=== PATIENT | male | born 1960 | race African-American/Black ===

== ENCOUNTER → 2016-10-28 | Outpatient (CLI) | payer MEDICARE, MEDICAID ==
--- NOTE | 2016-11-17 01:24 | ECWPNPC ---
PATIENT NAME: DELL MCCANN : 1960 GENDER: MALE VISIT DATE: 10/28/2016 DISCHARGE DATE: 10/28/16 1024 VISIT LOCKED DATE TIME: PHYSICIAN: SATYA SLAUGHTER RESOURCE: SATYA SLAUGHTER REASON FOR APPOINTMENT 1. BACK PAIN HISTORY OF PRESENT ILLNESS HISTORY OF PRESENT ILLNESS: HERE FOR F/U. PAIN THE PATIENT DESCRIBES THE PAIN... FALL RISK SCREENING: SCREENING :NO FALLS IN THE PAST YEAR NEW PATIENT CONSULT: HERE FOR F/U AFTER INITIAL EVALUATION ONE MONTH AGO.COMPLAINING OF MIGRAINE HEADACHES WITH TRAMADOL.RATING LOW BACK PAIN 8/10 VAS.HAD LESI IN [place] IN 2008 AND 2009 AND HAD ONLY 2WEEKS IMPROVEMENT.NOT INTERESTED IN INTERVENTIONAL THERAPY.WAS USING PERCOCET 5/325 BID THAT PATIENT FOUND HELPFUL.THIS ALLOWED HIM TO BE ABLE TO GET OUT OF BED.NOW HE HAS TO USE WALKER.STATES TRAMADOL WAS RECENTLY PRESCRIBED BUT PATIENT WAS UNABLE TO GET FILLED AT PHARMACY.RATING PAIN VAS 8/10.PAIN BEGAN IN 1997 AFTER LIFTING REFRIGERATOR GOING UP STAIRS.PAIN IS LOCATED ACROSS LOW BACK AND RADIATES INTO BILATERAL THIGHS.PAIN IS AGGREVATED BY PROLONGED STANDING OR WALKING. WHEN DID YOUR PAIN FIRST START? . BRIEFLY DESCRIBE HOW YOUR PAIN STARTED? . HOW DOES YOUR PAIN CHANGE WITH TIME? . DOES YOUR PAIN AWAKEN YOU FROM SLEEP? . HOW MANY HOURS OF SLEEP DO YOU NORMALLY GET? . ANY DIAGNOSTIC TESTING? . FACILITY WHERE TESTS WERE DONE? ____. PAIN TREATMENT TREATMENT YES CANCER HAVE YOU EVER HAD ANY TYPE OF CANCER?NO NO. CURRENT MEDICATIONS TAKING ALBUTEROL SULFATE (2.5 MG/3ML) 0.083% NEBULIZATION SOLUTION 3 ML INHALATION FOUR TIMES DAILY NEEDED TAKING NEBULIZER/TUBING/MOUTHPIECE - KIT TAKING NEBULIZER - DEVICE TAKING BLOOD PRESSURE MONITOR - DEVICE TAKING LANCET DEVICES - MISCELLANEOUS ICD:E11.9 _ FSBS TWICE DAILY TAKING LANCETS - MISCELLANEOUS ICD:E11.9 SUBCUTANEOUSLY FSBS TWICE DAILY TAKING SERTRALINE HCL 50 MG TABLET 1 TABLET ORALLY ONCE A DAY TAKING SINGULAIR 10 MG TABLET 1 TABLET IN THE EVENING ORALLY ONCE A DAY TAKING AMLODIPINE BESY-BENAZEPRIL HCL 2.5-10 MG CAPSULE DIRECTED ORALLY ONCE DAILY TAKING DICLOFENAC SODIUM 75 MG TABLET DELAYED RELEASE 1 TABLET WITH FOOD OR MILK ORALLY TWICE A DAY TAKING BLOOD GLUCOSE TEST STRIP - STRIP ICD:E11.9 IN VITRO FSBS TWICE DAILY TAKING NEBULIZER - DEVICE DIRECTED J44.9 FOUR TIMES DAILY NEEDED TAKING METFORMIN HCL 500 MG TABLET 1 TABLET WITH MEALS ORALLY DAILY TAKING ATORVASTATIN CALCIUM 80 MG TABLET 1 TABLET ORALLY ONCE A DAY TAKING CYCLOBENZAPRINE HCL 10 MG TABLET 1 TABLET ORALLY THREE TIMES A DAY NEEDED TAKING OXYBUTYNIN CHLORIDE ER 10 MG TABLET EXTENDED RELEASE 24 HOUR 1 TABLET ORALLY ONCE A DAY TAKING BLOOD GLUCOSE METER - KIT MONITOR ICD:E11.9 FSBS TWICE DAILY TAKING VENTOLIN HFA 108 (90 BASE) MCG/ACT AEROSOL SOLUTION 2 PUFFS NEEDED INHALATION EVERY 4 HRS PRN TAKING BLOOD PRESSURE CUFF - MISCELLANEOUS DIRECTED _ DAILY TAKING PRILOSEC 40 MG CAPSULE DELAYED RELEASE 1 CAPSULE ORALLY ONCE A DAY NOT-TAKING TRAMADOL HCL 50 MG TABLET 1 TABLET NEEDED ORALLY EVERY 6 HRS MDD:4 NOT-TAKING PRILOSEC 20 MG CAPSULE DELAYED RELEASE 1 CAP ORALLY ONCE A DAY PAST MEDICAL HISTORY HYPERTENSION DIABETES 2 HYPERLIPIDEMIA CHRONIC BACK PAIN CHRONIC BILATERAL KNEE PAIN - "ARTHRITIS" DEPRESSION WITH SUICIDE ATTEMPT IN 2011 - [facility] STAY FOR 1 MONTH ALLERGIES PENICILLIN V POTASSIUM: SWELLING: ALLERGY TRAMADOL HCL: HEADACHES: SIDE EFFECTS SOCIAL HISTORY GENERAL: TOBACCO USE ARE YOU A:CURRENT SMOKER HOW MANY CIGARETTES A DAY DO YOU SMOKE?- PATIENT COUNSELED ON THE DANGERS OF TOBACCO USE AND URGED TO QUIT:10/28/2016 ARE YOU INTERESTED IN QUITTING?THINKING ABOUT QUITTING COUNSELED THE PATIENT ON SMOKING CESSATION, EDUCATION [id number] LEARNING BARRIERS / SPECIAL NEEDS ORIENTED TO PLAN OF CARE: PATIENT, PAIN MANAGEMENT PATIENT, ORIENTED TO PLAN OF CARE: PATIENT, PAIN MANAGEMENT PATIENT. NEW PATIENT PAIN DIARY TODAY'S VISITNOTES FROM 0-10, WHAT LEVEL IS YOUR PAIN TODAY?0 PAIN CLINIC PFS, CLERGY, PUBLIC HEALTH REFERRALS PFS REFERRAL NEEDED?NO CLERGY REFERRAL NEEDED?NO PUBLIC HEALTH REFERRAL NEEDED?NO WAS THE PROVIDER NOTIFIED OF ANY PERTINENT INFO?NO PFS REFERRAL NEEDED?NO CLERGY REFERRAL NEEDED?NO PUBLIC HEALTH REFERRAL NEEDED?NO WAS THE PROVIDER NOTIFIED OF ANY PERTINENT INFO?NO REVIEW OF SYSTEMS CONSTITUTIONAL: ANY CHANGE IN YOUR MEDICAL CONDITION? NO . CHILLS NO . FEVER NO . INFECTION: DO YOU HAVE NEW INFECTIONS? NO . DO YOU HAVE HISTORY OF MRSA? NO . MUSCULOSKELETAL: ANY NEW PATTERNS OF PAIN OR NUMBNESS? NO . GASTROENTEROLOGY: ANY NEW CHANGE IN BOWEL CONTROL? YES . GENITOURINARY: ANY NEW CHANGE IN BLADDER CONTROL? NO . IS THERE A CHANCE YOU COULD BE ? NO . HEMATOLOGY/LYMPH: DO YOU TAKE ANY BLOOD THINNERS? (FOR EXAMPLE- COUMADIN, PLAVIX, AGGRENOX, PLATEL, PRADAXA, OR XARELTO) NO . WHEN WAS YOUR LAST DOSE? DATE: TIME: . NEUROLOGY: HAVE YOU FALLEN IN THE PAST 6 MONTHS? NO . ANY NEW EXTREMITY NUMBNESS OR WEAKNESS? NO . CARDIOLOGY: DO YOU HAVE A PACEMAKER OR DEFIBRILLATOR? NO . RESPIRATORY: HAVE YOU BEEN SICK IN THE PAST WEEK? NO . FEVER NO . FLU LIKE SYMPTOMS? NO . COUGH NO . INTEGUMENTARY: DO YOU HAVE ANY RASHES OR OPEN SORES? NO . ALLERGIC/IMMUNO: ARE YOU ALLERGIC TO SHELLFISH OR IV DYE? NO . ANY NEW ALLERGIES? NO . PSYCHIATRIC: DO YOU HAVE THOUGHTS OF HURTING YOURSELF OR SOMEONE ELSE? NO . ARE YOU ABUSED, NEGLECTED, OR IN AN UNSAFE ENVIRONMENT? NO . ENDOCRINOLOGY: ARE YOU DIABETIC? YES . OTHER: DO YOU NEED ANY PRESCRIPTIONS? NO . IF YES, PLEASE LIST: ____ . ANY NEW PROBLEMS WITH YOUR MEDICATIONS? NO . WHEN DID YOU LAST EAT? ____ . WHEN DID YOU LAST DRINK? ____ . WHAT DID YOU LAST DRINK? ____ . NAME OF PERSON DRIVING YOU HOME? ____ . DO YOU HAVE ANY OTHER QUESTIONS OR CONCERNS NO . REVIEWED BY: PROVIDER: SATYA HERNÁNDEZ . VITAL SIGNS WT 203.8 LBS, HT 71 IN, BMI 28.42 INDEX, BP 133/77 MM HG, HR 92 /MIN, RR 16 /MIN, TEMP 97.0 F, OXYGEN SAT % 100, NA INITIALS TL 0922. EXAMINATION GENERAL EXAMINATION: HEENT:HEAD:, NORMOCEPHALIC, EYES:, EYES NORMAL, NOSE:, NOSE CLEAR, THROAT: NORMAL. LUNGS:LUNG SOUNDS ARE CLEAR. HEART:HEART RATE REGULAR. ABDOMEN:SOFT AND NOT TENDER, NON-DISTENDED. MUSCULOSKELETAL:*. LUMBAR SACRAL SPINEMUSCLE STRENGTH TESTING 5/5 BILATERAL LOWER EXTREMITIES. PALPATION: POSITIVE FOR PAIN OVER L/S SPINE. POSITIVE FOR PAIN OVER L/S PARSPINALS. THORACIC SPINENEGATIVE FOR PAIN WITH PALPATION OF THORACIC SPINE. NEGATIVE FOR PAIN WITH PALPATION OF THORACIC PARASPINAL. CERVICALNEGATIVE FOR PAIN WITH PALPATION OF CERVICAL SPINE. NEGATIVE FOR PAIN WITH PALPATION OF CERVICAL PARASPINALS. NEGATIVE FOR PAIN WITH PALPATION OF TRAPEZIUS BILAT. SKIN:NORMAL, NO RASH. NEUROLOGIC EXAM:ALERT AND ORIENTED X 3, DTRS 1-2+ IN ALL 4 EXTREMITIES, DENIES UPPER EXTREMETIES SENSORY LOSS, DENIES LOWER EXTREMETIES SENSORY LOSS. DIAGNOSTIC: . ASSESSMENTS LUMBAGO WITH SCIATICA, LEFT SIDE - M54.42 (PRIMARY) LUMBAGO WITH SCIATICA, RIGHT SIDE - M54.41 TREATMENT LUMBAGO WITH SCIATICA, LEFT SIDE NOTES: GET ACETAMINOPHEN 650MG TAB TAKE 2 IN AM AND 2 IN PM.CONTINUE CYCLOBENZAPRINE 10MG THREE TIMES DAY AND DICLOFENAC 75MG AM AND PM. PROCEDURE CODES FA211 ESTABILISHED PATIENT [facility] FACILITY CHARGE G8730 PAIN ASSESS POS TOOL F/U PLAN DOC G8427 DOC MEDS VERIFIED W/PT OR RE FOLLOW UP 4 WEEKS (REASON: F/U MRI) ELECTRONICALLY SIGNED BY EDGAR RAMIREZ ON 11/15/2016 AT 04:15 PM EST DISCLAIMER : THIS IS A VISIT SUMMARY EXTRACTED FROM THE [facility] CHART. IT IS NOT A COPY OF THE [employer] PROGRESS NOTE. SHELBY
== END ==
LOC: M PAIN 09:40
PROVIDERS: ATTEND Nurse Practitioner Family
DX: Z09 Encounter for follow-up examination after completed treatment for conditions other than malignant neoplasm (principal); G89.29 Other chronic pain; M54.42 Lumbago with sciatica, left side; M54.41 Lumbago with sciatica, right side; I10 Essential (primary) hypertension; E11.9 Type 2 diabetes mellitus without complications; E78.5 Hyperlipidemia, unspecified; M17.0 Bilateral primary osteoarthritis of knee; F32.9 Major depressive disorder, single episode, unspecified; F17.200 Nicotine dependence, unspecified, uncomplicated; Z88.0 Allergy status to penicillin; Z88.5 Allergy status to narcotic agent; Z79.84 Long term (current) use of oral hypoglycemic drugs; Z79.899 Other long term (current) drug therapy; Z91.5 Personal history of self-harm

== ENCOUNTER → 2016-11-24 | Outpatient (CLI) | payer MEDICARE, MEDICAID ==
--- NOTE | 2016-12-02 00:31 | ECWPNPC ---
PATIENT NAME: DELL MCCANN : 1960 GENDER: MALE VISIT DATE: 11/24/2016 DISCHARGE DATE: 11/24/16 1013 VISIT LOCKED DATE TIME: PHYSICIAN: SATYA SLAUGHTER RESOURCE: SATYA SLAUGHTER REASON FOR APPOINTMENT 1. KECIA/NEED IESHA SIGNED FOR RECORDS HISTORY OF PRESENT ILLNESS HISTORY OF PRESENT ILLNESS: HERE FOR F/U AND MANAGEMENT OF CHRONIC LOW BACK PAIN AND BILAT. LEG PAIN.RATING PAIN VAS 7/10 .REVIEWED MRI L/S SPINE 11-03-16.SHOWING MULTI LEVEL FACET ARTHROPATHY.DISCUSSED MEDICINE AND TREATMENT OPTIONS.TRAMADOL CAUSES MIGRAINES AND CURRENT TYLENOL 500MG BID INEFFECTIVE.DESCRIBES PAIN ACHING AND SORE. FALL RISK SCREENING: SCREENING :NO FALLS IN THE PAST YEAR CURRENT MEDICATIONS TAKING NEBULIZER/TUBING/MOUTHPIECE - KIT TAKING LANCET DEVICES - MISCELLANEOUS ICD:E11.9 _ FSBS TWICE DAILY TAKING LANCETS - MISCELLANEOUS ICD:E11.9 SUBCUTANEOUSLY FSBS TWICE DAILY TAKING SERTRALINE HCL 50 MG TABLET 1 TABLET ORALLY ONCE A DAY TAKING SINGULAIR 10 MG TABLET 1 TABLET IN THE EVENING ORALLY ONCE A DAY TAKING AMLODIPINE BESY-BENAZEPRIL HCL 2.5-10 MG CAPSULE DIRECTED ORALLY ONCE DAILY TAKING DICLOFENAC SODIUM 75 MG TABLET DELAYED RELEASE 1 TABLET WITH FOOD OR MILK ORALLY TWICE A DAY TAKING BLOOD GLUCOSE TEST STRIP - STRIP ICD:E11.9 IN VITRO FSBS TWICE DAILY TAKING NEBULIZER - DEVICE DIRECTED J44.9 FOUR TIMES DAILY NEEDED TAKING METFORMIN HCL 500 MG TABLET 1 TABLET WITH MEALS ORALLY DAILY TAKING ATORVASTATIN CALCIUM 80 MG TABLET 1 TABLET ORALLY ONCE A DAY TAKING CYCLOBENZAPRINE HCL 10 MG TABLET 1 TABLET ORALLY THREE TIMES A DAY NEEDED TAKING OXYBUTYNIN CHLORIDE ER 10 MG TABLET EXTENDED RELEASE 24 HOUR 1 TABLET ORALLY ONCE A DAY TAKING BLOOD GLUCOSE METER - KIT MONITOR ICD:E11.9 FSBS TWICE DAILY TAKING BLOOD PRESSURE CUFF - MISCELLANEOUS DIRECTED _ DAILY TAKING PRILOSEC 40 MG CAPSULE DELAYED RELEASE 1 CAPSULE ORALLY ONCE A DAY TAKING BLOOD PRESSURE MONITOR - DEVICE 1 MONITOR _DX:I10 DAILY TAKING ALBUTEROL SULFATE (2.5 MG/3ML) 0.083% NEBULIZATION SOLUTION 3 ML INHALATION FOUR TIMES DAILY NEEDED TAKING NEBULIZER - DEVICE 1 DEVICE DX:J45.998 FOUR TIMES DAILY NEEDED TAKING VENTOLIN HFA 108 (90 BASE) MCG/ACT AEROSOL SOLUTION 2 PUFFS NEEDED INHALATION EVERY 4 HRS PRN NOT-TAKING PRILOSEC 20 MG CAPSULE DELAYED RELEASE 1 CAP ORALLY ONCE A DAY DISCONTINUED TRAMADOL HCL 50 MG TABLET 1 TABLET NEEDED ORALLY EVERY 6 HRS MDD:4 MEDICATION LIST REVIEWED AND RECONCILED WITH THE PATIENT PAST MEDICAL HISTORY HYPERTENSION DIABETES 2 HYPERLIPIDEMIA CHRONIC BACK PAIN CHRONIC BILATERAL KNEE PAIN - "ARTHRITIS" DEPRESSION WITH SUICIDE ATTEMPT IN 2012 - [facility] STAY FOR 1 MONTH ALLERGIES PENICILLIN V POTASSIUM: SWELLING: ALLERGY TRAMADOL HCL: MIGRAINES: SIDE EFFECTS SOCIAL HISTORY GENERAL: TOBACCO USE ARE YOU A:CURRENT SMOKER HOW MANY CIGARETTES A DAY DO YOU SMOKE?5 OR LESS HOW SOON AFTER YOU WAKE UP DO YOU SMOKE YOUR FIRST CIGARETTE?6-30 MIN HOW OFTEN DO YOU SMOKE CIGARETTES?EVERY DAY PATIENT COUNSELED ON THE DANGERS OF TOBACCO USE AND URGED TO QUIT: COUNCELED ON THE IMPORTANCE OF QUITTING. STATES HE IS TRYING TO DECREASE THE AMT HE SMOKES. DOWN FROM 2PPD ARE YOU INTERESTED IN QUITTING?THINKING ABOUT QUITTING LEARNING BARRIERS / SPECIAL NEEDS ORIENTED TO PLAN OF CARE: PATIENT, PAIN MANAGEMENT PATIENT, ORIENTED TO PLAN OF CARE: PATIENT, PAIN MANAGEMENT PATIENT. NEW PATIENT PAIN DIARY TODAY'S VISITNOTES FROM 0-10, WHAT LEVEL IS YOUR PAIN TODAY?0 PAIN CLINIC PFS, CLERGY, PUBLIC HEALTH REFERRALS PFS REFERRAL NEEDED?NO CLERGY REFERRAL NEEDED?NO PUBLIC HEALTH REFERRAL NEEDED?NO WAS THE PROVIDER NOTIFIED OF ANY PERTINENT INFO?NO PFS REFERRAL NEEDED?NO CLERGY REFERRAL NEEDED?NO PUBLIC HEALTH REFERRAL NEEDED?NO WAS THE PROVIDER NOTIFIED OF ANY PERTINENT INFO?NO REVIEW OF SYSTEMS CONSTITUTIONAL: ANY CHANGE IN YOUR MEDICAL CONDITION? NO . CHILLS NO . FEVER NO . INFECTION: DO YOU HAVE NEW INFECTIONS? NO . DO YOU HAVE HISTORY OF MRSA? NO . MUSCULOSKELETAL: ANY NEW PATTERNS OF PAIN OR NUMBNESS? NO . GASTROENTEROLOGY: ANY NEW CHANGE IN BOWEL CONTROL? NO . GENITOURINARY: ANY NEW CHANGE IN BLADDER CONTROL? NO . IS THERE A CHANCE YOU COULD BE ? NO . HEMATOLOGY/LYMPH: DO YOU TAKE ANY BLOOD THINNERS? (FOR EXAMPLE- COUMADIN, PLAVIX, AGGRENOX, PLATEL, PRADAXA, OR XARELTO) NO . WHEN WAS YOUR LAST DOSE? DATE: TIME: . NEUROLOGY: HAVE YOU FALLEN IN THE PAST 6 MONTHS? YES, APPROX 2 WEEKS, NO INJURIES . ANY NEW EXTREMITY NUMBNESS OR WEAKNESS? NO . CARDIOLOGY: DO YOU HAVE A PACEMAKER OR DEFIBRILLATOR? NO . RESPIRATORY: HAVE YOU BEEN SICK IN THE PAST WEEK? NO . FEVER NO . FLU LIKE SYMPTOMS? NO . COUGH NO . INTEGUMENTARY: DO YOU HAVE ANY RASHES OR OPEN SORES? NO . ALLERGIC/IMMUNO: ARE YOU ALLERGIC TO SHELLFISH OR IV DYE? NO . ANY NEW ALLERGIES? NO . PSYCHIATRIC: DO YOU HAVE THOUGHTS OF HURTING YOURSELF OR SOMEONE ELSE? NO . ARE YOU ABUSED, NEGLECTED, OR IN AN UNSAFE ENVIRONMENT? NO . ENDOCRINOLOGY: ARE YOU DIABETIC? YES . OTHER: IF YES, PLEASE LIST: ____ . ANY NEW PROBLEMS WITH YOUR MEDICATIONS? NO . WHEN DID YOU LAST EAT? ____ . WHEN DID YOU LAST DRINK? ____ . WHAT DID YOU LAST DRINK? ____ . NAME OF PERSON DRIVING YOU HOME? ____ . DO YOU HAVE ANY OTHER QUESTIONS OR CONCERNS YES, NEEDS SOMETHING FOR PAIN AND ? PORTABLE TENS UNIT . REVIEWED BY: PROVIDER: SATYA HERNÁNDEZ . VITAL SIGNS WT 215 LBS, HT 71 IN, BMI 29.98 INDEX, BP 126/83 MM HG, HR 78 /MIN, RR 18 /MIN, TEMP 97.0 F, OXYGEN SAT % 98, NA INITIALS TL 0859, REVIEWED BY: AD. EXAMINATION GENERAL EXAMINATION: HEENT:HEAD:, NORMOCEPHALIC, EYES:, EYES NORMAL, NOSE:, NOSE CLEAR, THROAT: NORMAL. LUNGS:LUNG SOUNDS ARE CLEAR. HEART:HEART RATE REGULAR. ABDOMEN:SOFT AND NOT TENDER, NON-DISTENDED. MUSCULOSKELETAL:*. LUMBAR SACRAL SPINEMUSCLE STRENGTH TESTING 5/5 BILATERAL LOWER EXTREMITIES. PALPATION: POSITIVE FOR PAIN OVER L/S SPINE. POSITIVE FOR PAIN OVER L/S PARSPINALS. THORACIC SPINENEGATIVE FOR PAIN WITH PALPATION OF THORACIC SPINE. NEGATIVE FOR PAIN WITH PALPATION OF THORACIC PARASPINAL. CERVICALNEGATIVE FOR PAIN WITH PALPATION OF CERVICAL SPINE. NEGATIVE FOR PAIN WITH PALPATION OF CERVICAL PARASPINALS. NEGATIVE FOR PAIN WITH PALPATION OF TRAPEZIUS BILAT. SKIN:NORMAL, NO RASH. NEUROLOGIC EXAM:ALERT AND ORIENTED X 3, DTRS 1-2+ IN ALL 4 EXTREMITIES, DENIES UPPER EXTREMETIES SENSORY LOSS, DENIES LOWER EXTREMETIES SENSORY LOSS. DIAGNOSTIC:MRI L/S SUOPO-[id number]-REVIEWED WITH PATIENT.. ASSESSMENTS LUMBAR FACET ARTHROPATHY - M12.88 (PRIMARY) TREATMENT LUMBAR FACET ARTHROPATHY START PERCOCET TABLET, 5-325 MG, 1 TABLET NEEDED, ORALLY, Q8H PRN PAIN MDD3, 30 DAY(S), 30, REFILLS 0 LUMBAR FACET THERAPEUTICSATYA SLAUGHTER 12/01/2016 9:55:18 AM > BILAT. L4/5-L5/S1 THERAPEUTIC FACET BLOCK NOTES: FACET JOINT INJECTION MATERIAL WAS PRINTED,FACET JOINT INJECTION: YOUR EXPERIENCE MATERIAL WAS PRINTED,FACET JOINT INJECTION: YOUR EXPERIENCE MATERIAL WAS PRINTED. PREVENTIVE MEDICINE PAIN CLINIC TEACHING: MEDICATIONS PRINTED INFORMATION ON PERCOCET GIVEN TO AND EXPLAINED TO PATIENT.. PROCEDURE CODES FA211 ESTABILISHED PATIENT [facility] CHARGE G8730 PAIN ASSESS POS TOOL F/U PLAN DOC G8427 DOC MEDS VERIFIED W/PT OR RE DISPOSITION & COMMUNICATION FOLLOW UP 2WK POST PROCEDURE (REASON: LUMBAR L4/5-L5/S1 THERAPEUTIC FACET BLOCK) ELECTRONICALLY SIGNED BY EDGAR RAMIREZ ON 12/01/2016 AT 09:57 AM EST DISCLAIMER : THIS IS A VISIT SUMMARY EXTRACTED FROM THE [employer] CHART. IT IS NOT A COPY OF THE [employer] PROGRESS NOTE. SHELBY
== END ==
LOC: M PAIN 09:00
PROVIDERS: ATTEND Nurse Practitioner Family
DX: Z09 Encounter for follow-up examination after completed treatment for conditions other than malignant neoplasm (principal); G89.29 Other chronic pain; M12.88 Other specific arthropathies, not elsewhere classified, other specified site; M54.42 Lumbago with sciatica, left side; M54.41 Lumbago with sciatica, right side; I10 Essential (primary) hypertension; E11.9 Type 2 diabetes mellitus without complications; E78.5 Hyperlipidemia, unspecified; K21.9 Gastro-esophageal reflux disease without esophagitis; F32.9 Major depressive disorder, single episode, unspecified; J45.998 Other asthma; F17.200 Nicotine dependence, unspecified, uncomplicated; Z88.0 Allergy status to penicillin; Z88.5 Allergy status to narcotic agent; Z79.84 Long term (current) use of oral hypoglycemic drugs; Z79.899 Other long term (current) drug therapy; Z91.5 Personal history of self-harm

== ENCOUNTER 2016-12-15 10:22 | Emergency (ER) | payer MEDICARE, MEDICAID ==
[~2016-12-15] VITALS: Ht 180.3 cm; Wt 93.0 kg
[2016-12-15] MEDS ORDERED: SERT50TA (10:44)
[2016-12-15] MEDS ORDERED: ATOR1TAB18 (10:44)
[2016-12-15] MEDS ORDERED: AMLOD/BENAZP (10:44)
[2016-12-15] MEDS ORDERED: METF500T (10:44)
[2016-12-15] MEDS ORDERED: DICL75TA (10:44)
[2016-12-15] MEDS ORDERED: OXYCOD/APAP (10:44)
[2016-12-15] MEDS ORDERED: OXYB10TA PO (10:51)
[2016-12-15] MEDS ORDERED: CYCL10TA PO (10:51)
[2016-12-15] MEDS ORDERED: ALBU17IN INH (10:51)
--- NOTE | 2016-12-15 11:51 | REP ---
Chest x-ray: Two views. History: Cough. Comparison study: July 31, 2016 . Findings: The lungs are well inflated and free of infiltrate. The pleural angles are sharp. The heart size is normal. Pulmonary vasculature is not increased. There is a small bone island in the anterior end of the right 8th rib unchanged. There are some degenerative changes in the thoracic spine. No significant bony abnormality is seen. Impression: No active disease. Signed by Akbar Walker MD 12/15/2016 11:42 A
[2016-12-15] MEDS ORDERED: TESS100C PO (11:56)
[2016-12-15] MEDS ORDERED: FLON1SPR (11:56)
[2016-12-15 12:26] VITALS: BP 138/96
== END 2016-12-15 12:25 | disposition home or self-care (01) ==
LOC: M ED 11:24
DX: J06.9 Acute upper respiratory infection, unspecified (principal); E11.9 Type 2 diabetes mellitus without complications; I10 Essential (primary) hypertension; J45.909 Unspecified asthma, uncomplicated; K21.9 Gastro-esophageal reflux disease without esophagitis; F32.9 Major depressive disorder, single episode, unspecified; Z88.8 Allergy status to other drugs, medicaments and biological substances; Z88.0 Allergy status to penicillin; Z79.84 Long term (current) use of oral hypoglycemic drugs; Z79.899 Other long term (current) drug therapy; E78.00 Pure hypercholesterolemia, unspecified; M54.9 Dorsalgia, unspecified; F90.9 Attention-deficit hyperactivity disorder, unspecified type

== ENCOUNTER → 2016-12-19 | Outpatient (CLI) | payer MEDICARE, MEDICAID ==
[~2016-12-19] MED LIST: ALBU17IN INH; AMLOD/BENAZP; ATOR1TAB18; BUPIVACAINE HCL 0.25% 30 ML VIAL As Ordered ONE; CYCL10TA PO; DICL75TA; FLON1SPR; ISOVUE-M 300 61% 15ML VIAL (Q9967) As Ordered ONE; LIDOCAINE 1% SDV INJ 30 ML VIAL As Ordered ONE; METF500T; OXYB10TA PO; OXYCOD/APAP; SERT50TA; TESS100C PO; TRIAMCINOLONE ACETONIDE SUSP 40 MG/ML VIAL (J3301) As Ordered ONE
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
== END ==
LOC: M PAIN 08:40
PROVIDERS: ATTEND Anesthesiology
DX: Z09 Encounter for follow-up examination after completed treatment for conditions other than malignant neoplasm (principal); G89.29 Other chronic pain; M47.816 Spondylosis without myelopathy or radiculopathy, lumbar region; M47.817 Spondylosis without myelopathy or radiculopathy, lumbosacral region; I10 Essential (primary) hypertension; E11.9 Type 2 diabetes mellitus without complications; E78.5 Hyperlipidemia, unspecified; M17.0 Bilateral primary osteoarthritis of knee; F32.9 Major depressive disorder, single episode, unspecified; Z88.0 Allergy status to penicillin; Z88.5 Allergy status to narcotic agent; Z79.84 Long term (current) use of oral hypoglycemic drugs; Z79.899 Other long term (current) drug therapy

== ENCOUNTER → 2016-12-21 | Outpatient (CLI) | payer MEDICARE, MEDICAID ==
[~2016-12-21] MED LIST changes: -BUPIVACAINE HCL 0.25% 30 ML VIAL As Ordered ONE; -ISOVUE-M 300 61% 15ML VIAL (Q9967) As Ordered ONE; -LIDOCAINE 1% SDV INJ 30 ML VIAL As Ordered ONE; -TRIAMCINOLONE ACETONIDE SUSP 40 MG/ML VIAL (J3301) As Ordered ONE
--- NOTE | 2016-12-21 23:26 | ECWPNPC ---
PATIENT NAME: DELL MCCANN : 1960 GENDER: MALE VISIT DATE: 12/21/2016 DISCHARGE DATE: 12/21/16 1544 VISIT LOCKED DATE TIME: PHYSICIAN: SATYA SLAUGHTER RESOURCE: SATYA SLAUGHTER REASON FOR APPOINTMENT 1. MEDS HISTORY OF PRESENT ILLNESS HISTORY OF PRESENT ILLNESS: HERE FOR F/U AND MANAGEMENT OF CHRONIC LOW BACK PAIN AND BILAT. LEG PAIN.RATING PAIN VAS 7/10 .STARTED ON PERCOCET 5/325 LAST MONTH #30 FOR A ONE MONTH SUPPLY.HE WAS GIVEN INSTRUCTION TO USE IT SPARINGLY FOR SEVERE PAIN EPISODES. STATES HE TOOK 2 PERCOCET 3X DAY AND RAN OUT LAST WEEK.ALSO TAKING 500MG IBUPROFEN 3X DAY PLUS DICLOFENAC BID.WE HAD A LONG DISCUSSION THAT TOOK >20MIN. OF EXAM TIME REGARDING POTENTIAL DANGERS OF HIGH DOSE NSAIDS AND ADJUSTING HIS MEDICATION ON HIS OWN.DISCUSSED MEDICINE AND TREATMENT OPTIONS.TRAMADOL CAUSES MIGRAINES AND CURRENT TYLENOL 500MG BID INEFFECTIVE.DESCRIBES PAIN ACHING AND SORE.RATING PAIN VAS 7/10.WILL BE ATTENDING PT.DENIES ACTIVE SUICIDAL IDEATIONS BUT DOES ADMIT THAT HE CALLED EMERGENCY COUNSELOR DUE TO SUICIDAL THOUGHTS. PAIN THE PATIENT DESCRIBES THE PAIN... THE PATIENT DESCRIBES THE PAIN... FALL RISK SCREENING: SCREENING :NO FALLS IN THE PAST YEAR CURRENT MEDICATIONS TAKING PRILOSEC 40 MG CAPSULE DELAYED RELEASE 1 CAPSULE ONCE A DAY ORALLY 30 DAY(S) , NOTES: 12-18-16899 TAKING PERCOCET 5-325 MG TABLET 1 TABLET NEEDED ORALLY Q8H PRN PAIN MDD3, NOTES: [id number] TAKING LANCET DEVICES - MISCELLANEOUS ICD:E11.9 _ FSBS TWICE DAILY TAKING LANCETS - MISCELLANEOUS ICD:E11.9 SUBCUTANEOUSLY FSBS TWICE DAILY TAKING SERTRALINE HCL 50 MG TABLET 1 TABLET ORALLY ONCE A DAY, NOTES: 12-18-16899 TAKING SINGULAIR 10 MG TABLET 1 TABLET IN THE EVENING ORALLY ONCE A DAY, NOTES: 12-18-16899 TAKING AMLODIPINE BESY-BENAZEPRIL HCL 2.5-10 MG CAPSULE DIRECTED ORALLY ONCE DAILY, NOTES: 12-18-16 TAKING DICLOFENAC SODIUM 75 MG TABLET DELAYED RELEASE 1 TABLET WITH FOOD OR MILK ORALLY TWICE A DAY, NOTES: 12-18-16899 TAKING BLOOD GLUCOSE TEST STRIP - STRIP ICD:E11.9 IN VITRO FSBS TWICE DAILY TAKING NEBULIZER - DEVICE DIRECTED J44.9 FOUR TIMES DAILY NEEDED, NOTES: 12-16-16 08 TAKING METFORMIN HCL 500 MG TABLET 1 TABLET WITH MEALS ORALLY DAILY, NOTES: 12-18-16799 TAKING ATORVASTATIN CALCIUM 80 MG TABLET 1 TABLET ORALLY ONCE A DAY, NOTES: 12-18-16899 TAKING CYCLOBENZAPRINE HCL 10 MG TABLET 1 TABLET ORALLY THREE TIMES A DAY NEEDED, NOTES: 12-18-16899 TAKING OXYBUTYNIN CHLORIDE ER 10 MG TABLET EXTENDED RELEASE 24 HOUR 1 TABLET ORALLY ONCE A DAY, NOTES: 12-18-16=0900 TAKING BLOOD GLUCOSE METER - KIT MONITOR ICD:E11.9 FSBS TWICE DAILY TAKING BLOOD PRESSURE CUFF - MISCELLANEOUS DIRECTED _ DAILY TAKING BLOOD PRESSURE MONITOR - DEVICE 1 MONITOR _DX:I10 DAILY TAKING ALBUTEROL SULFATE (2.5 MG/3ML) 0.083% NEBULIZATION SOLUTION 3 ML INHALATION FOUR TIMES DAILY NEEDED, NOTES: 12-16-16899 TAKING NEBULIZER - DEVICE 1 DEVICE DX:J45.998 FOUR TIMES DAILY NEEDED TAKING VENTOLIN HFA 108 (90 BASE) MCG/ACT AEROSOL SOLUTION 2 PUFFS NEEDED INHALATION EVERY 4 HRS PRN, NOTES: 12-16-16799 TAKING FLONASE ALLERGY RELIEF 50 MCG/ACT SUSPENSION 1 SPRAY IN EACH NOSTRIL NASALLY ONCE A DAY, NOTES: 12-18-16899 TAKING TESSALON PERLES 100 MG CAPSULE 1 CAPSULE NEEDED ORALLY THREE TIMES A DAY, NOTES: 12-16-16899 TAKING IBUPROFEN 2.5 TABS ORAL EVERY 4HRS NEEDED NOT-TAKING PRILOSEC 20 MG CAPSULE DELAYED RELEASE 1 CAP ORALLY ONCE A DAY UNKNOWN NEBULIZER/TUBING/MOUTHPIECE - KIT MEDICATION LIST REVIEWED AND RECONCILED WITH THE PATIENT PAST MEDICAL HISTORY HYPERTENSION DIABETES 2 HYPERLIPIDEMIA CHRONIC BACK PAIN CHRONIC BILATERAL KNEE PAIN - "ARTHRITIS" DEPRESSION WITH SUICIDE ATTEMPT IN 2011 - [facility] STAY FOR 1 MONTH ALLERGIES PENICILLIN V POTASSIUM: SWELLING: ALLERGY TRAMADOL HCL: MIGRAINES: SIDE EFFECTS SOCIAL HISTORY GENERAL: TOBACCO USE ARE YOU A:NONSMOKER LEARNING BARRIERS / SPECIAL NEEDS ORIENTED TO PLAN OF CARE: PATIENT, PAIN MANAGEMENT PATIENT, ORIENTED TO PLAN OF CARE: PATIENT, PAIN MANAGEMENT PATIENT. NEW PATIENT PAIN DIARY TODAY'S VISITNOTES FROM 0-10, WHAT LEVEL IS YOUR PAIN TODAY?0 PAIN CLINIC PFS, CLERGY, PUBLIC HEALTH REFERRALS PFS REFERRAL NEEDED?NO CLERGY REFERRAL NEEDED?NO PUBLIC HEALTH REFERRAL NEEDED?NO WAS THE PROVIDER NOTIFIED OF ANY PERTINENT INFO?NO PFS REFERRAL NEEDED?NO CLERGY REFERRAL NEEDED?NO PUBLIC HEALTH REFERRAL NEEDED?NO WAS THE PROVIDER NOTIFIED OF ANY PERTINENT INFO?NO REVIEW OF SYSTEMS CONSTITUTIONAL: ANY CHANGE IN YOUR MEDICAL CONDITION? NO . CHILLS NO . FEVER NO . INFECTION: DO YOU HAVE NEW INFECTIONS? NO . DO YOU HAVE HISTORY OF MRSA? NO . MUSCULOSKELETAL: ANY NEW PATTERNS OF PAIN OR NUMBNESS? YES PT NOTES 1 WEEK HX OF PAIN LEFT ELBOW TO LEFT NECK PAIN. PT DENIES CHEST PAIN. PT STATES PAIN IS WORSE WITH MOVEMENT OF LEFT ARM. . GASTROENTEROLOGY: ANY NEW CHANGE IN BOWEL CONTROL? NO . GENITOURINARY: ANY NEW CHANGE IN BLADDER CONTROL? NO . IS THERE A CHANCE YOU COULD BE ? NO . HEMATOLOGY/LYMPH: DO YOU TAKE ANY BLOOD THINNERS? (FOR EXAMPLE- COUMADIN, PLAVIX, AGGRENOX, PLATEL, PRADAXA, OR XARELTO) NO . WHEN WAS YOUR LAST DOSE? DATE: TIME: . NEUROLOGY: HAVE YOU FALLEN IN THE PAST 6 MONTHS? NO . ANY NEW EXTREMITY NUMBNESS OR WEAKNESS? NO . CARDIOLOGY: DO YOU HAVE A PACEMAKER OR DEFIBRILLATOR? NO . RESPIRATORY: HAVE YOU BEEN SICK IN THE PAST WEEK? YES URI LAST WEEK WITH COUGH. SEEN BY MD. . FEVER NO . FLU LIKE SYMPTOMS? NO . COUGH YES, CLEAR SPUTUM, WHITE SPUTUM . INTEGUMENTARY: DO YOU HAVE ANY RASHES OR OPEN SORES? NO . ALLERGIC/IMMUNO: ARE YOU ALLERGIC TO SHELLFISH OR IV DYE? NO . ANY NEW ALLERGIES? NO . PSYCHIATRIC: DO YOU HAVE THOUGHTS OF HURTING YOURSELF OR SOMEONE ELSE? NO . ARE YOU ABUSED, NEGLECTED, OR IN AN UNSAFE ENVIRONMENT? NO . ENDOCRINOLOGY: ARE YOU DIABETIC? YES . OTHER: DO YOU NEED ANY PRESCRIPTIONS? NO . IF YES, PLEASE LIST: ____ . ANY NEW PROBLEMS WITH YOUR MEDICATIONS? NO . WHEN DID YOU LAST EAT? ____ . WHEN DID YOU LAST DRINK? ____ . WHAT DID YOU LAST DRINK? ____ . NAME OF PERSON DRIVING YOU HOME? ____ . DO YOU HAVE ANY OTHER QUESTIONS OR CONCERNS NO . REVIEWED BY: PROVIDER: SATYA SLAUGHTER [employer] . VITAL SIGNS WT 218.2 LBS, HT 71 IN, BMI 30.43 INDEX, BP 132/81 MM HG, HR 71 /MIN, RR 18 /MIN, TEMP 96.2 F, OXYGEN SAT % 98%, NA INITIALS AW 217, REVIEWED BY: MLF. EXAMINATION GENERAL EXAMINATION: HEENT:HEAD:, NORMOCEPHALIC, EYES:, EYES NORMAL, NOSE:, NOSE CLEAR, THROAT: NORMAL. LUNGS:LUNG SOUNDS ARE CLEAR. HEART:HEART RATE REGULAR. ABDOMEN:SOFT AND NOT TENDER, NON-DISTENDED. MUSCULOSKELETAL:*. LUMBAR SACRAL SPINEMUSCLE STRENGTH TESTING 5/5 BILATERAL LOWER EXTREMITIES. PALPATION: POSITIVE FOR PAIN OVER L/S SPINE. POSITIVE FOR PAIN OVER L/S PARSPINALS. THORACIC SPINENEGATIVE FOR PAIN WITH PALPATION OF THORACIC SPINE. NEGATIVE FOR PAIN WITH PALPATION OF THORACIC PARASPINAL. CERVICALNEGATIVE FOR PAIN WITH PALPATION OF CERVICAL SPINE. NEGATIVE FOR PAIN WITH PALPATION OF CERVICAL PARASPINALS. NEGATIVE FOR PAIN WITH PALPATION OF TRAPEZIUS BILAT. SKIN:NORMAL, NO RASH. NEUROLOGIC EXAM:ALERT AND ORIENTED X 3, DTRS 1-2+ IN ALL 4 EXTREMITIES, DENIES UPPER EXTREMETIES SENSORY LOSS, DENIES LOWER EXTREMETIES SENSORY LOSS. DIAGNOSTIC:MRI L/S [id number]-REVIEWED WITH PATIENT.. ASSESSMENTS LUMBAR FACET ARTHROPATHY - M12.88 (PRIMARY) CHRONIC PRESCRIPTION OPIATE USE - Z79.891 TREATMENT LUMBAR FACET ARTHROPATHY REFILL PERCOCET TABLET, 5-325 MG, 1 TABLET NEEDED, ORALLY, Q8H PRN PAIN MDD3, 30 DAY(S), 90, REFILLS 0, NOTES: [id number] CONTINUE PRILOSEC CAPSULE DELAYED RELEASE, 40 MG, 1 CAPSULE ONCE A DAY ORALLY 30 DAY(S), NOTES: 12-18-16899 STOP DICLOFENAC SODIUM TABLET DELAYED RELEASE, 75 MG, 1 TABLET WITH FOOD OR MILK, ORALLY, TWICE A DAY, NOTES: 12-18-16899 CONTINUE CYCLOBENZAPRINE HCL TABLET, 10 MG, 1 TABLET, ORALLY, BEFORE BEDTIME, 30 DAY(S), 30, REFILLS 2, NOTES: 12-18-16899 START IBUPROFEN TABLET, 600 MG, 1 TABLET, ORALLY, THREE TIMES A DAY, 30 DAY(S), 90, REFILLS 2 START ACETAMINOPHEN TABLET, 500 MG, 1, ORALLY, BID, 30 DAY(S), 60, REFILLS 2 PREVENTIVE MEDICINE PAIN CLINIC TEACHING: MEDICATIONS PRINTED HANDOUTS FOR IBUPROFEN AND ACETAMINOPHEN GIVEN/REVIEWED WITH PT.. PROCEDURE CODES FA211 ESTABILISHED PATIENT [facility] CHARGE G8730 PAIN ASSESS POS TOOL F/U PLAN DOC G8427 DOC MEDS VERIFIED W/PT OR RE DISPOSITION & COMMUNICATION FOLLOW UP 4 WEEKS ELECTRONICALLY SIGNED BY EDGAR RAMIREZ ON 12/21/2016 AT 03:58 PM EDT DISCLAIMER : THIS IS A VISIT SUMMARY EXTRACTED FROM THE [employer] CHART. IT IS NOT A COPY OF THE [employer] PROGRESS NOTE. SHELBY
== END ==
LOC: M PAIN 15:00
PROVIDERS: ATTEND Nurse Practitioner Family
DX: Z09 Encounter for follow-up examination after completed treatment for conditions other than malignant neoplasm (principal); G89.29 Other chronic pain; M54.5 Low back pain; M12.88 Other specific arthropathies, not elsewhere classified, other specified site; I10 Essential (primary) hypertension; E11.9 Type 2 diabetes mellitus without complications; E78.5 Hyperlipidemia, unspecified; M17.0 Bilateral primary osteoarthritis of knee; F32.9 Major depressive disorder, single episode, unspecified; Z91.5 Personal history of self-harm; Z79.891 Long term (current) use of opiate analgesic; Z79.1 Long term (current) use of non-steroidal anti-inflammatories (NSAID); Z79.899 Other long term (current) drug therapy; Z79.51 Long term (current) use of inhaled steroids; Z88.0 Allergy status to penicillin; Z88.5 Allergy status to narcotic agent; Z79.84 Long term (current) use of oral hypoglycemic drugs

== ENCOUNTER 2017-01-05 12:58 | Outpatient (RCR) | payer MEDICARE, MEDICAID | END 2017-01-06 | LOC: M PT 12:58 | PROVIDERS: ATTEND Anesthesiology | DX: Z51.89 Encounter for other specified aftercare (principal); M54.5 Low back pain | CPT/HCPCS: 97110; 97140; 97162; G8978; G8979 ==

== ENCOUNTER 2017-01-16 14:28 | Inpatient (IN) | payer MEDICARE, MEDICAID ==
[~2017-01-16] VITALS: Ht 180.3 cm; Wt 94.1 kg
[2017-01-16] MEDS: BENAZEPRIL 5 MG TAB PO SCH (09:00)
[2017-01-16 16:20] LABS: MEAN CORPUSCULAR HEMOGLOBIN 28.1 pg (27.0-33.0); MEAN CORPUSCULAR HGB CONC 32.7 g/dl (32.0-36.5); MEAN CORPUSCULAR VOLUME 85.8 fl (80.0-96.0); RED CELL DISTRIBUTION WIDTH 14.2 % (11.5-14.5); WHITE BLOOD COUNT 6.9 K/mm3 (4.0-10.0)
[2017-01-16 16:40] LABS: ALBUMIN 3.6 GM/DL (3.2-5.2); ALBUMIN/GLOBULIN RATIO 1.03 (1.00-1.93); ALKALINE PHOSPHATASE 79 U/L (45-117); ALT/SGPT 24 U/L (12-78); ANION GAP 6 MEQ/L (8-16); AST/SGOT 24 U/L (15-37); BILIRUBIN,DIRECT 0.1 MG/DL (0.0-0.2); BILIRUBIN,TOTAL 0.5 MG/DL (0.2-1.0); BLOOD UREA NITROGEN 15 MG/DL (7-18); CALCIUM LEVEL 8.8 MG/DL (8.5-10.1); CARBON DIOXIDE LEVEL 28 MEQ/L (21-32); CHLORIDE LEVEL 109 MEQ/L (98-107); CREATININE FOR GFR 1.09 MG/DL (0.70-1.30); GLOMERULAR FILTRATION RATE > 60.0 (>56); GLUCOSE, FASTING 98 MG/DL (70-105); POTASSIUM SERUM 3.8 MEQ/L (3.5-5.1); SODIUM LEVEL 143 MEQ/L (136-145); TOTAL PROTEIN 7.1 GM/DL (6.4-8.2)
[2017-01-16 16:54] LABS: METHADONE URINE NEGATIVE (NEGATIVE)
[2017-01-16] MEDS ORDERED: SERTRALINE 100 MG TAB PO ONE (17:45)
[2017-01-16] MEDS ORDERED: PERCOCET 5MG/325MG TAB PO ONE (17:45)
[2017-01-16] MEDS ORDERED: OMEP40CA2 PO (17:48)
[2017-01-16] MEDS ORDERED: SERT50TA PO (17:48)
[2017-01-16] MEDS ORDERED: OXYC1TAB23 PO (17:48)
[2017-01-16] MEDS ORDERED: AMLO2.5C PO ×2 (17:48→18:25)
[2017-01-16] MEDS ORDERED: TYLE500T78 PO (17:48)
[2017-01-16] MEDS ORDERED: CYCL10TA PO (18:27)
[2017-01-16] MEDS ORDERED: METF500T PO (18:27)
[2017-01-16] MEDS ORDERED: DITR1TAB PO (18:27)
[2017-01-16] MEDS ORDERED: SERT-138 PO (18:29)
[2017-01-16] MEDS ORDERED: IBUP60TA PO (18:29)
[2017-01-16] MEDS ORDERED: ATOR1TAB18 PO (18:30)
[2017-01-16 19:24] VITALS: BP 139/97
[2017-01-16] MEDS ORDERED: MOM 30ML SUSPENSION UDC PO PRN (20:45)
[2017-01-16] MEDS ORDERED: IBUPROFEN 400 MG TAB PO PRN (20:45)
[2017-01-16] MEDS ORDERED: MAALOX 30 ML SUSP *UDC PO PRN (20:45)
[2017-01-16] MEDS ORDERED: ALBUTEROL 90 MCG/ACT 8GM HFA INHALER INH PRN (20:45)
[2017-01-16] MEDS ORDERED: SERTRALINE 100 MG TAB PO SCH (21:00)
[2017-01-16] MEDS: traZODone 50 MG TAB PO PRN (21:51)
[2017-01-17] MEDS: PERCOCET 5MG/325MG TAB PO PRN ×2 (00:24→21:41)
[2017-01-17 06:11] VITALS: BP 121/78
[2017-01-17] MEDS: OMEPRAZOLE 20 MG CAP PO SCH (08:50)
[2017-01-17] MEDS: metFORMIN (GLUCOPHAGE) 500 MG TAB PO SCH (08:50)
[2017-01-17] MEDS: BENAZEPRIL 5 MG TAB PO SCH (08:51)
[2017-01-17] MEDS ORDERED: CYCLOBENZAPRINE 10 MG TAB PO ONE (09:00)
[2017-01-17] MEDS: oxyBUTYnin *DITROPAN XL* 5 MG TABCR PO SCH (10:10)
--- NOTE | 2017-01-17 10:43 | HPEPDOC ---
Medical History and Physical Date of Admission Jan 16, 2017 at 17:24 History and Physical PCP: [facility] ATTENDING: Dr. Dio Avalos HPI: 56yoM admitted to [facility] for unspecified adjustment disorder, being medically examined today. No acute medical complaints today. Patient is known to have chronic low back pain which is followed by [facility] pain management. Patient states his chronic pain is controlled. He has an appointment with pain management 01/18/17. He states he uses a walker at home. Denies any fevers, chills, weakness, fatigue, JJ, CP, SOB, cough, palpitations, abdominal pain, N/V/D or changes in bowel or bladder habits. PMHx: Chronic low back pain. [facility] pain management Asthma GERD Hypertension NIDDM OAB Depression/anxiety History of 2011 I per lipidemia PSHX: Pain clinic injections low back SOCHX: Resides in: [place] Marital Status: Kids: 1 Employment: Unemployed Tobacco use: 10 per day ETOH: Once per month one pitcher of beer Illicit Drugs: Denies IV Drug Use: Denies Tattoos done unprofessionally: Denies FAMHX: Mother: Alive, hypertension, diabetes Father: , complications of gunshot wound Siblings: 7 sisters, 2 brothers Alive, well Children: Alive, well Unexpected deaths due to medical reasons: None. ROS: As noted in HPI, otherwise 11pt ROS of systems reviewed and remarkable only for chronic low back pain which she states is controlled. PE: GEN: 56 yo M, appears stated age. Well-nourished, well developed. No acute distress. Alert and oriented x 3. Pleasant, interactive. HEENT: Normocephalic, atraumatic. Pupils are equal, round, and reactive to light. Extraocular movements are intact. No nystagmus appreciated. Sclera are nonicteric. Conjunctiva without injection. Nose midline. Nasal turbinates without bogginess. EACs both patent BL. TMs both visualized and watkins with good cone of light, no bulging or erythema. No facial asymmetry. Moist mucous membranes. Dentition fair. Pharynx pink and moist, no cobblestoning. Neck supple , trachea midline. No lymphadenopathy or thyromegaly appreciated. CHEST: Regular rate and rhythm, +S1, +S2 LUNGS: Clear to auscultation bilaterally. No wheezes, rales, or rhonchi. Breathing appears symmetric and easy. Patient is speaking in full sentences. No accessory muscle use. ABD: Round, soft, non-tender, non-distended. +Bowel sounds throughout. No rebound or guarding. No costovertebral angle tenderness. EXT: Pulses 2+ bilaterally dorsalis pedis and radial. No lower extremity edema appreciated. SKIN: [place], dry, warm. Capillary refill <2sec. No rashes. NEURO: Alert and oriented x 3. Cranial nerves III-XII are intact. No focal deficits appreciated. He is currently ambulating without any assistive devices. EKG: pending. A&P: 56yoM admitted to [facility] for unspecified adjustment disorder 1. Psych. Plan per Psychiatry. Obtain baseline EKG to assure the safety of psychiatric medications as they can prolong the QT interval. 2. Nicotine dependence. Patch available. 3. Chronic low back pain. Follows with [facility] pain management, has appointment 01/18. Continue oxycodone 5/325 one tablet 3 times a day as needed. Flexeril 10 mg daily. Ibuprofen 600 mg 3 times a day as needed. 4. Follow up PCP on discharge. 5. Asthma. Continue albuterol 2 puffs every 4 hours as needed. 6. GERD. Continue Prilosec 40 mg daily. 7. Hypertension. Continue amlodipine/benazepril 2.5/10 tablet daily. 8. NIDDM. Controlled carbohydrate diet. Fingerstick blood sugar twice a day. Metformin 500 mg by mouth daily. 9. OAB. Continue oxybutynin 10 mg daily. 10. Hyperlipidemia. Continue Lipitor 80 mg daily. 11. Staff member Ed present throughout exam. Vital Signs Vital Signs Date Time Temp Pulse Resp B/P Pulse Ox O2 Delivery O2 Flow Rate FiO2 01/17/17 08:53 Room Air 01/17/17 08:51 121/78 01/17/17 08:51 75 01/17/17 06:11 97.7 20 01/16/17 19:24 97 Laboratory Data Labs 24H Laboratory Tests 2 01/16/17 15:54: Acetaminophen Level < 2.0L, Aspartate Amino Transf (AST/SGOT) 24, Alanine Aminotransferase (ALT/SGPT) 24, Alkaline Phosphatase 79, Total Bilirubin 0.5, Direct Bilirubin 0.1, Albumin 3.6, Albumin/Globulin Ratio 1.03, Anion Gap 6L, Calcium Level 8.8, Ethyl Alcohol Level < 0.003, Glomerular Filtration Rate > 60.0, Salicylates Level 2.5L, Thyroid Stimulating Hormone (TSH) 1.230, Total Protein 7.1 01/16/17 15:57: Urine Amphetamines Screen NEGATIVE, Urine Benzodiazepines Screen NEGATIVE, Urine Opiates Screen NEGATIVE, Urine Barbiturates Screen NEGATIVE, Urine Cannabinoids Screen NEGATIVE, Urine Cocaine Metabolite Screen NEGATIVE, Urine Methadone Screen NEGATIVE, Urine Phencyclidine Screen NEGATIVE CBC/BMP Laboratory Tests 01/16/17 15:54 Red Blood Count 4.36, Mean Corpuscular Volume 85.8, Mean Corpuscular Hemoglobin 28.1, Mean Corpuscular Hemoglobin Concent 32.7, Red Cell Distribution Width 14.2 Home Medications Scheduled (Amlodipine Besylate/Benaz 2.5-10 mg) 1 Cap Cap 1 CAP PO DAILY Atorvastatin Calcium (Atorvastatin Calcium) 80 Mg Tab 80 MG PO DAILY Cyclobenzaprine HCl (Cyclobenzaprine HCl) 10 Mg Tab 10 MG PO DAILY Ibuprofen (Ibuprofen) 600 Mg Tab 600 MG PO TID Metformin Hydrochloride (Metformin HCl) 500 Mg Tab 500 MG PO DAILY Omeprazole (Omeprazole) 40 Mg Cap 40 MG PO DAILY Oxybutynin Chloride (Ditropan Xl) 10 Mg Tab 10 MG PO DAILY Sertraline HCl (Sertraline HCl) 100 Mg Tab 100 MG PO QHS Scheduled PRN Albuterol Sulfate (Ventolin Hfa) 200 Puff/8 Gm Aers 2 PUFF INH Q4H PRN PRN SHORTNESS OF BREATH Oxycodone/Acetaminophen (Oxycodone/Acetaminophen 5-325 mg) 1 Tab Tab 1 TAB PO TID PRN PRN PAIN Allergies Coded Allergies: Pork (Verified Allergy, Intermediate, 01/16/17) Penicillin V (Verified Allergy, Mild, SWELLING, 12/15/16) Tramadol (Verified Allergy, Mild, MIGRAINES, 12/15/16) Mallory Gudino Jan 17, 2017 10:43
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
[2017-01-17 18:00] VITALS: BP 146/88
[2017-01-17] MEDS ORDERED: SERTRALINE 100 MG TAB PO SCH (21:00)
[2017-01-17] MEDS: traZODone 50 MG TAB PO PRN (21:35)
[2017-01-18 06:46] VITALS: BP 150/90
[2017-01-18] MEDS: metFORMIN (GLUCOPHAGE) 500 MG TAB PO SCH (08:05)
[2017-01-18] MEDS ORDERED: SERT-138 PO (08:31)
[2017-01-18] MEDS: OMEPRAZOLE 20 MG CAP PO SCH (08:48)
[2017-01-18 08:49] VITALS: BP 150/90
[2017-01-18] MEDS: oxyBUTYnin *DITROPAN XL* 5 MG TABCR PO SCH (08:49)
[2017-01-18] MEDS: BENAZEPRIL 5 MG TAB PO SCH (08:49)
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
--- NOTE | 2017-01-19 12:35 | ECGEPIP ---
Stationary ECG Study [facility] Test Date: 2017-01-17 Pat Name: DELL MCCANN Department: Room: [place] [address] Gender: M In Home Aide: BOB : 1960 Requested By: Mallory Gudino Order Number: [id number] Reading MD: Dlel Gutierrez Measurements Intervals [place] Rate: 72 P: 48 LA: 188 QRS: 21 QRSD: 90 T: 15 QT: 362 QTc: 399 Interpretive Statements SINUS RHYTHM Question right precordial lead placement Otherwise normal study Electronically Signed On 01-19-2017 12:35:26 EDT by Dell Gutierrez
== END 2017-01-18 12:00 | disposition home or self-care (01) | DRG 881 ==
LOC: M ED 16:19 → M ED INP 17:24 → M PSY 18:05
PROVIDERS: ADMIT Psychiatry & Neurology Psychiatry; ATTEND Psychiatry & Neurology Child & Adolescent Psychiatry
DX: F34.1 Dysthymic disorder (principal); Z79.899 Other long term (current) drug therapy; F17.200 Nicotine dependence, unspecified, uncomplicated; G40.909 Epilepsy, unspecified, not intractable, without status epilepticus; E11.9 Type 2 diabetes mellitus without complications; M19.90 Unspecified osteoarthritis, unspecified site; E78.5 Hyperlipidemia, unspecified; M54.5 Low back pain; I10 Essential (primary) hypertension

== ENCOUNTER 2017-01-16 15:28 | Outpatient (RCR) | payer MEDICARE, MEDICAID ==
[2017-01-16] MEDS ORDERED: AMLO2.5C PO ×2 (17:48→18:25)
[2017-01-16] MEDS ORDERED: OMEP40CA2 PO (17:48)
[2017-01-16] MEDS ORDERED: SERT50TA PO (17:48)
[2017-01-16] MEDS ORDERED: OXYC1TAB23 PO (17:48)
[2017-01-16] MEDS ORDERED: TYLE500T78 PO (17:48)
[2017-01-16] MEDS ORDERED: DITR1TAB PO (18:27)
[2017-01-16] MEDS ORDERED: CYCL10TA PO (18:27)
[2017-01-16] MEDS ORDERED: METF500T PO (18:27)
[2017-01-16] MEDS ORDERED: IBUP60TA PO (18:29)
[2017-01-16] MEDS ORDERED: SERT-138 PO (18:29)
[2017-01-16] MEDS ORDERED: ATOR1TAB18 PO (18:30)
[2017-01-18] MEDS ORDERED: SERT-138 PO (08:31)
== END 2017-02-05 ==
LOC: M PT 15:28
PROVIDERS: ATTEND Anesthesiology
DX: Z51.89 Encounter for other specified aftercare (principal); M54.5 Low back pain

== ENCOUNTER → 2017-01-19 | Outpatient (CLI) | payer MEDICARE, MEDICAID ==
[~2017-01-19] MED LIST changes: +AMLO2.5C PO; +ATOR1TAB18 PO; +DITR1TAB PO; +IBUP60TA PO; +METF500T PO; +OMEP40CA2 PO; +OXYC1TAB23 PO; +SERT-138 PO; +SERT50TA PO; +TYLE500T78 PO
--- NOTE | 2017-02-01 23:50 | ECWPNPC ---
PATIENT NAME: DELL MCCANN : 1960 GENDER: MALE VISIT DATE: 01/19/2017 DISCHARGE DATE: 01/19/17 09 VISIT LOCKED DATE TIME: PHYSICIAN: SATYA SLAUGHTER RESOURCE: SATYA SLAUGHTER HISTORY OF PRESENT ILLNESS HISTORY OF PRESENT ILLNESS: HERE FOR F/U AND MANAGEMENT OF CHRONIC LOW BACK PAIN AND BILAT. LEG PAIN.RATING PAIN VAS 4/10 .STARTED ON PERCOCET 5/325 LAST MONTH #30 FOR A ONE MONTH SUPPLY..DISCUSSED MEDICINE AND TREATMENT OPTIONS.TRAMADOL CAUSES MIGRAINES AND CURRENT TYLENOL 500MG BID INEFFECTIVE.DESCRIBES PAIN ACHING AND SORE.RATING PAIN VAS 7/10.WILL BE ATTENDING PT.DENIES ACTIVE SUICIDAL IDEATIONS.WAS HOSPITALIZED FOR MENTAL HEALTH ISSUES X2 DAYS AND WAS DISCHARGED YESTERDAY. PAIN THE PATIENT DESCRIBES THE PAIN... THE PATIENT DESCRIBES THE PAIN... THE PATIENT DESCRIBES THE PAIN... FALL RISK SCREENING: SCREENING :NO FALLS IN THE PAST YEAR CURRENT MEDICATIONS TAKING LANCET DEVICES - MISCELLANEOUS ICD:E11.9 _ FSBS TWICE DAILY TAKING LANCETS - MISCELLANEOUS ICD:E11.9 SUBCUTANEOUSLY FSBS TWICE DAILY TAKING SINGULAIR 10 MG TABLET 1 TABLET IN THE EVENING ORALLY ONCE A DAY, NOTES: 12-18-16 0900 TAKING AMLODIPINE BESY-BENAZEPRIL HCL 2.5-10 MG CAPSULE DIRECTED ORALLY ONCE DAILY, NOTES: 12-18-16-0900 TAKING BLOOD GLUCOSE TEST STRIP - STRIP ICD:E11.9 IN VITRO FSBS TWICE DAILY TAKING NEBULIZER - DEVICE DIRECTED J44.9 FOUR TIMES DAILY NEEDED, NOTES: 12-16-16 0800 TAKING OXYBUTYNIN CHLORIDE ER 10 MG TABLET EXTENDED RELEASE 24 HOUR 1 TABLET ORALLY ONCE A DAY, NOTES: 12-18-16=0900 TAKING BLOOD GLUCOSE METER - KIT MONITOR ICD:E11.9 FSBS TWICE DAILY TAKING BLOOD PRESSURE CUFF - MISCELLANEOUS DIRECTED _ DAILY TAKING BLOOD PRESSURE MONITOR - DEVICE 1 MONITOR _DX:I10 DAILY TAKING ALBUTEROL SULFATE (2.5 MG/3ML) 0.083% NEBULIZATION SOLUTION 3 ML INHALATION FOUR TIMES DAILY NEEDED, NOTES: 12-16-16 0900 TAKING NEBULIZER - DEVICE 1 DEVICE DX:J45.998 FOUR TIMES DAILY NEEDED TAKING FLONASE ALLERGY RELIEF 50 MCG/ACT SUSPENSION 1 SPRAY IN EACH NOSTRIL NASALLY ONCE A DAY, NOTES: 12-18-16899 TAKING PERCOCET 5-325 MG TABLET 1 TABLET NEEDED ORALLY Q8H PRN PAIN MDD3, NOTES: 12-18-162199 TAKING PRILOSEC 40 MG CAPSULE DELAYED RELEASE 1 CAPSULE ONCE A DAY ORALLY 30 DAY(S) , NOTES: 12-18-16899 TAKING CYCLOBENZAPRINE HCL 10 MG TABLET 1 TABLET ORALLY BEFORE BEDTIME, NOTES: 12-18-16899 TAKING IBUPROFEN 600 MG TABLET 1 TABLET ORALLY THREE TIMES A DAY TAKING ACETAMINOPHEN 500 MG TABLET 1 ORALLY BID TAKING SERTRALINE HCL 100 MG TABLET 1 TABLET ORALLY ONCE A DAY TAKING VENTOLIN HFA 108 (90 BASE) MCG/ACT AEROSOL SOLUTION 2 PUFFS NEEDED INHALATION EVERY 4 HRS PRN, NOTES: 12-16-16799 TAKING ATORVASTATIN CALCIUM 80 MG TABLET 1 TABLET ONCE A DAY ORALLY 30 DAY(S) TAKING METFORMIN HCL 500 MG TABLET 1 TABLET WITH MEALS DAILY ORALLY 30 DAY(S) NOT-TAKING TESSALON PERLES 100 MG CAPSULE 1 CAPSULE NEEDED ORALLY THREE TIMES A DAY, NOTES: 12-16-16899 NOT-TAKING PRILOSEC 20 MG CAPSULE DELAYED RELEASE 1 CAP ORALLY ONCE A DAY UNKNOWN NEBULIZER/TUBING/MOUTHPIECE - KIT MEDICATION LIST REVIEWED AND RECONCILED WITH THE PATIENT PAST MEDICAL HISTORY HYPERTENSION DIABETES 2 HYPERLIPIDEMIA CHRONIC BACK PAIN CHRONIC BILATERAL KNEE PAIN - "ARTHRITIS" DEPRESSION WITH SUICIDE ATTEMPT IN 2011 - [facility] STAY FOR 1 MONTH ALLERGIES PENICILLIN V POTASSIUM: SWELLING: ALLERGY TRAMADOL HCL: MIGRAINES: SIDE EFFECTS SOCIAL HISTORY GENERAL: PAIN CLINIC PFS, CLERGY, PUBLIC HEALTH REFERRALS CLERGY REFERRAL NEEDED?NO WAS THE PROVIDER NOTIFIED OF ANY PERTINENT INFO?NO PFS REFERRAL NEEDED?NO PUBLIC HEALTH REFERRAL NEEDED?NO PATIENT: ____. REVIEW OF SYSTEMS CONSTITUTIONAL: ANY CHANGE IN YOUR MEDICAL CONDITION? NO . CHILLS NO . FEVER NO . INFECTION: DO YOU HAVE NEW INFECTIONS? NO . DO YOU HAVE HISTORY OF MRSA? NO . MUSCULOSKELETAL: ANY NEW PATTERNS OF PAIN OR NUMBNESS? NO . GASTROENTEROLOGY: ANY NEW CHANGE IN BOWEL CONTROL? NO . GENITOURINARY: ANY NEW CHANGE IN BLADDER CONTROL? NO . IS THERE A CHANCE YOU COULD BE ? NO . HEMATOLOGY/LYMPH: DO YOU TAKE ANY BLOOD THINNERS? (FOR EXAMPLE- COUMADIN, PLAVIX, AGGRENOX, PLATEL, PRADAXA, OR XARELTO) NO . WHEN WAS YOUR LAST DOSE? DATE: TIME: . NEUROLOGY: HAVE YOU FALLEN IN THE PAST 6 MONTHS? NO . ANY NEW EXTREMITY NUMBNESS OR WEAKNESS? NO . CARDIOLOGY: DO YOU HAVE A PACEMAKER OR DEFIBRILLATOR? NO . RESPIRATORY: HAVE YOU BEEN SICK IN THE PAST WEEK? NO . FEVER NO . FLU LIKE SYMPTOMS? NO . COUGH NO . INTEGUMENTARY: DO YOU HAVE ANY RASHES OR OPEN SORES? NO . ALLERGIC/IMMUNO: ARE YOU ALLERGIC TO SHELLFISH OR IV DYE? NO . ANY NEW ALLERGIES? NO . PSYCHIATRIC: DO YOU HAVE THOUGHTS OF HURTING YOURSELF OR SOMEONE ELSE? NO . ARE YOU ABUSED, NEGLECTED, OR IN AN UNSAFE ENVIRONMENT? NO . ENDOCRINOLOGY: ARE YOU DIABETIC? NO . OTHER: DO YOU NEED ANY PRESCRIPTIONS? YES . IF YES, PLEASE LIST: ____ . ANY NEW PROBLEMS WITH YOUR MEDICATIONS? NO . WHEN DID YOU LAST EAT? ____ . WHEN DID YOU LAST DRINK? ____ . WHAT DID YOU LAST DRINK? ____ . NAME OF PERSON DRIVING YOU HOME? ____ . DO YOU HAVE ANY OTHER QUESTIONS OR CONCERNS NO . REVIEWED BY: PROVIDER: SATYA HERNÁNDEZ . VITAL SIGNS WT 209 LBS, HT 71 IN, BMI 29.15 INDEX, BP 163/74 MM HG, HR 97 /MIN, RR 18 /MIN, TEMP 97.3 F, OXYGEN SAT % 97, NA INITIALS 0908, REVIEWED BY: KG. EXAMINATION GENERAL EXAMINATION: HEENT:HEAD:, NORMOCEPHALIC, EYES:, EYES NORMAL, NOSE:, NOSE CLEAR, THROAT: NORMAL. LUNGS:LUNG SOUNDS ARE CLEAR. HEART:HEART RATE REGULAR. ABDOMEN:SOFT AND NOT TENDER, NON-DISTENDED. MUSCULOSKELETAL:*. LUMBAR SACRAL SPINEMUSCLE STRENGTH TESTING 5/5 BILATERAL LOWER EXTREMITIES. PALPATION: POSITIVE FOR PAIN OVER L/S SPINE. POSITIVE FOR PAIN OVER L/S PARSPINALS. THORACIC SPINENEGATIVE FOR PAIN WITH PALPATION OF THORACIC SPINE. NEGATIVE FOR PAIN WITH PALPATION OF THORACIC PARASPINAL. CERVICALNEGATIVE FOR PAIN WITH PALPATION OF CERVICAL SPINE. NEGATIVE FOR PAIN WITH PALPATION OF CERVICAL PARASPINALS. NEGATIVE FOR PAIN WITH PALPATION OF TRAPEZIUS BILAT. SKIN:NORMAL, NO RASH. NEUROLOGIC EXAM:ALERT AND ORIENTED X 3, DTRS 1-2+ IN ALL 4 EXTREMITIES, DENIES UPPER EXTREMETIES SENSORY LOSS, DENIES LOWER EXTREMETIES SENSORY LOSS. DIAGNOSTIC:MRI L/S [id number]-REVIEWED WITH PATIENT.. ASSESSMENTS LUMBAR FACET ARTHROPATHY - M12.88 (PRIMARY) CHRONIC PRESCRIPTION OPIATE USE - Z79.891 TREATMENT LUMBAR FACET ARTHROPATHY CONTINUE CYCLOBENZAPRINE HCL TABLET, 10 MG, 1 TABLET, ORALLY, BEFORE BEDTIME, NOTES: 12-18-16 0900 CONTINUE IBUPROFEN TABLET, 600 MG, 1 TABLET, ORALLY, THREE TIMES A DAY CONTINUE ACETAMINOPHEN TABLET, 500 MG, 1, ORALLY, BID REFILL PERCOCET TABLET, 5-325 MG, 1 TABLET NEEDED, ORALLY, Q8H PRN PAIN MDD3, 30 DAY(S), 90, REFILLS 0, NOTES: 12-18-16 2200 NOTES: ISTOP REGISTRY REVIEWED AND DEMNOSTRATES COMPLLIANCE. BRINGS IN MEDICATIONS WHICH IS APPROPRIATE FOR WHAT WAS DISPENSED. RECENT URINE TOXICOLOGY REVIEWED. NO UNAUTHORIZED MEDICATIONS. NO ILLICIT SUBSTANCES AND PRESCRIBED MEDICATIONS WERE PRESENT. , RISKS AND BENEFITS OF NARCOTIC/OPIOD MEDICATIONS WERE REVIEWED WITH PATIENT - THIS INCLUDES BUT IS NOT LIMITED TO RISK OF DEPENDANCE/DEVELOPMENT OF ADDICTION, MOOD DISTURBANCE AND DEPRESSION, OSTEOPOROSIS, HORMONAL AND LABIDAL CHANGES, RESPIRATORY DEPRESSION AND . PATIENT IS ADVISED NOT TO DRIVE WHILE ON THESE MEDICATIONS. PROCEDURE CODES FA211 ESTABILISHED PATIENT [facility] FACILITY CHARGE G8730 PAIN ASSESS POS TOOL F/U PLAN DOC G8427 DOC MEDS VERIFIED W/PT OR RE DISPOSITION & COMMUNICATION FOLLOW UP 3 WEEKS ELECTRONICALLY SIGNED BY EDGAR RAMIREZ ON 02/01/2017 AT 03:15 PM EDT DISCLAIMER : THIS IS A VISIT SUMMARY EXTRACTED FROM THE [employer] CHART. IT IS NOT A COPY OF THE [employer] PROGRESS NOTE. SHELBY
== END ==
LOC: M PAIN 09:00
PROVIDERS: ATTEND Nurse Practitioner Family
DX: G89.29 Other chronic pain (principal); M12.88 Other specific arthropathies, not elsewhere classified, other specified site; M54.5 Low back pain; M79.604 Pain in right leg; M79.605 Pain in left leg; I10 Essential (primary) hypertension; E11.9 Type 2 diabetes mellitus without complications; E78.5 Hyperlipidemia, unspecified; Z79.1 Long term (current) use of non-steroidal anti-inflammatories (NSAID); F32.9 Major depressive disorder, single episode, unspecified; Z91.5 Personal history of self-harm; Z79.891 Long term (current) use of opiate analgesic; Z79.84 Long term (current) use of oral hypoglycemic drugs; Z79.899 Other long term (current) drug therapy; Z88.0 Allergy status to penicillin; Z88.5 Allergy status to narcotic agent

== ENCOUNTER 2017-01-28 04:19 | Emergency (ER) | payer MEDICARE, MEDICAID ==
[2017-01-28 05:17] VITALS: BP 152/88
== END 2017-01-28 05:18 | disposition home or self-care (01) ==
LOC: M ED 05:09
DX: F41.8 Other specified anxiety disorders (principal)

== ENCOUNTER → 2017-02-27 | Outpatient (CLI) | payer MEDICARE, MEDICAID | LOC: M OUTALCOH 07:40 | PROVIDERS: ATTEND Psychiatry & Neurology Psychiatry | DX: Z03.89 Encounter for observation for other suspected diseases and conditions ruled out (principal); F10.10 Alcohol abuse, uncomplicated; Z72.0 Tobacco use ==

== ENCOUNTER → 2017-02-28 | Outpatient (CLI) | payer MEDICARE, MEDICAID ==
--- NOTE | 2017-03-21 01:48 | ECWPNPC ---
PATIENT NAME: DELL MCCANN : 1960 GENDER: MALE VISIT DATE: 02/28/2017 DISCHARGE DATE: 02/28/17 1102 VISIT LOCKED DATE TIME: PHYSICIAN: SATYA SLAUGHTER RESOURCE: SATYA SLAUGHTER REASON FOR APPOINTMENT 1. BACK HISTORY OF PRESENT ILLNESS HISTORY OF PRESENT ILLNESS: HERE FOR F/U AND MANAGEMENT OF CHRONIC LOW BACK PAIN AND BILAT. LEG PAIN.RATING PAIN VAS 4/10 ..DISCUSSED MEDICINE AND TREATMENT OPTIONS.TRAMADOL CAUSES MIGRAINES AND CURRENT TYLENOL 500MG BID INEFFECTIVE.DESCRIBES PAIN ACHING AND SORE.USING PERCOCET 5/325 ONE TABLET PERIODICALLY FOR SEVERE PAIN WITH GOOD EFFECT.BRINGS IN MEDICATION WHICH IS ACCURATE FOR WHAT WAS DISPENSED.DENIES ADVERSE SIDE EFFECTS. PAIN THE PATIENT DESCRIBES THE PAIN... THE PATIENT DESCRIBES THE PAIN... THE PATIENT DESCRIBES THE PAIN... THE PATIENT DESCRIBES THE PAIN... FALL RISK SCREENING: SCREENING :NO FALLS IN THE PAST YEAR CURRENT MEDICATIONS TAKING LANCET DEVICES - MISCELLANEOUS ICD:E11.9 _ FSBS TWICE DAILY TAKING LANCETS - MISCELLANEOUS ICD:E11.9 SUBCUTANEOUSLY FSBS TWICE DAILY TAKING SINGULAIR 10 MG TABLET 1 TABLET IN THE EVENING ORALLY ONCE A DAY, NOTES: 12-18-16 0900 TAKING AMLODIPINE BESY-BENAZEPRIL HCL 2.5-10 MG CAPSULE DIRECTED ORALLY ONCE DAILY, NOTES: 12-18-16-0900 TAKING BLOOD GLUCOSE TEST STRIP - STRIP ICD:E11.9 IN VITRO FSBS TWICE DAILY TAKING NEBULIZER - DEVICE DIRECTED J44.9 FOUR TIMES DAILY NEEDED, NOTES: 12-16-16 0800 TAKING OXYBUTYNIN CHLORIDE ER 10 MG TABLET EXTENDED RELEASE 24 HOUR 1 TABLET ORALLY ONCE A DAY, NOTES: 12-18-16=0900 TAKING BLOOD GLUCOSE METER - KIT MONITOR ICD:E11.9 FSBS TWICE DAILY TAKING BLOOD PRESSURE CUFF - MISCELLANEOUS DIRECTED _ DAILY TAKING BLOOD PRESSURE MONITOR - DEVICE 1 MONITOR _DX:I10 DAILY TAKING ALBUTEROL SULFATE (2.5 MG/3ML) 0.083% NEBULIZATION SOLUTION 3 ML INHALATION FOUR TIMES DAILY NEEDED, NOTES: 12-16-16 0900 TAKING NEBULIZER - DEVICE 1 DEVICE DX:J45.998 FOUR TIMES DAILY NEEDED TAKING FLONASE ALLERGY RELIEF 50 MCG/ACT SUSPENSION 1 SPRAY IN EACH NOSTRIL NASALLY ONCE A DAY, NOTES: 12-18-16899 TAKING PRILOSEC 40 MG CAPSULE DELAYED RELEASE 1 CAPSULE ONCE A DAY ORALLY 30 DAY(S) , NOTES: 12-18-16899 TAKING SERTRALINE HCL 100 MG TABLET 1 1/2 TABS ORALLY ONCE A DAY TAKING ATORVASTATIN CALCIUM 80 MG TABLET 1 TABLET ONCE A DAY ORALLY 30 DAY(S) TAKING METFORMIN HCL 500 MG TABLET 1 TABLET WITH MEALS DAILY ORALLY 30 DAY(S) TAKING CYCLOBENZAPRINE HCL 10 MG TABLET 1 TABLET ORALLY BEFORE BEDTIME, NOTES: 12-18-16899 TAKING IBUPROFEN 600 MG TABLET 1 TABLET ORALLY THREE TIMES A DAY TAKING ACETAMINOPHEN 500 MG TABLET 1 ORALLY BID TAKING PERCOCET 5-325 MG TABLET 1 TABLET NEEDED ORALLY Q8H PRN PAIN MDD3, NOTES: 12-18-162199 TAKING HYDROXYZINE HCL 50 MG TABLET 1 TABLET NEEDED ORALLY AT BED TIME TAKING VENTOLIN HFA 108 (90 BASE) MCG/ACT AEROSOL SOLUTION 2 PUFFS NEEDED INHALATION EVERY 4 HRS PRN, NOTES: 12-16-16799 TAKING CLOBETASOL PROPIONATE 0.05 % SHAMPOO 1 APPLICATION TO SCALP EXTERNALLY TWICE DAILY TAKING CLOBETASOL PROPIONATE 0.05 % LOTION 1 APPLICATION TO AFFECTED AREA EXTERNALLY TWICE A DAY TAKING ZYRTEC 10 MG TABLET 1 TABLET ORALLY ONCE A DAY TAKING BENADRYL ALLERGY 25 MG CAPSULE 1 CAPSULE NEEDED ORALLY 3 TIMES A DAY NEEDED NOT-TAKING TESSALON PERLES 100 MG CAPSULE 1 CAPSULE NEEDED ORALLY THREE TIMES A DAY, NOTES: 12-16-16899 NOT-TAKING PRILOSEC 20 MG CAPSULE DELAYED RELEASE 1 CAP ORALLY ONCE A DAY UNKNOWN NEBULIZER/TUBING/MOUTHPIECE - KIT MEDICATION LIST REVIEWED AND RECONCILED WITH THE PATIENT PAST MEDICAL HISTORY HYPERTENSION DIABETES 2 HYPERLIPIDEMIA CHRONIC BACK PAIN CHRONIC BILATERAL KNEE PAIN - "ARTHRITIS" DEPRESSION WITH SUICIDE ATTEMPT IN 2011 - [facility] STAY FOR 1 MONTH ALLERGIES PENICILLIN V POTASSIUM: SWELLING: ALLERGY TRAMADOL HCL: MIGRAINES: SIDE EFFECTS SURGICAL HISTORY STERIOD INJECTIONS LOWER BACK 2013 HOSPITALIZATION/MAJOR DIAGNOSTIC PROCEDURE FRACTURED RIBS 1977 REVIEW OF SYSTEMS CONSTITUTIONAL: ANY CHANGE IN YOUR MEDICAL CONDITION? NO. PT STATES HE FEELS THE MEDICATION REGIMEN IS CONTROLLING PAIN WELL, ONLY TAKES MEDS WHEN PAIN ESCALATES. . CHILLS NO . FEVER NO . INFECTION: DO YOU HAVE NEW INFECTIONS? NO . DO YOU HAVE HISTORY OF MRSA? NO . MUSCULOSKELETAL: ANY NEW PATTERNS OF PAIN OR NUMBNESS? NO . GASTROENTEROLOGY: ANY NEW CHANGE IN BOWEL CONTROL? NO . GENITOURINARY: ANY NEW CHANGE IN BLADDER CONTROL? NO . IS THERE A CHANCE YOU COULD BE ? NO . HEMATOLOGY/LYMPH: DO YOU TAKE ANY BLOOD THINNERS? (FOR EXAMPLE- COUMADIN, PLAVIX, AGGRENOX, PLATEL, PRADAXA, OR XARELTO) NO . WHEN WAS YOUR LAST DOSE? DATE: TIME: . NEUROLOGY: HAVE YOU FALLEN IN THE PAST 6 MONTHS? NO . ANY NEW EXTREMITY NUMBNESS OR WEAKNESS? NO . CARDIOLOGY: DO YOU HAVE A PACEMAKER OR DEFIBRILLATOR? NO . RESPIRATORY: HAVE YOU BEEN SICK IN THE PAST WEEK? NO . FEVER NO . FLU LIKE SYMPTOMS? NO . COUGH NO . INTEGUMENTARY: DO YOU HAVE ANY RASHES OR OPEN SORES? NO . ALLERGIC/IMMUNO: ARE YOU ALLERGIC TO SHELLFISH OR IV DYE? NO . ANY NEW ALLERGIES? NO . PSYCHIATRIC: DO YOU HAVE THOUGHTS OF HURTING YOURSELF OR SOMEONE ELSE? NO . ARE YOU ABUSED, NEGLECTED, OR IN AN UNSAFE ENVIRONMENT? NO . ENDOCRINOLOGY: ARE YOU DIABETIC? YES . OTHER: DO YOU NEED ANY PRESCRIPTIONS? YES, PERCOSET . IF YES, PLEASE LIST: ____ . ANY NEW PROBLEMS WITH YOUR MEDICATIONS? NO . WHEN DID YOU LAST EAT? ____ . WHEN DID YOU LAST DRINK? ____ . WHAT DID YOU LAST DRINK? ____ . NAME OF PERSON DRIVING YOU HOME? ____ . DO YOU HAVE ANY OTHER QUESTIONS OR CONCERNS NO . REVIEWED BY: PROVIDER: SATYA HERNÁNDEZ . VITAL SIGNS WT 212.2 LBS, HT 71 IN, BMI 29.59 INDEX, BP 143/90 MM HG, HR 91 /MIN, RR 18 /MIN, TEMP 97.9 F, OXYGEN SAT % 97%, NA INITIALS SC 10:16. EXAMINATION GENERAL EXAMINATION: GENERAL APPEARANCE:COMFORTABLE. PSYCHAFFECT NORMAL. LUNGS:LUNG MCCANN ARE CLEAR TO AUSCULTATION BILATERALLY. GOOD MOVEMENT OF AIR. HEART:S1, S2 IN A REGULAR RATE AND RHYTHM. NO SIGNIFICANT MURMURS, RUBS OR GALLOPS NOTED. LUMBAR SPINE/LOWER BACK: PALPATION:PARASPINAL TENDERNESS, VERTEBRAL SPINE TENDERNESS. MOTOR SYSTEM:5/5 BLE. ASSESSMENTS LUMBAR FACET ARTHROPATHY - M12.88 (PRIMARY) CHRONIC PRESCRIPTION OPIATE USE - Z79.891 TREATMENT LUMBAR FACET ARTHROPATHY REFILL PERCOCET TABLET, 5-325 MG, 1 TABLET NEEDED, ORALLY, Q8H PRN PAIN MDD3, 30 DAY(S), 90, REFILLS 0, NOTES: 12-18-16 2200 REFILL IBUPROFEN TABLET, 600 MG, 1 TABLET, ORALLY, THREE TIMES A DAY NOTES: ISTOP REGISTRY REVIEWED AND DEMNOSTRATES COMPLLIANCE. BRINGS IN MEDICATIONS WHICH IS APPROPRIATE FOR WHAT WAS DISPENSED. RECENT URINE TOXICOLOGY REVIEWED. NO UNAUTHORIZED MEDICATIONS. NO ILLICIT SUBSTANCES AND PRESCRIBED MEDICATIONS WERE PRESENT. , RISKS AND BENEFITS OF NARCOTIC/OPIOD MEDICATIONS WERE REVIEWED WITH PATIENT - THIS INCLUDES BUT IS NOT LIMITED TO RISK OF DEPENDANCE/DEVELOPMENT OF ADDICTION, MOOD DISTURBANCE AND DEPRESSION, OSTEOPOROSIS, HORMONAL AND LABIDAL CHANGES, RESPIRATORY DEPRESSION AND . PATIENT IS ADVISED NOT TO DRIVE WHILE ON THESE MEDICATIONS. PROCEDURE CODES FA211 ESTABILISHED PATIENT [facility] FACILITY CHARGE G8730 PAIN ASSESS POS TOOL F/U PLAN DOC G8427 DOC MEDS VERIFIED W/PT OR RE DISPOSITION & COMMUNICATION FOLLOW UP 4 WEEKS ELECTRONICALLY SIGNED BY EDGAR RAMIREZ ON 03/20/2017 AT 05:06 PM EDT DISCLAIMER : THIS IS A VISIT SUMMARY EXTRACTED FROM THE [employer] CHART. IT IS NOT A COPY OF THE [employer] PROGRESS NOTE. SHELBY
== END ==
LOC: M PAIN 08:40
PROVIDERS: ATTEND Nurse Practitioner Family
DX: G89.29 Other chronic pain (principal); M12.88 Other specific arthropathies, not elsewhere classified, other specified site; M54.5 Low back pain; I10 Essential (primary) hypertension; E11.9 Type 2 diabetes mellitus without complications; E78.5 Hyperlipidemia, unspecified; F32.9 Major depressive disorder, single episode, unspecified; Z88.0 Allergy status to penicillin; Z88.5 Allergy status to narcotic agent; Z79.84 Long term (current) use of oral hypoglycemic drugs; Z79.1 Long term (current) use of non-steroidal anti-inflammatories (NSAID); Z79.891 Long term (current) use of opiate analgesic; Z79.899 Other long term (current) drug therapy; Z91.5 Personal history of self-harm

== ENCOUNTER → 2017-03-28 | Outpatient (CLI) | payer MEDICARE, MEDICAID ==
[~2017-03-28] MED LIST changes: -ATOR1TAB18; -ATOR1TAB18 PO; +ATOR80TA59; +ATOR80TA59 PO; +IBUP1TAB6 PO; -IBUP60TA PO; +IBUP80TA PO; +MAPA500C PO; -METF500T; -METF500T PO; +METF500T13; +METF500T13 PO; +NEXI40GR; +PERC10TA26; +REGL10TA6 PO; +SERT-155 PO; +SUCR1SUS PO
--- NOTE | 2017-03-29 00:52 | ECWPNPC ---
PATIENT NAME: DELL MCCANN : 1960 GENDER: MALE VISIT DATE: 03/28/2017 DISCHARGE DATE: 03/28/17 1504 VISIT LOCKED DATE TIME: PHYSICIAN: SATYA SLAUGHTER RESOURCE: SATYA SLAUGHTER REASON FOR APPOINTMENT 1. FOLLOWUP HISTORY OF PRESENT ILLNESS HISTORY OF PRESENT ILLNESS: HERE FOR F/U AND MANAGEMENT OF CHRONIC LOW BACK PAIN AND BILAT. LEG PAIN.RATING PAIN VAS 4/10 .REPORTS FALL TEN DAYS AGO AND HAS HAD NEW ONSET LEFT LOW BACK AND LEG PAIN..DISCUSSED MEDICINE AND TREATMENT OPTIONS.TRAMADOL CAUSES MIGRAINES AND CURRENT TYLENOL 500MG BID INEFFECTIVE.DESCRIBES PAIN ACHING AND SORE.USING PERCOCET 5/325 ONE TABLET PERIODICALLY FOR SEVERE PAIN WITH GOOD EFFECT.BRINGS IN MEDICATION WHICH IS ACCURATE FOR WHAT WAS DISPENSED.DENIES ADVERSE SIDE EFFECTS. PAIN THE PATIENT DESCRIBES THE PAIN... THE PATIENT DESCRIBES THE PAIN... THE PATIENT DESCRIBES THE PAIN... THE PATIENT DESCRIBES THE PAIN... THE PATIENT DESCRIBES THE PAIN... FALL RISK SCREENING: SCREENING :NO FALLS IN THE PAST YEAR CURRENT MEDICATIONS TAKING PERCOCET 5-325 MG TABLET 1 TABLET NEEDED ORALLY Q8H PRN PAIN MDD3 TAKING IBUPROFEN 600 MG TABLET 1 TABLET ORALLY THREE TIMES A DAY TAKING LANCET DEVICES - MISCELLANEOUS ICD:E11.9 _ FSBS TWICE DAILY TAKING LANCETS - MISCELLANEOUS ICD:E11.9 SUBCUTANEOUSLY FSBS TWICE DAILY TAKING SINGULAIR 10 MG TABLET 1 TABLET IN THE EVENING ORALLY ONCE A DAY TAKING AMLODIPINE BESY-BENAZEPRIL HCL 2.5-10 MG CAPSULE DIRECTED ORALLY ONCE DAILY TAKING BLOOD GLUCOSE TEST STRIP - STRIP ICD:E11.9 IN VITRO FSBS TWICE DAILY TAKING NEBULIZER - DEVICE DIRECTED J44.9 FOUR TIMES DAILY NEEDED TAKING OXYBUTYNIN CHLORIDE ER 10 MG TABLET EXTENDED RELEASE 24 HOUR 1 TABLET ORALLY ONCE A DAY TAKING BLOOD GLUCOSE METER - KIT MONITOR ICD:E11.9 FSBS TWICE DAILY TAKING BLOOD PRESSURE CUFF - MISCELLANEOUS DIRECTED _ DAILY TAKING BLOOD PRESSURE MONITOR - DEVICE 1 MONITOR _DX:I10 DAILY TAKING ALBUTEROL SULFATE (2.5 MG/3ML) 0.083% NEBULIZATION SOLUTION 3 ML INHALATION FOUR TIMES DAILY NEEDED TAKING NEBULIZER - DEVICE 1 DEVICE DX:J45.998 FOUR TIMES DAILY NEEDED TAKING FLONASE ALLERGY RELIEF 50 MCG/ACT SUSPENSION 1 SPRAY IN EACH NOSTRIL NASALLY ONCE A DAY TAKING SERTRALINE HCL 100 MG TABLET 1 1/2 TABS ORALLY ONCE A DAY TAKING ATORVASTATIN CALCIUM 80 MG TABLET 1 TABLET ONCE A DAY ORALLY 30 DAY(S) TAKING METFORMIN HCL 500 MG TABLET 1 TABLET WITH MEALS DAILY ORALLY 30 DAY(S) TAKING CYCLOBENZAPRINE HCL 10 MG TABLET 1 TABLET ORALLY BEFORE BEDTIME TAKING ACETAMINOPHEN 500 MG TABLET 1 ORALLY BID TAKING HYDROXYZINE HCL 50 MG TABLET 1 TABLET NEEDED ORALLY AT BED TIME TAKING VENTOLIN HFA 108 (90 BASE) MCG/ACT AEROSOL SOLUTION 2 PUFFS NEEDED INHALATION EVERY 4 HRS PRN TAKING CLOBETASOL PROPIONATE 0.05 % SHAMPOO 1 APPLICATION TO SCALP EXTERNALLY TWICE DAILY TAKING CLOBETASOL PROPIONATE 0.05 % LOTION 1 APPLICATION TO AFFECTED AREA EXTERNALLY TWICE A DAY TAKING BENADRYL ALLERGY 25 MG CAPSULE 1 CAPSULE NEEDED ORALLY 3 TIMES A DAY NEEDED TAKING PRILOSEC 20 MG CAPSULE DELAYED RELEASE 1 CAP ORALLY ONCE A DAY TAKING NEBULIZER/TUBING/MOUTHPIECE - KIT NOT-TAKING PRILOSEC 40 MG CAPSULE DELAYED RELEASE 1 CAPSULE ONCE A DAY ORALLY 30 DAY(S) NOT-TAKING ZYRTEC 10 MG TABLET 1 TABLET ORALLY ONCE A DAY NOT-TAKING TESSALON PERLES 100 MG CAPSULE 1 CAPSULE NEEDED ORALLY THREE TIMES A DAY, NOTES: 12-16-16 0900 MEDICATION LIST REVIEWED AND RECONCILED WITH THE PATIENT PAST MEDICAL HISTORY HYPERTENSION DIABETES 2 HYPERLIPIDEMIA CHRONIC BACK PAIN CHRONIC BILATERAL KNEE PAIN - "ARTHRITIS" DEPRESSION WITH SUICIDE ATTEMPT IN 2011 - [facility] STAY FOR 1 MONTH ALLERGIES PENICILLIN V POTASSIUM: SWELLING: ALLERGY TRAMADOL HCL: MIGRAINES: SIDE EFFECTS PORK: FACIAL SWELLING: ALLERGY HAIR DYE: FACIAL SWELLING AND HEAD SORES: ALLERGY SOCIAL HISTORY GENERAL: TOBACCO USE ARE YOU A:CURRENT SMOKER HOW MANY CIGARETTES A DAY DO YOU SMOKE?5 OR LESS HOW SOON AFTER YOU WAKE UP DO YOU SMOKE YOUR FIRST CIGARETTE?31-60 MIN HOW OFTEN DO YOU SMOKE CIGARETTES?EVERY DAY PATIENT COUNSELED ON THE DANGERS OF TOBACCO USE AND URGED TO QUIT:01/02/2017 ARE YOU INTERESTED IN QUITTING?THINKING ABOUT QUITTING PREVIOUS QUIT ATTEMPTS?NO. COUNSELED THE PATIENT ON SMOKING CESSATION, EDUCATION [id number]/27/[id number] BMI CARE GOAL FOLLOW-UP ABOVE NORMAL BMI FOLLOW-UPLIFESTYLE EDUCATION REGARDING DIET ALCOHOL SCREENING DID YOU HAVE A DRINK CONTAINING ALCOHOL IN THE PAST YEAR?NO POINTS0 INTERPRETATIONNEGATIVE RECREATIONAL DRUG USE DRUG USE?NO CAFFEINE CAFFEINE USE?YES OCCUPATION: UNEMPLOYED. DIET: REGULAR. EXERCISE: NO REGULAR EXERCISE. MARITAL STATUS: . OTHERS AT HOME: NONE. PETS: NONE. WORSHIP NO ANABAPTIST BELIEFS THAT WOULD IMPACT HEALTH CARE. LANGUAGE MONGOLIAN. 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 0. PAIN CLINIC PFS, CLERGY, PUBLIC HEALTH REFERRALS PFS REFERRAL NEEDED?NO CLERGY REFERRAL NEEDED?NO PUBLIC HEALTH REFERRAL NEEDED?NO HAS THE PATIENT BEEN EDUCATED REGARDING HIS/HER PLAN OF CARE?YES HAS THE PATIENT BEEN EDUCATED REGARDING PAIN, THE RISK FOR PAIN, THE IMPORTANCE OF EFFECTIVE PAIN MANAGEMENT, AND THE PAIN ASSESSMENT PROCESS?YES REVIEW OF SYSTEMS CONSTITUTIONAL: ANY CHANGE IN YOUR MEDICAL CONDITION? NO . CHILLS NO . FEVER NO . INFECTION: DO YOU HAVE NEW INFECTIONS? NO . DO YOU HAVE HISTORY OF MRSA? NO . MUSCULOSKELETAL: ANY NEW PATTERNS OF PAIN OR NUMBNESS? YES, PAIN IS GOING DOWN LEFT LEG TO CALF AND NOTICED THIS PAIN 2 DAYS AFTER FALLING . GASTROENTEROLOGY: ANY NEW CHANGE IN BOWEL CONTROL? NO . GENITOURINARY: ANY NEW CHANGE IN BLADDER CONTROL? NO . IS THERE A CHANCE YOU COULD BE ? NO . HEMATOLOGY/LYMPH: DO YOU TAKE ANY BLOOD THINNERS? (FOR EXAMPLE- COUMADIN, PLAVIX, AGGRENOX, PLATEL, PRADAXA, OR XARELTO) NO . WHEN WAS YOUR LAST DOSE? DATE: TIME: . NEUROLOGY: HAVE YOU FALLEN IN THE PAST 6 MONTHS? YES . ANY NEW EXTREMITY NUMBNESS OR WEAKNESS? NO . CARDIOLOGY: DO YOU HAVE A PACEMAKER OR DEFIBRILLATOR? NO . RESPIRATORY: HAVE YOU BEEN SICK IN THE PAST WEEK? NO . FEVER NO . FLU LIKE SYMPTOMS? NO . COUGH NO . INTEGUMENTARY: DO YOU HAVE ANY RASHES OR OPEN SORES? NO . ALLERGIC/IMMUNO: ARE YOU ALLERGIC TO SHELLFISH OR IV DYE? NO . ANY NEW ALLERGIES? NO . PSYCHIATRIC: DO YOU HAVE THOUGHTS OF HURTING YOURSELF OR SOMEONE ELSE? NO . ARE YOU ABUSED, NEGLECTED, OR IN AN UNSAFE ENVIRONMENT? NO . ENDOCRINOLOGY: ARE YOU DIABETIC? YES . OTHER: DO YOU NEED ANY PRESCRIPTIONS? NO . IF YES, PLEASE LIST: ____ . ANY NEW PROBLEMS WITH YOUR MEDICATIONS? NO . WHEN DID YOU LAST EAT? ____ . WHEN DID YOU LAST DRINK? ____ . WHAT DID YOU LAST DRINK? ____ . NAME OF PERSON DRIVING YOU HOME? ____ . DO YOU HAVE ANY OTHER QUESTIONS OR CONCERNS NO . REVIEWED BY: PROVIDER: SATYA HERNÁNDEZ . VITAL SIGNS WT 214.8 LBS, HT 71 IN, BMI 29.96 INDEX, BP 147/97 MM HG, HR 82 /MIN, RR 20 /MIN, TEMP 97.5 F, OXYGEN SAT % 99%, NA INITIALS SC 14:18, REVIEWED BY: CS. EXAMINATION GENERAL EXAMINATION: GENERAL APPEARANCE:COMFORTABLE. PSYCHAFFECT NORMAL. LUNGS:LUNG MCCANN ARE CLEAR TO AUSCULTATION BILATERALLY. GOOD MOVEMENT OF AIR. HEART:S1, S2 IN A REGULAR RATE AND RHYTHM. NO SIGNIFICANT MURMURS, RUBS OR GALLOPS NOTED. LUMBAR SPINE/LOWER BACK: PALPATION:PARASPINAL TENDERNESS, VERTEBRAL SPINE TENDERNESS.SPECIFIC POINT TENDERNESS OVER LEFT SIJ.. MOTOR SYSTEM:5/5 BLE. ASSESSMENTS LUMBAR FACET ARTHROPATHY - M12.88 (PRIMARY) CHRONIC PRESCRIPTION OPIATE USE - Z79.891 SACROILIAC JOINT PAIN - M53.3 TREATMENT LUMBAR FACET ARTHROPATHY CONTINUE IBUPROFEN TABLET, 600 MG, 1 TABLET, ORALLY, THREE TIMES A DAY REFILL PERCOCET TABLET, 5-325 MG, 1 TABLET NEEDED, ORALLY, Q8H PRN PAIN MDD3, 30 DAY(S), 90, REFILLS 0 NOTES: LEFT SIJ, ISTOP REGISTRY REVIEWED AND DEMNOSTRATES COMPLLIANCE. BRINGS IN MEDICATIONS WHICH IS APPROPRIATE FOR WHAT WAS DISPENSED. RECENT URINE TOXICOLOGY REVIEWED. NO UNAUTHORIZED MEDICATIONS. NO ILLICIT SUBSTANCES AND PRESCRIBED MEDICATIONS WERE PRESENT. , RISKS AND BENEFITS OF NARCOTIC/OPIOD MEDICATIONS WERE REVIEWED WITH PATIENT - THIS INCLUDES BUT IS NOT LIMITED TO RISK OF DEPENDANCE/DEVELOPMENT OF ADDICTION, MOOD DISTURBANCE AND DEPRESSION, OSTEOPOROSIS, HORMONAL AND LABIDAL CHANGES, RESPIRATORY DEPRESSION AND . PATIENT IS ADVISED NOT TO DRIVE WHILE ON THESE MEDICATIONS,PATIENT EDUCATION WAS PRINTED,UNDERSTANDING SACROILIAC STRAIN MATERIAL WAS PRINTED,ANATOMY OF THE SACROILIAC JOINT MATERIAL WAS PRINTED. PREVENTIVE MEDICINE PAIN CLINIC TEACHING: PROCEDURE TEACHING SACROILIAC JOINT INJECTION INFORMATION WAS GIVEN AND TEACHING DONE WITH PATIENT. QUESTIONS ANSWERED AND PATIENT VERBALIZES UNDERSTANDING.. PROCEDURE CODES FA211 ESTABILISHED PATIENT [facility] CHARGE G8730 PAIN ASSESS POS TOOL F/U PLAN DOC G8427 DOC MEDS VERIFIED W/PT OR RE DISPOSITION & COMMUNICATION FOLLOW UP 2WK POST (REASON: LEFT SIJ) ELECTRONICALLY SIGNED BY EDGAR RAMIREZ ON 03/28/2017 AT 03:53 PM EDT DISCLAIMER : THIS IS A VISIT SUMMARY EXTRACTED FROM THE [employer] CHART. IT IS NOT A COPY OF THE [employer] PROGRESS NOTE. SHELBY
== END ==
LOC: M PAIN 14:20
PROVIDERS: ATTEND Nurse Practitioner Family
DX: G89.29 Other chronic pain (principal); M54.5 Low back pain; M53.3 Sacrococcygeal disorders, not elsewhere classified; I10 Essential (primary) hypertension; E11.9 Type 2 diabetes mellitus without complications; M25.561 Pain in right knee; E78.5 Hyperlipidemia, unspecified; M25.562 Pain in left knee; M12.88 Other specific arthropathies, not elsewhere classified, other specified site; F32.9 Major depressive disorder, single episode, unspecified; F17.210 Nicotine dependence, cigarettes, uncomplicated; Z91.5 Personal history of self-harm; Z79.84 Long term (current) use of oral hypoglycemic drugs; Z79.891 Long term (current) use of opiate analgesic; Z88.0 Allergy status to penicillin; Z88.5 Allergy status to narcotic agent; Z91.048 Other nonmedicinal substance allergy status; Z91.018 Allergy to other foods

== ENCOUNTER 2017-04-06 10:00 | Outpatient (RCR) | payer MEDICARE, MEDICAID ==
[~2017-04-06 10:00] MED LIST changes: -IBUP80TA PO; -MAPA500C PO; -NEXI40GR; -PERC10TA26; -REGL10TA6 PO; -SERT-155 PO; -SUCR1SUS PO
[2017-06-09] MEDS ORDERED: SERT-155 PO (09:44)
[2017-06-09] MEDS ORDERED: CYCL10TA PO (09:44)
[2017-06-09] MEDS ORDERED: SUCR1SUS PO (09:44)
[2017-06-09] MEDS ORDERED: IBUP80TA PO (09:44)
[2017-06-09] MEDS ORDERED: MAPA500C PO (09:44)
== END 2017-04-07 | disposition home or self-care (01) ==
LOC: M OUTALCOH 10:00
PROVIDERS: ATTEND Psychiatry & Neurology Psychiatry
DX: F10.10 Alcohol abuse, uncomplicated (principal); Z72.0 Tobacco use

== ENCOUNTER → 2017-04-26 | Outpatient (CLI) | payer MEDICARE, MEDICAID ==
[~2017-04-26] MED LIST changes: +IBUP80TA PO; +MAPA500C PO; +NEXI40GR; +PERC10TA26; +REGL10TA6 PO; +SERT-155 PO; +SUCR1SUS PO
--- NOTE | 2017-04-27 00:15 | ECWPNPC ---
PATIENT NAME: DELL MCCANN : 1960 GENDER: MALE VISIT DATE: 04/26/2017 DISCHARGE DATE: 04/26/17 0935 VISIT LOCKED DATE TIME: PHYSICIAN: SATYA SLAUGHTER RESOURCE: SATYA SLAUGHTER REASON FOR APPOINTMENT 1. POST PROCEDURE HISTORY OF PRESENT ILLNESS HISTORY OF PRESENT ILLNESS: HERE FOR F/U AND MANAGEMENT OF CHRONIC LOW BACK PAIN AND BILAT. LEG PAIN.RATING PAIN VAS 4/10 .REPORTED A FALL INJURY SEVERAL DAYS AGO AND HAD NEW ONSET LEFT LOW BACK AND LEG PAIN.HAS APT SCHEDULED FOR LEFT SIJ HERE IN MAY..DISCUSSED MEDICINE AND TREATMENT OPTIONS.TRAMADOL CAUSES MIGRAINES AND CURRENT TYLENOL 500MG BID INEFFECTIVE.DESCRIBES PAIN ACHING AND SORE.USING PERCOCET 5/325 ONE TABLET PERIODICALLY FOR SEVERE PAIN WITH GOOD EFFECT.BRINGS IN MEDICATION WHICH IS ACCURATE FOR WHAT WAS DISPENSED.DENIES ADVERSE SIDE EFFECTS. PAIN THE PATIENT DESCRIBES THE PAIN... THE PATIENT DESCRIBES THE PAIN... THE PATIENT DESCRIBES THE PAIN... THE PATIENT DESCRIBES THE PAIN... THE PATIENT DESCRIBES THE PAIN... THE PATIENT DESCRIBES THE PAIN... FALL RISK SCREENING: SCREENING :NO FALLS IN THE PAST YEAR CURRENT MEDICATIONS TAKING LANCET DEVICES - MISCELLANEOUS ICD:E11.9 _ FSBS TWICE DAILY TAKING LANCETS - MISCELLANEOUS ICD:E11.9 SUBCUTANEOUSLY FSBS TWICE DAILY TAKING SINGULAIR 10 MG TABLET 1 TABLET IN THE EVENING ORALLY ONCE A DAY TAKING AMLODIPINE BESY-BENAZEPRIL HCL 2.5-10 MG CAPSULE DIRECTED ORALLY ONCE DAILY TAKING BLOOD GLUCOSE TEST STRIP - STRIP ICD:E11.9 IN VITRO FSBS TWICE DAILY TAKING NEBULIZER - DEVICE DIRECTED J44.9 FOUR TIMES DAILY NEEDED TAKING OXYBUTYNIN CHLORIDE ER 10 MG TABLET EXTENDED RELEASE 24 HOUR 1 TABLET ORALLY ONCE A DAY TAKING BLOOD GLUCOSE METER - KIT MONITOR ICD:E11.9 FSBS TWICE DAILY TAKING BLOOD PRESSURE CUFF - MISCELLANEOUS DIRECTED _ DAILY TAKING BLOOD PRESSURE MONITOR - DEVICE 1 MONITOR _DX:I10 DAILY TAKING ALBUTEROL SULFATE (2.5 MG/3ML) 0.083% NEBULIZATION SOLUTION 3 ML INHALATION FOUR TIMES DAILY NEEDED TAKING NEBULIZER - DEVICE 1 DEVICE DX:J45.998 FOUR TIMES DAILY NEEDED TAKING FLONASE ALLERGY RELIEF 50 MCG/ACT SUSPENSION 1 SPRAY IN EACH NOSTRIL NASALLY ONCE A DAY TAKING SERTRALINE HCL 100 MG TABLET 1 1/2 TABS ORALLY ONCE A DAY TAKING CYCLOBENZAPRINE HCL 10 MG TABLET 1 TABLET ORALLY BEFORE BEDTIME TAKING ACETAMINOPHEN 500 MG TABLET 1 ORALLY BID TAKING HYDROXYZINE HCL 50 MG TABLET 1 TABLET NEEDED ORALLY AT BED TIME TAKING VENTOLIN HFA 108 (90 BASE) MCG/ACT AEROSOL SOLUTION 2 PUFFS NEEDED INHALATION EVERY 4 HRS PRN TAKING CLOBETASOL PROPIONATE 0.05 % SHAMPOO 1 APPLICATION TO SCALP EXTERNALLY TWICE DAILY TAKING CLOBETASOL PROPIONATE 0.05 % LOTION 1 APPLICATION TO AFFECTED AREA EXTERNALLY TWICE A DAY TAKING BENADRYL ALLERGY 25 MG CAPSULE 1 CAPSULE NEEDED ORALLY 3 TIMES A DAY NEEDED TAKING PRILOSEC 20 MG CAPSULE DELAYED RELEASE 1 CAP ORALLY ONCE A DAY TAKING NEBULIZER/TUBING/MOUTHPIECE - KIT TAKING IBUPROFEN 600 MG TABLET 1 TABLET ORALLY THREE TIMES A DAY TAKING PERCOCET 5-325 MG TABLET 1 TABLET NEEDED ORALLY Q8H PRN PAIN MDD3 TAKING METFORMIN HCL 500 MG TABLET 1 TAB ORALLY DAILY TAKING ATORVASTATIN CALCIUM 80 MG TABLET 1 TAB ORALLY DAILY NOT-TAKING PRILOSEC 40 MG CAPSULE DELAYED RELEASE 1 CAPSULE ONCE A DAY ORALLY 30 DAY(S) NOT-TAKING ZYRTEC 10 MG TABLET 1 TABLET ORALLY ONCE A DAY NOT-TAKING TESSALON PERLES 100 MG CAPSULE 1 CAPSULE NEEDED ORALLY THREE TIMES A DAY, NOTES: 12-16-16 09 MEDICATION LIST REVIEWED AND RECONCILED WITH THE PATIENT PAST MEDICAL HISTORY HYPERTENSION DIABETES 2 HYPERLIPIDEMIA CHRONIC BACK PAIN CHRONIC BILATERAL KNEE PAIN - "ARTHRITIS" DEPRESSION WITH SUICIDE ATTEMPT IN 2012 - [facility] STAY FOR 1 MONTH ALLERGIES PENICILLIN V POTASSIUM: SWELLING: ALLERGY TRAMADOL HCL: MIGRAINES: SIDE EFFECTS PORK: FACIAL SWELLING: ALLERGY HAIR DYE: FACIAL SWELLING AND HEAD SORES: ALLERGY SURGICAL HISTORY STERIOD INJECTIONS LOWER BACK 2013 HOSPITALIZATION/MAJOR DIAGNOSTIC PROCEDURE FRACTURED RIBS 1977 REVIEW OF SYSTEMS REVIEWED BY: PROVIDER: SATYA HERNÁNDEZ . CONSTITUTIONAL: ANY CHANGE IN YOUR MEDICAL CONDITION? NO . CHILLS NO . FEVER NO . INFECTION: DO YOU HAVE NEW INFECTIONS? NO . DO YOU HAVE HISTORY OF MRSA? NO . MUSCULOSKELETAL: ANY NEW PATTERNS OF PAIN OR NUMBNESS? NO . GASTROENTEROLOGY: ANY NEW CHANGE IN BOWEL CONTROL? NO . GENITOURINARY: ANY NEW CHANGE IN BLADDER CONTROL? NO . IS THERE A CHANCE YOU COULD BE ? NO . HEMATOLOGY/LYMPH: DO YOU TAKE ANY BLOOD THINNERS? (FOR EXAMPLE- COUMADIN, PLAVIX, AGGRENOX, PLATEL, PRADAXA, OR XARELTO) NO . WHEN WAS YOUR LAST DOSE? DATE: TIME: . NEUROLOGY: HAVE YOU FALLEN IN THE PAST 6 MONTHS? YES, FELL DOWN 4-5 STAIRS ONTO HARD FLOOR FROM LOSS OF BALANCE PT STATES HE CAME HERE TO PAIN CLINIC 2 DAYS LATER FOR SCHEDULED APPT AND LEFT LEG WAS ADDRESSED . ANY NEW EXTREMITY NUMBNESS OR WEAKNESS? NO . CARDIOLOGY: DO YOU HAVE A PACEMAKER OR DEFIBRILLATOR? NO . RESPIRATORY: HAVE YOU BEEN SICK IN THE PAST WEEK? NO . FEVER NO . FLU LIKE SYMPTOMS? NO . COUGH NO . INTEGUMENTARY: DO YOU HAVE ANY RASHES OR OPEN SORES? NO . ALLERGIC/IMMUNO: ARE YOU ALLERGIC TO SHELLFISH OR IV DYE? NO . ANY NEW ALLERGIES? NO . PSYCHIATRIC: DO YOU HAVE THOUGHTS OF HURTING YOURSELF OR SOMEONE ELSE? NO . ARE YOU ABUSED, NEGLECTED, OR IN AN UNSAFE ENVIRONMENT? NO . ENDOCRINOLOGY: ARE YOU DIABETIC? YES . OTHER: DO YOU NEED ANY PRESCRIPTIONS? YESOXYCODONE-APAP, CYCLOBENZAPRINE, IBUPROFEN, JUSTICE . IF YES, PLEASE LIST: ____ . ANY NEW PROBLEMS WITH YOUR MEDICATIONS? NO . WHEN DID YOU LAST EAT? ____ . WHEN DID YOU LAST DRINK? ____ . WHAT DID YOU LAST DRINK? ____ . NAME OF PERSON DRIVING YOU HOME? ____ . DO YOU HAVE ANY OTHER QUESTIONS OR CONCERNS NO . VITAL SIGNS WT 210.0 LBS, HT 71 IN, BMI 29.29 INDEX, BP 136/85 MM HG, HR 83 /MIN, RR 16 /MIN, TEMP 97.4 F, OXYGEN SAT % 98%, NA INITIALS TL 0913. EXAMINATION GENERAL EXAMINATION: GENERAL APPEARANCE:COMFORTABLE. PSYCHAFFECT NORMAL. LUNGS:LUNG MCCANN ARE CLEAR TO AUSCULTATION BILATERALLY. GOOD MOVEMENT OF AIR. HEART:S1, S2 IN A REGULAR RATE AND RHYTHM. NO SIGNIFICANT MURMURS, RUBS OR GALLOPS NOTED. LUMBAR SPINE/LOWER BACK: PALPATION:PARASPINAL TENDERNESS, VERTEBRAL SPINE TENDERNESS.SPECIFIC POINT TENDERNESS OVER LEFT SIJ.. MOTOR SYSTEM:5/5 BLE. ASSESSMENTS LUMBAR FACET ARTHROPATHY - M12.88 (PRIMARY) CHRONIC PRESCRIPTION OPIATE USE - Z79.891 SACROILIAC JOINT PAIN - M53.3 TREATMENT LUMBAR FACET ARTHROPATHY REFILL PERCOCET TABLET, 5-325 MG, 1 TABLET NEEDED, ORALLY, Q8H PRN PAIN MDD3, 30 DAY(S), 90, REFILLS 0 NOTES: ISTOP REGISTRY REVIEWED AND DEMNOSTRATES COMPLLIANCE. BRINGS IN MEDICATIONS WHICH IS APPROPRIATE FOR WHAT WAS DISPENSED. RECENT URINE TOXICOLOGY REVIEWED. NO UNAUTHORIZED MEDICATIONS. NO ILLICIT SUBSTANCES AND PRESCRIBED MEDICATIONS WERE PRESENT. , RISKS AND BENEFITS OF NARCOTIC/OPIOD MEDICATIONS WERE REVIEWED WITH PATIENT - THIS INCLUDES BUT IS NOT LIMITED TO RISK OF DEPENDANCE/DEVELOPMENT OF ADDICTION, MOOD DISTURBANCE AND DEPRESSION, OSTEOPOROSIS, HORMONAL AND LABIDAL CHANGES, RESPIRATORY DEPRESSION AND . PATIENT IS ADVISED NOT TO DRIVE WHILE ON THESE MEDICATIONS. PROCEDURE CODES FA211 ESTABILISHED PATIENT [facility] CHARGE G8730 PAIN ASSESS POS TOOL F/U PLAN DOC G8427 DOC MEDS VERIFIED W/PT OR RE DISPOSITION & COMMUNICATION FOLLOW UP 4-6 WEEKS ELECTRONICALLY SIGNED BY EDGAR RAMIREZ ON 04/26/2017 AT 12:10 PM EDT DISCLAIMER : THIS IS A VISIT SUMMARY EXTRACTED FROM THE [employer] CHART. IT IS NOT A COPY OF THE [employer] PROGRESS NOTE. SHELBY
== END ==
LOC: M PAIN 09:00
PROVIDERS: ATTEND Nurse Practitioner Family
DX: G89.29 Other chronic pain (principal); M53.3 Sacrococcygeal disorders, not elsewhere classified; M17.0 Bilateral primary osteoarthritis of knee; I10 Essential (primary) hypertension; E11.9 Type 2 diabetes mellitus without complications; E78.5 Hyperlipidemia, unspecified; F32.9 Major depressive disorder, single episode, unspecified; K21.9 Gastro-esophageal reflux disease without esophagitis; J45.998 Other asthma; Z88.0 Allergy status to penicillin; Z88.5 Allergy status to narcotic agent; Z91.018 Allergy to other foods; Z91.09 Other allergy status, other than to drugs and biological substances; Z79.1 Long term (current) use of non-steroidal anti-inflammatories (NSAID); Z79.84 Long term (current) use of oral hypoglycemic drugs; Z79.899 Other long term (current) drug therapy

== ENCOUNTER 2017-05-04 09:00 | Outpatient (RCR) | payer MEDICARE, MEDICAID ==
[~2017-05-04 09:00] MED LIST changes: -IBUP80TA PO; -MAPA500C PO; -NEXI40GR; -PERC10TA26; -REGL10TA6 PO; -SERT-155 PO; -SUCR1SUS PO
[2017-06-09] MEDS ORDERED: IBUP80TA PO (09:44)
[2017-06-09] MEDS ORDERED: MAPA500C PO (09:44)
[2017-06-09] MEDS ORDERED: SUCR1SUS PO (09:44)
[2017-06-09] MEDS ORDERED: CYCL10TA PO (09:44)
[2017-06-09] MEDS ORDERED: SERT-155 PO (09:44)
== END 2017-05-08 ==
LOC: M OUTALCOH 09:00
PROVIDERS: ATTEND Psychiatry & Neurology Psychiatry
DX: F10.10 Alcohol abuse, uncomplicated (principal); Z72.0 Tobacco use

== ENCOUNTER → 2017-05-09 | Outpatient (CLI) | payer MEDICARE, MEDICAID ==
[~2017-05-09] MED LIST changes: +IBUP80TA PO; +MAPA500C PO; +NEXI40GR; +PERC10TA26; +REGL10TA6 PO; +SERT-155 PO; +SUCR1SUS PO
--- NOTE | 2017-05-23 01:25 | ECWPNPC ---
PATIENT NAME: DELL MCCANN : 1960 GENDER: MALE VISIT DATE: 05/09/2017 DISCHARGE DATE: 05/09/17 1124 VISIT LOCKED DATE TIME: PHYSICIAN: EM DAUGHERTY RESOURCE: EM DAUGHERTY REASON FOR APPOINTMENT 1. LOW BACK PAIN HISTORY OF PRESENT ILLNESS HISTORY OF PRESENT ILLNESS: PAIN THE PATIENT DESCRIBES THE PAIN... 56 YEAR OLD MALE PATIENT WITH HISTORY OF CHRONIC LOW BACK PAIN. PATIENT DESCRIBES THE PAIN ACHING, SORE, AND HAVING IT ALL THE TIME WITH A PAIN SCORE OF 4/10. PATIENT IS CURRENTLY USING CYCLOBENZAPRINE, IBUPROFEN AND PERCOCET TO AID IN PAIN AND STATES THE MEDICATIONS KEEP HIM MOBILE AND FUNCTIONAL. AT THIS TIME THE PATIENT STATES HIS PAIN IS MANAGEABLE AND DOES NOT NEED INTERVENTIONS AT THIS TIME. ANY TYPE OF ACTIVITY WILL AGGRAVATE THE PAIN IN HIS LOWER BACK INCLUDING WALKING, STANDING, AND SITTING. PATIENT DENIES UNEXPLAINABLE WEIGHT LOSS, FEVER, CHILLS, NEW CHANGES ON HER URINARY OR BOWEL CONTROL. FALL RISK SCREENING: SCREENING :NO FALLS IN THE PAST YEAR CURRENT MEDICATIONS TAKING LANCET DEVICES - MISCELLANEOUS ICD:E11.9 _ FSBS TWICE DAILY TAKING LANCETS - MISCELLANEOUS ICD:E11.9 SUBCUTANEOUSLY FSBS TWICE DAILY TAKING SINGULAIR 10 MG TABLET 1 TABLET IN THE EVENING ORALLY ONCE A DAY TAKING AMLODIPINE BESY-BENAZEPRIL HCL 2.5-10 MG CAPSULE DIRECTED ORALLY ONCE DAILY TAKING BLOOD GLUCOSE TEST STRIP - STRIP ICD:E11.9 IN VITRO FSBS TWICE DAILY TAKING NEBULIZER - DEVICE DIRECTED J44.9 FOUR TIMES DAILY NEEDED TAKING OXYBUTYNIN CHLORIDE ER 10 MG TABLET EXTENDED RELEASE 24 HOUR 1 TABLET ORALLY ONCE A DAY TAKING BLOOD GLUCOSE METER - KIT MONITOR ICD:E11.9 FSBS TWICE DAILY TAKING BLOOD PRESSURE CUFF - MISCELLANEOUS DIRECTED _ DAILY TAKING BLOOD PRESSURE MONITOR - DEVICE 1 MONITOR _DX:I10 DAILY TAKING ALBUTEROL SULFATE (2.5 MG/3ML) 0.083% NEBULIZATION SOLUTION 3 ML INHALATION FOUR TIMES DAILY NEEDED TAKING NEBULIZER - DEVICE 1 DEVICE DX:J45.998 FOUR TIMES DAILY NEEDED TAKING FLONASE ALLERGY RELIEF 50 MCG/ACT SUSPENSION 1 SPRAY IN EACH NOSTRIL NASALLY ONCE A DAY TAKING SERTRALINE HCL 100 MG TABLET 1 1/2 TABS ORALLY ONCE A DAY TAKING CYCLOBENZAPRINE HCL 10 MG TABLET 1 TABLET ORALLY BEFORE BEDTIME TAKING HYDROXYZINE HCL 50 MG TABLET 1 TABLET NEEDED ORALLY AT BED TIME TAKING VENTOLIN HFA 108 (90 BASE) MCG/ACT AEROSOL SOLUTION 2 PUFFS NEEDED INHALATION EVERY 4 HRS PRN TAKING CLOBETASOL PROPIONATE 0.05 % SHAMPOO 1 APPLICATION TO SCALP EXTERNALLY TWICE DAILY TAKING CLOBETASOL PROPIONATE 0.05 % LOTION 1 APPLICATION TO AFFECTED AREA EXTERNALLY TWICE A DAY TAKING BENADRYL ALLERGY 25 MG CAPSULE 1 CAPSULE NEEDED ORALLY 3 TIMES A DAY NEEDED TAKING PRILOSEC 20 MG CAPSULE DELAYED RELEASE 1 CAP ORALLY ONCE A DAY TAKING NEBULIZER/TUBING/MOUTHPIECE - KIT TAKING IBUPROFEN 600 MG TABLET 1 TABLET ORALLY THREE TIMES A DAY TAKING METFORMIN HCL 500 MG TABLET 1 TAB ORALLY DAILY TAKING ATORVASTATIN CALCIUM 80 MG TABLET 1 TAB ORALLY DAILY TAKING PERCOCET 5-325 MG TABLET 1 TABLET NEEDED ORALLY Q8H PRN PAIN MDD3 TAKING PRILOSEC 40 MG CAPSULE DELAYED RELEASE 1 CAPSULE ONCE A DAY ORALLY 30 DAY(S) ORALLY ONCE A DAY NOT-TAKING ACETAMINOPHEN 500 MG TABLET 1 ORALLY BID NOT-TAKING ZYRTEC 10 MG TABLET 1 TABLET ORALLY ONCE A DAY NOT-TAKING TESSALON PERLES 100 MG CAPSULE 1 CAPSULE NEEDED ORALLY THREE TIMES A DAY, NOTES: 12-16-16 0900 MEDICATION LIST REVIEWED AND RECONCILED WITH THE PATIENT PAST MEDICAL HISTORY HYPERTENSION DIABETES 2 HYPERLIPIDEMIA CHRONIC BACK PAIN CHRONIC BILATERAL KNEE PAIN - "ARTHRITIS" DEPRESSION WITH SUICIDE ATTEMPT IN 2011 - [facility] STAY FOR 1 MONTH ALLERGIES PENICILLIN V POTASSIUM: SWELLING: ALLERGY TRAMADOL HCL: MIGRAINES: SIDE EFFECTS PORK: FACIAL SWELLING: ALLERGY HAIR DYE: FACIAL SWELLING AND HEAD SORES: ALLERGY CATS: SNEEZING, ITCHY EYES: ALLERGY WET GRASS: SNEEZING, COUGHING: ALLERGY SOCIAL HISTORY GENERAL: TOBACCO USE ARE YOU A:CURRENT SMOKER HOW MANY CIGARETTES A DAY DO YOU SMOKE?5 OR LESS HOW SOON AFTER YOU WAKE UP DO YOU SMOKE YOUR FIRST CIGARETTE?31-60 MIN HOW OFTEN DO YOU SMOKE CIGARETTES?EVERY DAY PATIENT COUNSELED ON THE DANGERS OF TOBACCO USE AND URGED TO QUIT:05/09/2017 ARE YOU INTERESTED IN QUITTING?THINKING ABOUT QUITTING PREVIOUS QUIT ATTEMPTS?NO. COUNSELED THE PATIENT ON SMOKING CESSATION, EDUCATION [id number]/01/2017 BMI CARE GOAL FOLLOW-UP ABOVE NORMAL BMI [facility] REGARDING DIET ALCOHOL SCREENING DID YOU HAVE A DRINK CONTAINING ALCOHOL IN THE PAST YEAR?NO POINTS0 INTERPRETATIONNEGATIVE RECREATIONAL DRUG USE DRUG USE?NO CAFFEINE CAFFEINE USE?YES OCCUPATION: UNEMPLOYED. DIET: REGULAR. EXERCISE: NO REGULAR EXERCISE. MARITAL STATUS: . OTHERS AT HOME: NONE. PETS: NONE. EVANGELICAL NO HINDUISM BELIEFS THAT WOULD IMPACT HEALTH CARE. LANGUAGE YAKUT. LEARNING BARRIERS / SPECIAL NEEDS CHANGE FROM LAST VISIT?YES BARRIERS TO LEARNING?NO HEARING IMPAIRED?NO VISION IMPAIRED?NO COGNITIVELY IMPAIRED?NO READINESS TO LEARN?YES LEARNING PREFERENCES?NO LEARNING CAPABILITIES PRESENT?YES EMOTIONAL BARRIERS?NO SPECIAL DEVICES?NO IMMIGRATION INSPECTOR NEEDED?NO NEW PATIENT PAIN DIARY TODAY'S VISIT NOTES, FROM 0-10, WHAT LEVEL IS YOUR PAIN TODAY? 0. PAIN CLINIC PFS, CLERGY, PUBLIC HEALTH REFERRALS PFS REFERRAL NEEDED?NO CLERGY REFERRAL NEEDED?NO PUBLIC HEALTH REFERRAL NEEDED?NO HAS THE PATIENT BEEN EDUCATED REGARDING HIS/HER PLAN OF CARE?YES HAS THE PATIENT BEEN EDUCATED REGARDING PAIN, THE RISK FOR PAIN, THE IMPORTANCE OF EFFECTIVE PAIN MANAGEMENT, AND THE PAIN ASSESSMENT PROCESS?YES REVIEW OF SYSTEMS REVIEWED BY: PROVIDER: EM DAUGHERTY MD . CONSTITUTIONAL: ANY CHANGE IN YOUR MEDICAL CONDITION? NO . CHILLS NO . FEVER NO . INFECTION: DO YOU HAVE NEW INFECTIONS? NO . DO YOU HAVE HISTORY OF MRSA? NO . MUSCULOSKELETAL: ANY NEW PATTERNS OF PAIN OR NUMBNESS? YES, PAIN BOTTOM OF LEFT FOOT X 4 MONTHS . GASTROENTEROLOGY: ANY NEW CHANGE IN BOWEL CONTROL? NO . GENITOURINARY: ANY NEW CHANGE IN BLADDER CONTROL? NO . IS THERE A CHANCE YOU COULD BE ? NO . HEMATOLOGY/LYMPH: DO YOU TAKE ANY BLOOD THINNERS? (FOR EXAMPLE- COUMADIN, PLAVIX, AGGRENOX, PLATEL, PRADAXA, OR XARELTO) NO . WHEN WAS YOUR LAST DOSE? DATE: TIME: . NEUROLOGY: HAVE YOU FALLEN IN THE PAST 6 MONTHS? NO . ANY NEW EXTREMITY NUMBNESS OR WEAKNESS? NO . CARDIOLOGY: DO YOU HAVE A PACEMAKER OR DEFIBRILLATOR? NO . RESPIRATORY: HAVE YOU BEEN SICK IN THE PAST WEEK? NO . FEVER NO . FLU LIKE SYMPTOMS? NO . COUGH NO . INTEGUMENTARY: DO YOU HAVE ANY RASHES OR OPEN SORES? NO . ALLERGIC/IMMUNO: ARE YOU ALLERGIC TO SHELLFISH OR IV DYE? NO . ANY NEW ALLERGIES? NO . PSYCHIATRIC: DO YOU HAVE THOUGHTS OF HURTING YOURSELF OR SOMEONE ELSE? NO . ARE YOU ABUSED, NEGLECTED, OR IN AN UNSAFE ENVIRONMENT? NO . ENDOCRINOLOGY: ARE YOU DIABETIC? YES FSBS 119 THIS AM . OTHER: DO YOU NEED ANY PRESCRIPTIONS? NO . IF YES, PLEASE LIST: ____ . ANY NEW PROBLEMS WITH YOUR MEDICATIONS? NO . WHEN DID YOU LAST EAT? 05/08/17 . WHEN DID YOU LAST DRINK? ____05/09/17 0600 . WHAT DID YOU LAST DRINK? WATER . NAME OF PERSON DRIVING YOU HOME? JOHN . DO YOU HAVE ANY OTHER QUESTIONS OR CONCERNS NO . VITAL SIGNS WT 208.0 LBS, HT 71 IN, BMI 29.01 INDEX, BP 138/88 MM HG, HR 95 /MIN, RR 16 /MIN, TEMP 98.1 F, OXYGEN SAT % 96%, NA INITIALS AW 0909, REVIEWED BY: CARY. EXAMINATION : PATIENT IS ALERT O X 3 AND COOPERATIVE. TENDERNESS IN THE LOWER BACK AND PARASPINAL MUSCLE GROUP. MRI OF THE LUMBAR SPINE DONE ON 11/03/16 SHOWS DISC BULGES AT L3-4, L4-L5, AND L5-S1. ASSESSMENTS INTERVERTEBRAL DISC DISORDERS WITH RADICULOPATHY, LUMBAR REGION - M51.16 (PRIMARY) INTERVERTEBRAL DISC DISORDERS WITH RADICULOPATHY, LUMBOSACRAL REGION - M51.17 SPONDYLOSIS WITHOUT MYELOPATHY OR RADICULOPATHY, LUMBAR REGION - M47.816 TREATMENT INTERVERTEBRAL DISC DISORDERS WITH RADICULOPATHY, LUMBAR REGION NOTES: WE DICUSSED SEVERAL ISSUES WITH MR. MCCANN' PAIN MANAGEMENT CASE. AT THIS TIME THE PATIENT WILL CONTINUE WITH THE SAME MEDICATION REGIME BEFORE. PATIENT DENIES ABUSE OF ANY MEDICATION, DENIES USE OF ILLEGAL SUBSTANCES, AND STATES HE IS ONLY USING THE MEDICATION FOR PAIN AMAZEMENT. URINE TOXICOLOGY REPORT DONE ON 02/28/17 SHOWS CONSISTENT RESULTS WITH THE PATIENT'S MEDICATION LIST. WE DISCUSSED SEVERAL INJECTIONS THAT MAY THE PATIENT IS PAIN RELIEF. PATIENT IS A GOOD CANDIDATE FOR A THERAPEUTIC FACET BLOCK AND IF THE PATIENT DOESN'T HAVE LONG LASTING RELIEF WE MAY CONSIDER A RADIOFREQUENCY. PATIENT REPORTS HAVING MANAGEABLE PAIN AND DOES NOT NEED INTERVENTIONS AT THIS TIME. PATIENT WILL RETURN TO THE CLINIC IN 4 WEEKS. INSTRUCTIONS WERE GIVEN, QUESTIONS WERE ANSWERED, PATIENT REPORTS UNDERSTANDING AND AGREES WITH THE PLAN. I, MIRNA KHAN, DOCUMENTED THE ABOVE INFORMATION ACTING A SCRIBE FOR DR. DAUGHERTY. I HAVE REVIEWED THE ABOVE DOCUMENT, WRITTEN BY MIRNA JO AND I VERIFY THAT IT IS ACCURATE. OTHERS NOTES: PATIENT EDUCATION WAS PRINTED,FACET JOINT INJECTION: YOUR EXPERIENCE MATERIAL WAS PRINTED. PREVENTIVE MEDICINE PAIN CLINIC TEACHING: PROCEDURE TEACHING PRE FACET BLOCK INSTRUCTIONS PRINTED AND REVIEWED WITH PT. VERBALIZED UNDERSTANDING.. PROCEDURE CODES FA211 ESTABILISHED PATIENT [facility] FACILITY CHARGE G8427 DOC MEDS VERIFIED W/PT OR RE G8730 PAIN ASSESS POS TOOL F/U PLAN DOC DISPOSITION & COMMUNICATION FOLLOW UP 4 WEEKS ELECTRONICALLY SIGNED BY EM DAUGHERTY MD ON 05/22/2017 AT 08:30 PM EDT DISCLAIMER : THIS IS A VISIT SUMMARY EXTRACTED FROM THE [facility] CHART. IT IS NOT A COPY OF THE [facility] PROGRESS NOTE. SHELBY
== END ==
LOC: M PAIN 09:00
PROVIDERS: ATTEND Anesthesiology
DX: G89.29 Other chronic pain (principal); M51.16 Intervertebral disc disorders with radiculopathy, lumbar region; M51.17 Intervertebral disc disorders with radiculopathy, lumbosacral region; M47.816 Spondylosis without myelopathy or radiculopathy, lumbar region; I10 Essential (primary) hypertension; E11.9 Type 2 diabetes mellitus without complications; E78.5 Hyperlipidemia, unspecified; F32.9 Major depressive disorder, single episode, unspecified; F17.210 Nicotine dependence, cigarettes, uncomplicated; Z88.0 Allergy status to penicillin; Z88.5 Allergy status to narcotic agent; Z91.018 Allergy to other foods; J30.81 Allergic rhinitis due to animal (cat) (dog) hair and dander; L23.89 Allergic contact dermatitis due to other agents; J30.2 Other seasonal allergic rhinitis; Z88.1 Allergy status to other antibiotic agents; Z79.84 Long term (current) use of oral hypoglycemic drugs; Z79.891 Long term (current) use of opiate analgesic; Z79.899 Other long term (current) drug therapy

== ENCOUNTER → 2017-05-15 | Outpatient (REF) | payer MEDICARE, MEDICAID ==
[2017-05-15 12:01] LABS: BASO % 0.4 % (0.0-1.0); EOS # 0.1 K/mm3 (0.0-0.50); EOS % 1.8 % (0.0-3.0); LARGE UNSTAINED CELL # 0.2 K/mm3 (0.0-0.4); LARGE UNSTAINED CELL % 2.2 % (0.0-4.0); LYMPH # 2.3 K/mm3 (1.5-4.5); LYMPH % 28.2 % (24.0-44.0); MEAN CORPUSCULAR HEMOGLOBIN 28.5 pg (27.0-33.0); MEAN CORPUSCULAR HGB CONC 32.5 g/dl (32.0-36.5); MEAN CORPUSCULAR VOLUME 87.8 fl (80.0-96.0); MONO # 0.6 K/mm3 (0.0-0.8); MONO % 7.2 % (0.0-5.0); NEUTROPHILS # 4.9 K/mm3 (1.8-7.7); NEUTROPHILS % 60.3 % (36.0-66.0); PLATELET COUNT, AUTOMATED 247 k/mm3 (150-450); RED CELL DISTRIBUTION WIDTH 14.3 % (11.5-14.5); WHITE BLOOD COUNT 8.1 K/mm3 (4.0-10.0)
[2017-05-15 12:06] LABS: AMYLASE 105 U/L (25-115)
== END ==
LOC: M SFHCPLAZ 09:00
PROVIDERS: ATTEND Family Medicine
DX: R13.10 Dysphagia, unspecified (principal); I10 Essential (primary) hypertension

== ENCOUNTER 2017-05-18 08:00 | Outpatient (RCR) | payer MEDICARE, MEDICAID ==
[~2017-05-18 08:00] MED LIST changes: -IBUP80TA PO; -MAPA500C PO; -NEXI40GR; -PERC10TA26; -REGL10TA6 PO; -SERT-155 PO; -SUCR1SUS PO
[2017-06-09] MEDS ORDERED: SUCR1SUS PO (09:44)
[2017-06-09] MEDS ORDERED: MAPA500C PO (09:44)
[2017-06-09] MEDS ORDERED: SERT-155 PO (09:44)
[2017-06-09] MEDS ORDERED: CYCL10TA PO (09:44)
[2017-06-09] MEDS ORDERED: IBUP80TA PO (09:44)
== END 2017-06-08 ==
LOC: M OUTALCOH 08:00
PROVIDERS: ATTEND Psychiatry & Neurology Psychiatry
DX: F10.10 Alcohol abuse, uncomplicated (principal); F17.210 Nicotine dependence, cigarettes, uncomplicated

== ENCOUNTER → 2017-05-23 | Outpatient (CLI) | payer MEDICARE, MEDICAID ==
[~2017-05-23] MED LIST changes: +E-Z-GAS II EFFERVESCENT PACKET (SODIUM BICARB./CITRIC ACID/SIMETHICONE) As Ordered ONE; +E-Z-HD 98% w/w 340GM SUSP BTL As Ordered ONE; +E-Z-PAQUE 96% w/w SUSP 176GM BTL As Ordered ONE; +IBUP80TA PO; +MAPA500C PO; +NEXI40GR; +PERC10TA26; +REGL10TA6 PO; +SERT-155 PO; +SUCR1SUS PO
--- NOTE | 2017-05-23 18:04 | REP ---
ESOPHAGRAM: The procedure was performed by THAO Parker under the direct supervision of Dr. August. All imaging ws reviewed with Dr August prior to dictation. The patient was able to ingest liquid barium in air in a quantity sufficient to produce a double contrast examination. The oral and pharyngeal stages of deglutition appeared unremarkable. Esophageal transport was prompt and efficient. There was no evidence of esophagitis, stricture, mucosa ring or hiatal hernia. In the distal esophagus there is a 3 cm x 1 cm irregular filling defect seen. This is felt to represent an ulcerating mass. There is a linear collection of barium within the mass compatible with ulcerating mass. Endoscopic evaluation is recommended. Reflux is seen to approximately the level of the ashwini. IMPRESSION: 3 cm x 1 cm irregular filling defect thought to represent an ulcerating mass. Endoscopic evaluation is recommended. Gastroesophageal reflux. Fluoroscopy time was 2 minutes and 35 seconds. Reviewed by THAO Booker 05/24/2017 08:12 AEdited and Signed by Efren August MD 05/24/2017 05:03 P
== END ==
LOC: M RAD 08:40
PROVIDERS: ATTEND Student in an Organized Health Care Education/Training Program
DX: R93.3 Abnormal findings on diagnostic imaging of other parts of digestive tract (principal)

== ENCOUNTER → 2017-05-24 | Outpatient (REF) ==
[~2017-05-24] MED LIST changes: -E-Z-GAS II EFFERVESCENT PACKET (SODIUM BICARB./CITRIC ACID/SIMETHICONE) As Ordered ONE; -E-Z-HD 98% w/w 340GM SUSP BTL As Ordered ONE; -E-Z-PAQUE 96% w/w SUSP 176GM BTL As Ordered ONE
--- NOTE | 2017-05-24 16:39 | REP ---
LUMBOSACRAL SPINE: AP and lateral views of the lumbosacral spine are performed with three total views obtained. The study is somewhat limited due to retained barium in the colon from a prior esophagram performed 05/23/2017. There is no compression fracture identified. There is normal alignment and lumbar lordosis. There is no spondylolysis or spondylolisthesis. The disc spaces appear relatively well preserved although there does appear to be mild disc space narrowing at L4-5. There is sclerosis at the facets of L5-S1. The posterior elements are intact. IMPRESSION: Somewhat limited exam due to barium in the colon from recent esophagram 05/23/2017. There appears to be very mild degenerative change of the lower lumbar spine. Signed by Efren August MD 05/24/2017 05:15 P
--- NOTE | 2017-05-24 16:41 | REP ---
Right knee series: Five views: History: Degenerative disc disease. No comparison imaging. Findings: A normal fabella is seen. There is nonarticular spurring fairly prominently at the superior pole patella at the quadriceps tendon insertion. Mild osteoarthritic articular spurring is seen at the patella as well on lateral radiograph. Joint spaces are preserved. No erosive changes seen. Impression: Mild patellofemoral osteoarthritic spurring. Nonarticular spurring is seen at the superior pole patella as well at the quadriceps tendon insertion which may reflect chronic tendonitis. Signed by Akbar Walker MD 05/24/2017 05:01 P
== END ==
LOC: M SMT 14:38
PROVIDERS: ATTEND Internal Medicine
DX: Z02.71 Encounter for disability determination (principal); M17.11 Unilateral primary osteoarthritis, right knee; M25.761 Osteophyte, right knee

== ENCOUNTER → 2017-06-16 | Outpatient (CLI) | payer MEDICARE, MEDICAID ==
[~2017-06-16] VITALS: Ht 180.3 cm; Wt 95.3 kg
[~2017-06-16] MED LIST changes: +LABETALOL HCL 100 MG/20 ML VIAL As Ordered ONE; +LIDOCAINE 2% INJ 100 MG/5 ML SDV (FOR ANES.) As Ordered ONE; +NS 1,000 ML IV SCH; +ONDANSETRON 4MG/2ML VIAL (J2405) As Ordered ONE; +PROPOFOL 200 MG/20 ML VIAL As Ordered ONE
--- NOTE | 2017-06-16 11:28 | ROOR ---
Patient Name: Kenneth Friend Procedure Date: 06/16/2017 10:54 AM Date of : 1960 Age: 56 Room: [facility] Gender: Male Note Status: Finalized Procedure: Upper GI endoscopy Indications: Dysphagia, Abnormal cine-esophagram Providers: Sanju Britton MD Referring MD: Carl Rich DO Requesting Provider: Medicines: Monitored Anesthesia Care Complications: No immediate complications. Procedure: Pre-Anesthesia Assessment: - Prior to the procedure, a History and Physical was performed, and patient medications and allergies were reviewed. The patient is competent. The risks and benefits of the procedure and the sedation options and risks were discussed with the patient. All questions were answered and informed consent was obtained. Patient identification and proposed procedure were verified by the physician, the nurse and the bat carrier in the procedure room. Mental Status Examination: alert and oriented. Airway Examination: normal oropharyngeal airway and neck mobility. Respiratory Examination: clear to auscultation. CV Examination: normal. Prophylactic Antibiotics: The patient does not require prophylactic antibiotics. Prior Anticoagulants: The patient has taken no previous anticoagulant or antiplatelet agents. ASA Grade Assessment: II - A patient with mild systemic disease. After reviewing the risks and benefits, the patient was deemed in satisfactory condition to undergo the procedure. The anesthesia plan was to use monitored anesthesia care (MAC). Immediately prior to administration of medications, the patient was re-assessed for adequacy to receive sedatives. The heart rate, respiratory rate, oxygen saturations, blood pressure, adequacy of pulmonary ventilation, and response to care were monitored throughout the procedure. The physical status of the patient was re-assessed after the procedure. The Endoscope was introduced through the mouth, and advanced to the second part of duodenum. The upper GI endoscopy was accomplished without difficulty. The patient tolerated the procedure well. Findings: A medium-sized, ulcerating mass with no bleeding and no stigmata of recent bleeding was found in the lower third of the esophagus, at the gastroesophageal junction and in the cardia. The mass was non-obstructing and partially circumferential (involving one-half of the lumen circumference). Biopsies were taken with a cold forceps for histology. Verification of patient identification for the specimen was done by the physician and nurse using the patient's name, date and medical record number. Estimated blood loss was minimal. Patchy moderate inflammation characterized by erythema was found in the gastric antrum. Biopsies were taken with a cold forceps for Helicobacter pylori testing. The duodenal bulb and second portion of the duodenum were normal. 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 Biopsied. - Gastritis. Biopsied. - Normal duodenal bulb and second portion of the duodenum. Recommendation: - Patient has a contact number available for emergencies. The signs and symptoms of potential delayed complications were discussed with the patient. Return to normal activities tomorrow. Written discharge instructions were provided to the patient. - Resume previous diet. - Continue present medications. - Use a proton pump inhibitor PO daily for 3 months. - Await pathology results. - Perform CT scan (computed tomography) of the abdomen with contrast at appointment to be scheduled. - Return to GI clinic as previously scheduled 06/30/2017 at 8:30 AM - Return to primary care physician. Sanju Britton MD Sanju Britton MD 06/16/2017 11:28:13 AM This report has been signed electronically. Number of Addenda: 0 Note Initiated On: 06/16/2017 10:54 AM Estimated Blood Loss: Estimated blood loss was minimal.
[2017-06-16 12:25] VITALS: BP 111/78
== END | disposition home or self-care (01) ==
LOC: M OPP 09:17
PROVIDERS: ATTEND Internal Medicine Gastroenterology
DX: C15.9 Malignant neoplasm of esophagus, unspecified (principal); K29.70 Gastritis, unspecified, without bleeding; K21.9 Gastro-esophageal reflux disease without esophagitis; J44.9 Chronic obstructive pulmonary disease, unspecified; I10 Essential (primary) hypertension; E78.5 Hyperlipidemia, unspecified; R06.83 Snoring; M19.90 Unspecified osteoarthritis, unspecified site; F33.9 Major depressive disorder, recurrent, unspecified; E11.9 Type 2 diabetes mellitus without complications; F17.210 Nicotine dependence, cigarettes, uncomplicated; Z79.84 Long term (current) use of oral hypoglycemic drugs; Z79.899 Other long term (current) drug therapy; Z88.0 Allergy status to penicillin; Z88.5 Allergy status to narcotic agent; Z91.018 Allergy to other foods; J30.81 Allergic rhinitis due to animal (cat) (dog) hair and dander; J30.89 Other allergic rhinitis; Z91.041 Radiographic dye allergy status
CPT/HCPCS: 43239; 88305; J2405

== ENCOUNTER → 2017-06-28 | Outpatient (REF) | payer MEDICARE, MEDICAID ==
[~2017-06-28] MED LIST changes: -LABETALOL HCL 100 MG/20 ML VIAL As Ordered ONE; -LIDOCAINE 2% INJ 100 MG/5 ML SDV (FOR ANES.) As Ordered ONE; -NS 1,000 ML IV SCH; -ONDANSETRON 4MG/2ML VIAL (J2405) As Ordered ONE; -PROPOFOL 200 MG/20 ML VIAL As Ordered ONE
[2017-06-28 18:09] LABS: INR 0.91
== END ==
LOC: M LAB REF 17:04
PROVIDERS: ATTEND Internal Medicine Medical Oncology
DX: C15.9 Malignant neoplasm of esophagus, unspecified (principal)

== ENCOUNTER → 2017-06-28 | Outpatient (CLI) | payer MEDICARE, MEDICAID ==
[2017-06-28 10:17] LABS: ALBUMIN 3.7 GM/DL (3.2-5.2); ALBUMIN/GLOBULIN RATIO 0.93 (1.00-1.93); ALKALINE PHOSPHATASE 95 U/L (45-117); ALT/SGPT 26 U/L (12-78); AST/SGOT 17 U/L (15-37); BILIRUBIN,DIRECT 0.1 MG/DL (0.0-0.2); BILIRUBIN,TOTAL 0.6 MG/DL (0.2-1.0); BLOOD UREA NITROGEN 18 MG/DL (7-18); CREATININE FOR GFR 1.22 MG/DL (0.70-1.30); GLOMERULAR FILTRATION RATE > 60.0 (>56); TOTAL PROTEIN 7.7 GM/DL (6.4-8.2)
== END ==
LOC: M LAB 09:21
PROVIDERS: ATTEND Internal Medicine Gastroenterology
DX: R13.10 Dysphagia, unspecified (principal); R93.3 Abnormal findings on diagnostic imaging of other parts of digestive tract; C15.9 Malignant neoplasm of esophagus, unspecified

== ENCOUNTER → 2017-06-29 | Outpatient (CLI) | payer MEDICARE, MEDICAID ==
--- NOTE | 2017-06-30 00:15 | ECWPNPC ---
PATIENT NAME: DELL MCCANN : 1960 GENDER: MALE VISIT DATE: 06/29/2017 DISCHARGE DATE: 06/29/17 1519 VISIT LOCKED DATE TIME: PHYSICIAN: SATYA SLAUGHTER RESOURCE: SATYA SLAUGHTER HISTORY OF PRESENT ILLNESS HISTORY OF PRESENT ILLNESS: HERE FOR F/U AND MANAGEMENT OF CHRONIC LOW BACK PAIN AND BILAT. LEG PAIN.RATING PAIN VAS 7/10 .RECENT DIAGNOSIS OF ESOPHAGEAL CANCER.SUFFERING FROM ANTERIOR CHEST AND ESOPHAGUS PAIN..DISCUSSED MEDICINE AND TREATMENT OPTIONS.TRAMADOL CAUSES MIGRAINES AND CURRENT TYLENOL 500MG BID INEFFECTIVE.DESCRIBES PAIN ACHING AND SORE.USING PERCOCET 5/325 ONE TABLET PERIODICALLY FOR SEVERE PAINAND USING THIS TID .STATES IT ISNT EFFECTIVE.BRINGS IN MEDICATION WHICH IS ACCURATE FOR WHAT WAS DISPENSED.DENIES ADVERSE SIDE EFFECTS. PAIN THE PATIENT DESCRIBES THE PAIN... THE PATIENT DESCRIBES THE PAIN... THE PATIENT DESCRIBES THE PAIN... THE PATIENT DESCRIBES THE PAIN... THE PATIENT DESCRIBES THE PAIN... THE PATIENT DESCRIBES THE PAIN... THE PATIENT DESCRIBES THE PAIN... FALL RISK SCREENING: SCREENING :NO FALLS IN THE PAST YEAR CURRENT MEDICATIONS TAKING LANCET DEVICES - MISCELLANEOUS ICD:E11.9 _ FSBS TWICE DAILY TAKING LANCETS - MISCELLANEOUS ICD:E11.9 SUBCUTANEOUSLY FSBS TWICE DAILY TAKING SINGULAIR 10 MG TABLET 1 TABLET IN THE EVENING ORALLY ONCE A DAY TAKING AMLODIPINE BESY-BENAZEPRIL HCL 2.5-10 MG CAPSULE DIRECTED ORALLY ONCE DAILY TAKING BLOOD GLUCOSE TEST STRIP - STRIP ICD:E11.9 IN VITRO FSBS TWICE DAILY TAKING OXYBUTYNIN CHLORIDE ER 10 MG TABLET EXTENDED RELEASE 24 HOUR 1 TABLET ORALLY ONCE A DAY TAKING BLOOD GLUCOSE METER - KIT MONITOR ICD:E11.9 FSBS TWICE DAILY TAKING BLOOD PRESSURE MONITOR - DEVICE 1 MONITOR _DX:I10 DAILY TAKING FLONASE ALLERGY RELIEF 50 MCG/ACT SUSPENSION 1 SPRAY IN EACH NOSTRIL NASALLY ONCE A DAY TAKING SERTRALINE HCL 100 MG TABLET 1 1/2 TABS ORALLY ONCE A DAY TAKING VENTOLIN HFA 108 (90 BASE) MCG/ACT AEROSOL SOLUTION 2 PUFFS NEEDED INHALATION EVERY 4 HRS PRN TAKING METFORMIN HCL 500 MG TABLET 1 TAB ORALLY DAILY TAKING ATORVASTATIN CALCIUM 80 MG TABLET 1 TAB ORALLY DAILY TAKING PRILOSEC 40 MG CAPSULE DELAYED RELEASE 1 CAPSULE ONCE A DAY ORALLY 30 DAY(S) ORALLY ONCE A DAY TAKING BLOOD PRESSURE CUFF - MISCELLANEOUS DIRECTED _ DAILY TAKING SUCRALFATE 1 GM/10ML SUSPENSION 10 ML ORALLY BEFORE MEALS TAKING TENS UNIT - 1 ICD: M47.817 DAILY NEEDED TAKING TENS UNIT ELECTRO PADS - 1 ICD: M47.817 DAILY NEEDED TAKING CYCLOBENZAPRINE HCL 10 MG TABLET 1 TABLET ORALLY BEFORE BEDTIME TAKING IBUPROFEN 600 MG TABLET 1 TABLET ORALLY THREE TIMES A DAY TAKING PERCOCET 5-325 MG TABLET 1 TABLET NEEDED ORALLY Q8H PRN PAIN MDD3 TAKING POLYETH GLYC-PROPYLENE GLYC 1 PACKET ORALLY NEEDED NOT-TAKING NEBULIZER - DEVICE 1 DX: J45.998 FOUR TIMES DAILY NEEDED NOT-TAKING NEBULIZER/TUBING/MOUTHPIECE - KIT 1 DX: J45.998 FOUR TIMES DAILY NEEDED NOT-TAKING ALBUTEROL SULFATE (2.5 MG/3ML) 0.083% NEBULIZATION SOLUTION 3 ML INHALATION FOUR TIMES DAILY NEEDED NOT-TAKING NEBULIZER - DEVICE 1 DEVICE DX:J45.998 FOUR TIMES DAILY NEEDED NOT-TAKING HYDROXYZINE HCL 50 MG TABLET 1 TABLET NEEDED ORALLY AT BED TIME NOT-TAKING CLOBETASOL PROPIONATE 0.05 % SHAMPOO 1 APPLICATION TO SCALP EXTERNALLY TWICE DAILY NOT-TAKING CLOBETASOL PROPIONATE 0.05 % LOTION 1 APPLICATION TO AFFECTED AREA EXTERNALLY TWICE A DAY NOT-TAKING BENADRYL ALLERGY 25 MG CAPSULE 1 CAPSULE NEEDED ORALLY 3 TIMES A DAY NEEDED NOT-TAKING PRILOSEC 20 MG CAPSULE DELAYED RELEASE 1 CAP ORALLY ONCE A DAY NOT-TAKING ACETAMINOPHEN 500 MG TABLET 1 ORALLY BID NOT-TAKING ZYRTEC 10 MG TABLET 1 TABLET ORALLY ONCE A DAY NOT-TAKING TESSALON PERLES 100 MG CAPSULE 1 CAPSULE NEEDED ORALLY THREE TIMES A DAY, NOTES: 12-16-16 09 MEDICATION LIST REVIEWED AND RECONCILED WITH THE PATIENT PAST MEDICAL HISTORY HYPERTENSION DIABETES 2 HYPERLIPIDEMIA CHRONIC BACK PAIN CHRONIC BILATERAL KNEE PAIN - "ARTHRITIS" DEPRESSION WITH SUICIDE ATTEMPT IN 2011 - FORMER[facility] STAY FOR 1 MONTH DIAGNOSED 06/2017 WITH ESOPHAGEAL CANCER ALLERGIES PENICILLIN V POTASSIUM: SWELLING: ALLERGY TRAMADOL HCL: MIGRAINES: SIDE EFFECTS PORK: FACIAL SWELLING: ALLERGY HAIR DYE: FACIAL SWELLING AND HEAD SORES: ALLERGY CATS: SNEEZING, ITCHY EYES: ALLERGY WET GRASS: SNEEZING, COUGHING: ALLERGY SOCIAL HISTORY GENERAL: TOBACCO USE ARE YOU A:CURRENT SMOKER HOW OFTEN DO YOU SMOKE CIGARETTES?EVERY DAY HOW SOON AFTER YOU WAKE UP DO YOU SMOKE YOUR FIRST CIGARETTE?31-60 MIN HOW MANY CIGARETTES A DAY DO YOU SMOKE?5 OR LESS ARE YOU INTERESTED IN QUITTING?THINKING ABOUT QUITTING PATIENT COUNSELED ON THE DANGERS OF TOBACCO USE AND URGED TO QUIT:05/15/2017 COUNSELED THE PATIENT ON SMOKING CESSATION, EDUCATION [id number]/07/2017 PREVIOUS QUIT ATTEMPTS?NO. BMI CARE GOAL FOLLOW-UP ABOVE NORMAL BMI FOLLOW-UPLIFESTYLE EDUCATION REGARDING DIET ALCOHOL SCREENING DID YOU HAVE A DRINK CONTAINING ALCOHOL IN THE PAST YEAR?NO POINTS0 INTERPRETATIONNEGATIVE RECREATIONAL DRUG USE DRUG USE?NO CAFFEINE CAFFEINE USE?YES OCCUPATION: UNEMPLOYED. DIET: REGULAR. EXERCISE: NO REGULAR EXERCISE. MARITAL STATUS: . OTHERS AT HOME: NONE. PETS: NONE. SHINTO NO MOSQUE BELIEFS THAT WOULD IMPACT HEALTH CARE. LANGUAGE BURMESE. LEARNING BARRIERS / SPECIAL NEEDS CHANGE FROM LAST VISIT?YES BARRIERS TO LEARNING?NO HEARING IMPAIRED?NO VISION IMPAIRED?NO COGNITIVELY IMPAIRED?NO READINESS TO LEARN?YES LEARNING PREFERENCES?NO LEARNING CAPABILITIES PRESENT?YES EMOTIONAL BARRIERS?NO SPECIAL DEVICES?NO BIOLOGY LABORATORY ASSISTANT NEEDED?NO NEW PATIENT PAIN DIARY TODAY'S VISIT NOTES, FROM 0-10, WHAT LEVEL IS YOUR PAIN TODAY? 0. PAIN CLINIC PFS, CLERGY, PUBLIC HEALTH REFERRALS PFS REFERRAL NEEDED?NO CLERGY REFERRAL NEEDED?NO PUBLIC HEALTH REFERRAL NEEDED?NO HAS THE PATIENT BEEN EDUCATED REGARDING HIS/HER PLAN OF CARE?YES HAS THE PATIENT BEEN EDUCATED REGARDING PAIN, THE RISK FOR PAIN, THE IMPORTANCE OF EFFECTIVE PAIN MANAGEMENT, AND THE PAIN ASSESSMENT PROCESS?YES REVIEW OF SYSTEMS REVIEWED BY: PROVIDER: SATYA HERNÁNDEZ . CONSTITUTIONAL: ANY CHANGE IN YOUR MEDICAL CONDITION? YES, WAS DIAGNOSED WITH ESOPHAGEAL CANCER THIS MONTH . CHILLS NO . FEVER NO . INFECTION: DO YOU HAVE NEW INFECTIONS? NO . DO YOU HAVE HISTORY OF MRSA? NO . MUSCULOSKELETAL: ANY NEW PATTERNS OF PAIN OR NUMBNESS? YES, LEFT NECK AND MIDLINE CHSET AREA DOWN . GASTROENTEROLOGY: ANY NEW CHANGE IN BOWEL CONTROL? YES, CONSTIPATION AND DR. HEREDIA ORDERED MEDICATION . GENITOURINARY: ANY NEW CHANGE IN BLADDER CONTROL? NO . IS THERE A CHANCE YOU COULD BE ? NO . HEMATOLOGY/LYMPH: DO YOU TAKE ANY BLOOD THINNERS? (FOR EXAMPLE- COUMADIN, PLAVIX, AGGRENOX, PLATEL, PRADAXA, OR XARELTO) NO . WHEN WAS YOUR LAST DOSE? DATE: TIME: . NEUROLOGY: HAVE YOU FALLEN IN THE PAST 6 MONTHS? NO . ANY NEW EXTREMITY NUMBNESS OR WEAKNESS? NO . CARDIOLOGY: DO YOU HAVE A PACEMAKER OR DEFIBRILLATOR? NO . RESPIRATORY: HAVE YOU BEEN SICK IN THE PAST WEEK? YES . FEVER NO . FLU LIKE SYMPTOMS? NO . COUGH YES . INTEGUMENTARY: DO YOU HAVE ANY RASHES OR OPEN SORES? NO . ALLERGIC/IMMUNO: ARE YOU ALLERGIC TO SHELLFISH OR IV DYE? NO . ANY NEW ALLERGIES? NO . PSYCHIATRIC: DO YOU HAVE THOUGHTS OF HURTING YOURSELF OR SOMEONE ELSE? NO . ARE YOU ABUSED, NEGLECTED, OR IN AN UNSAFE ENVIRONMENT? NO . ENDOCRINOLOGY: ARE YOU DIABETIC? YES . OTHER: DO YOU NEED ANY PRESCRIPTIONS? NO . IF YES, PLEASE LIST: ____ . ANY NEW PROBLEMS WITH YOUR MEDICATIONS? NO . WHEN DID YOU LAST EAT? ____ . WHEN DID YOU LAST DRINK? ____ . WHAT DID YOU LAST DRINK? ____ . NAME OF PERSON DRIVING YOU HOME? ____ . DO YOU HAVE ANY OTHER QUESTIONS OR CONCERNS NO . VITAL SIGNS WT 212.0 LBS, HT 71 IN, BMI 29.56 INDEX, BP 160/100 MM HG, HR 83 /MIN, RR 18 /MIN, TEMP 96.8 F, OXYGEN SAT % 98%, SAFE IN ENV? (Y/N) YES, REVIEWED BY: TASHIA (DONE AT 1438). EXAMINATION GENERAL EXAMINATION: GENERAL APPEARANCE:COMFORTABLE. PSYCHAFFECT NORMAL. LUNGS:LUNG MCCANN ARE CLEAR TO AUSCULTATION BILATERALLY. GOOD MOVEMENT OF AIR. HEART:S1, S2 IN A REGULAR RATE AND RHYTHM. NO SIGNIFICANT MURMURS, RUBS OR GALLOPS NOTED. LUMBAR SPINE/LOWER BACK: PALPATION:PARASPINAL TENDERNESS, VERTEBRAL SPINE TENDERNESS.SPECIFIC POINT TENDERNESS OVER LEFT SIJ.. MOTOR SYSTEM:5/5 BLE. ASSESSMENTS LUMBAR FACET ARTHROPATHY - M12.88 (PRIMARY) CHRONIC PRESCRIPTION OPIATE USE - Z79.891 SACROILIAC JOINT PAIN - M53.3 TREATMENT LUMBAR FACET ARTHROPATHY STOP IBUPROFEN TABLET, 600 MG, 1 TABLET, ORALLY, THREE TIMES A DAY INCREASE PERCOCET TABLET, 10-325 MG, 1 TABLET NEEDED, ORALLY, Q8H PRN PAIN MDD3, 30 DAY(S), 90, REFILLS 0 PROCEDURE CODES FA211 ESTABILISHED PATIENT [facility] CHARGE G8730 PAIN ASSESS POS TOOL F/U PLAN DOC G8427 DOC MEDS VERIFIED W/PT OR RE DISPOSITION & COMMUNICATION FOLLOW UP 4 WEEKS ELECTRONICALLY SIGNED BY EDGAR RAMIREZ ON 06/29/2017 AT 03:24 PM EDT DISCLAIMER : THIS IS A VISIT SUMMARY EXTRACTED FROM THE [employer] CHART. IT IS NOT A COPY OF THE [employer] PROGRESS NOTE. KENZIED
== END ==
LOC: M PAIN 14:15
PROVIDERS: ATTEND Nurse Practitioner Family
DX: M12.88 Other specific arthropathies, not elsewhere classified, other specified site (principal); G89.29 Other chronic pain; M53.3 Sacrococcygeal disorders, not elsewhere classified; E11.9 Type 2 diabetes mellitus without complications; E78.5 Hyperlipidemia, unspecified; I10 Essential (primary) hypertension; K21.9 Gastro-esophageal reflux disease without esophagitis; J45.998 Other asthma; F17.210 Nicotine dependence, cigarettes, uncomplicated; Z79.891 Long term (current) use of opiate analgesic; Z79.899 Other long term (current) drug therapy; Z79.4 Long term (current) use of insulin; Z88.0 Allergy status to penicillin; Z88.8 Allergy status to other drugs, medicaments and biological substances; Z91.018 Allergy to other foods; J30.81 Allergic rhinitis due to animal (cat) (dog) hair and dander; Z91.09 Other allergy status, other than to drugs and biological substances

== ENCOUNTER → 2017-07-03 | Outpatient (CLI) | payer MEDICARE, MEDICAID ==
[~2017-07-03] MED LIST changes: +GASTROGRAFIN SOLUTION 30ML (Q9963) As Ordered ONE; +ISOVUE-370 76% 100ML VIAL (Q9967) As Ordered ONE
--- NOTE | 2017-07-03 18:53 | REP ---
CT CHEST WITH IV CONTRAST: TECHNIQUE: Axial contrast enhanced images from the thoracic inlet to the upper abdomen using 100 mL Isovue 370 intravenous contrast material with multiplanar reformations. A few calcified granulomas are scattered throughout the right lung. No suspicious nodular opacities or infiltrates are seen in either lung. Heart is normal in size. There is no thoracic aortic aneurysm or dissection. No suspicious adenopathy is seen in the mediastinal or hilar regions. There is no pleural or pericardial effusion. There is a small hiatal hernia. IMPRESSION: Small hiatal hernia. Calcified granulomas right lung, otherwise unremarkable. Signed by Efren August MD 07/04/2017 05:18 P
--- NOTE | 2017-07-03 18:57 | REP ---
CT ABDOMEN WITH AND WITHOUT CONTRAST: TECHNIQUE: Axial noncontrast images through the abdomen followed by contrast-enhanced images through the abdomen and pelvis using 100 mL Isovue 370 intravenous contrast material, with coronal and sagittal reformations. The liver, spleen, adrenals, pancreas, and kidneys are normal in appearance. No renal calculus is seen and there is no hydronephrosis. There is no abdominal aortic aneurysm with mild scattered atherosclerotic calcifications. No bowel thickening is seen. Gallbladder is grossly unremarkable. There are degenerative changes of the spine. IMPRESSION: No significant abnormality detected. Signed by Efren August MD 07/04/2017 05:18 P
== END ==
LOC: M RAD 11:30
PROVIDERS: ATTEND Internal Medicine Gastroenterology
DX: R10.13 Epigastric pain (principal); D49.0 Neoplasm of unspecified behavior of digestive system
CPT/HCPCS: 71260; 74170; Q9963; Q9967

== ENCOUNTER → 2017-07-04 | Outpatient (CLI) | payer MEDICARE, MEDICAID ==
[~2017-07-04] MED LIST changes: -GASTROGRAFIN SOLUTION 30ML (Q9963) As Ordered ONE; -ISOVUE-370 76% 100ML VIAL (Q9967) As Ordered ONE
--- NOTE | 2017-07-04 20:15 | REP ---
Whole body PET CT scan: There are no comparison studies. Whole body PET CT scanning is performed from skull base to the upper thighs in this patient for staging of esophageal carcinoma. Neck and supraclavicular areas: There are no hypermetabolic foci. Chest: There is a hypermetabolic focus at the distal esophagus at the esophageal hiatus measuring approximately 1.3 cm in diameter with a standard uptake value of 6.5. There are no other hypermetabolic foci in the chest. Abdomen, pelvis and upper thighs: There is nonspecific bowel uptake. There are no hepatic foci. No skeletal foci. The adrenal foci. No hypermetabolic foci are identified otherwise. Impression: The 1.2 cm focus of hypermetabolic uptake in the distal esophagus. No other hypermetabolic foci are identified. The studies performed with 10 mCi of F 18 FDG. Signed by Efren Montgomery MD 07/04/2017 08:06 P
== END ==
LOC: M PLARAD 12:53
PROVIDERS: ATTEND Internal Medicine Medical Oncology
DX: C15.9 Malignant neoplasm of esophagus, unspecified (principal)
CPT/HCPCS: 78815; A9552

== ENCOUNTER → 2017-07-07 | Outpatient (CLI) | payer MEDICARE, MEDICAID ==
[2017-07-07 11:16] LABS: HEPATITIS B SURFACE ANTIBODY NEGATIVE (POSITIVE); VITAMIN B12 LEVEL 614 PG/ML (247-911)
== END ==
LOC: M LAB 09:57
PROVIDERS: ATTEND Student in an Organized Health Care Education/Training Program
DX: E11.9 Type 2 diabetes mellitus without complications (principal)

== ENCOUNTER → 2017-07-14 | Outpatient (CLI) | payer MEDICARE, MEDICAID ==
--- NOTE | 2017-07-18 07:54 | RADONC ---
RADIATION ONCOLOGY CONSULTATION NOTE DATE: 07/14/2017 CHART NUMBER: [id number] DIAGNOSIS: Lower esophageal cancer. STAGE: IIIA, T2N2MX. ECOG PERFORMANCE STATUS: 0. CONSULTATION NOTE: Mr. 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 HISTORY OF PRESENT ILLNESS: The patient was in his usual state of health until approximately the month or so ago when he began developing some difficulty swallowing. An esophageal x-ray was done that showed a filling defect what was thought to be an ulcerative mass. The patient was seen by Dr. Britton and upper endoscopy was done on 06/16/2017 that showed a medium-size ulcerative mass with no bleeding in the lower third of the esophagus at the gastroesophageal junction and in the cardia. The mass was nonobstructing. A biopsy done at that time was positive for an invasive moderate to poorly differentiated adenocarcinoma. Apparently the patient underwent ultrasound and was staged as a clinical stage IIIA, T2N2 local regional advanced distal esophageal carcinoma. He is now presenting to us for discussion of preoperative radiation therapy and chemotherapy. PAST MEDICAL HISTORY: The patient's past medical history is positive for hypertension, diabetes and asthma. He also has a history of arthritis. ALLERGIES: The patient is allergic to PENICILLIN and TRAMADOL. SOCIAL HISTORY: The patient has smoked half-a-pack of cigarettes per day for 40 years. He drinks alcohol socially. FAMILY HISTORY: The patient's family history is positive for a sister with breast cancer. REVIEW OF SYSTEMS: The patient's review of systems is positive for some difficulty swallowing as well as anxiety. He has decreased energy and some pain in his chest. He also has some shortness of breath. The patient has some low back pain. He denies nausea, vomiting, fevers, chills, night sweats, diplopia, visual disturbances, urinary or bowel difficulties or neurological problems. PHYSICAL EXAMINATION: The patient is a well-developed, well-nourished black male in no acute distress. HEENT exam is normocephalic, atraumatic. Extraocular movements are intact. There is no palpable cervical, supraclavicular, infraclavicular, axillary, or inguinal lymphadenopathy present. Lungs are clear to auscultation and percussion. Heart has a regular rate and rhythm. Abdomen is benign with no hepatosplenomegaly, masses, or tenderness. Rectal examination reveals a normal anal sphincter tone. Skeletal examination reveals no tenderness to pressure or percussion of the bony skeleton. Extremities reveal no clubbing, cyanosis, or edema. Neurologic exam is grossly intact as is the remainder of the physical examination. ASSESSMENT: I do believe the patient is a candidate for external beam radiation therapy and I have so informed him. I have discussed with the patient in detail the potential benefits as well as possible acute and chronic sequelae of external beam radiation therapy. We have discussed logistics of treatment planning, simulation and subsequent fractionated daily radiation treatments. I have scheduled. I am scheduling the patient for simulation and initiation of treatment planning. The patient is scheduled to receive a second opinion from a surgeon. All records have been faxed to Dr. Elder's office. In addition, we have made copies of the patient's various x-rays to take with him as well. We await the results of his second opinion. cc: Rylee Webb MD, FACP MD Dino Bowen MD
== END ==
LOC: M ONCR 13:20
PROVIDERS: ATTEND Radiology Radiation Oncology
DX: C15.9 Malignant neoplasm of esophagus, unspecified (principal)

== ENCOUNTER → 2017-07-19 | Outpatient (CLI) | payer MEDICARE, MEDICAID | LOC: M RAD 10:04 | PROVIDERS: ATTEND Radiology Radiation Oncology | DX: C15.9 Malignant neoplasm of esophagus, unspecified (principal) ==

== ENCOUNTER 2017-07-29 22:16 | Emergency (ER) | payer MEDICARE, MEDICAID ==
[~2017-07-29] VITALS: Ht 180.3 cm; Wt 93.6 kg
[~2017-07-29 22:16] MED LIST changes: -NEXI40GR; -PERC10TA26; -REGL10TA6 PO
[2017-07-29] MEDS ORDERED: NEXI40GR (22:34)
[2017-07-29] MEDS ORDERED: PERC10TA26 (22:34)
[2017-07-29] MEDS ORDERED: METOCLOPRAMIDE INJ 10MG/2ML VIAL (J2765) IV ONE (23:00)
[2017-07-29] MEDS ORDERED: MORPHINE 4 MG/ML 1ML SYRINGE IV PRN (23:00)
[2017-07-29] MEDS ORDERED: NS 500 ML IV ONE (23:00)
[2017-07-29 23:23] LABS: BASO % 0.3 % (0.0-1.0); EOS # 0.1 10^3/uL (0.0-0.50); EOS % 0.6 % (0.0-3.0); IMMATURE GRANULOCYTE % 0.4 % (0-0); LYMPH # 2.1 10^3/uL (1.5-4.5); LYMPH % 18.8 % (24.0-44.0); MEAN CORPUSCULAR HEMOGLOBIN 26.6 pg (27.0-33.0); MEAN CORPUSCULAR HGB CONC 32.1 g/dl (32.0-36.5); MEAN CORPUSCULAR VOLUME 82.7 fl (80.0-96.0); MONO % 9.1 % (0.0-5.0); NEUTROPHILS # 7.8 10^3/uL (1.8-7.7); NEUTROPHILS % 70.8 % (36.0-66.0); PLATELET COUNT, AUTOMATED 294 10^3/uL (150-450); RED CELL DISTRIBUTION WIDTH 14.6 % (11.5-14.5); WHITE BLOOD COUNT 11.1 10^3/uL (4.0-10.0)
[2017-07-29 23:44] LABS: ALBUMIN 3.9 GM/DL (3.2-5.2); ALBUMIN/GLOBULIN RATIO 0.87 (1.00-1.93); ALKALINE PHOSPHATASE 90 U/L (45-117); ALT/SGPT 43 U/L (12-78); ANION GAP 8 MEQ/L (8-16); AST/SGOT 34 U/L (15-37); BILIRUBIN,DIRECT 0.2 MG/DL (0.0-0.2); BILIRUBIN,TOTAL 0.7 MG/DL (0.2-1.0); BLOOD UREA NITROGEN 14 MG/DL (7-18); CALCIUM LEVEL 9.7 MG/DL (8.5-10.1); CARBON DIOXIDE LEVEL 31 MEQ/L (21-32); CHLORIDE LEVEL 101 MEQ/L (98-107); CREATININE FOR GFR 1.04 MG/DL (0.70-1.30); GLOMERULAR FILTRATION RATE > 60.0 (>56); GLUCOSE, FASTING 147 MG/DL (70-105); POTASSIUM SERUM 3.5 MEQ/L (3.5-5.1); SODIUM LEVEL 140 MEQ/L (136-145); TOTAL PROTEIN 8.4 GM/DL (6.4-8.2)
--- NOTE | 2017-07-30 00:20 | REPUSA ---
HISTORY: RECENT G TUBE PLACEMENT, INTRACTABLE VOMITING. TECHNIQUE: Axial CT imaging of abdomen and pelvis with sagittal and coronal reformatted imaging, with out contrast. DLP= 562 mGy-cm. FINDINGS: The jejunostomy tube is seen entering the proximal mid jejunum in the left mid abdomen. Th ere is dilatation of the proximal jejunum and duodenum proximal to the jejunostomy tube, with maximal diameter of the dilated jejunum measuring 4.0 cm, consistent with ileus. There is also distention w ith large air-fluid level in the stomach consistent with gastric paresis. There is a small sliding h iatal hernia. The small bowel distal to the jejunostomy tube is of normal caliber in the colon is no rmal. There is no evidence of walled off abscess seen in the abdomen or pelvis. There is a small am ount of free peritoneal air seen at the anterior superior margin of the liver seen on images 18-20. There is also subcutaneous emphysema over the lower mid anterior abdominal wall and there is a small amount of free peritoneal air extending into the left inguinal canal.. There is also a small amount of fluid in the dependent pelvis. This should be correlated for iatrogenic introduction of air at t he time of jejunostomy tube placement. The liver, biliary tree, gallbladder, spleen, pancreas, adrenal glands, kidneys, abdominal aorta, and retroperitoneal structures are otherwise normal on noncontrast examination. IMPRESSION: 1. Placement of jejunostomy tube in the proximal jejunum with fluid-filled distention of the stomach, duodenum, and proximal jejunum proximal to the jejunostomy tube consistent with ileus, with normal caliber of small bowel distal to the jejunostomy tube and normal colon. 2. There is a small amount of free peritoneal air in the abdomen and subcutaneous emphysema over the anterior chest wall and a small amount of free air extending into the left inguinal canal, which shaggy uld be clinically correlated for iatrogenic air at the time of jejunostomy tube placement. Clinical correlation and follow-up will be required as clinically indicated. No walled off abscess is seen at this time. 3. Small amount of fluid in the dependent pelvis, without walled off abscess seen at this time. Clinical correlation and followup imaging may be warranted as clinically indicated. This report is being called to the facility at 12:15 AM on 07/30/17. There is calcified granuloma in the right middle lobe. There is minimal focal atelectasis or fibrosi s or infiltrate with pleural thickening at the left lung base. No pneumothorax is seen.
[2017-07-30] MEDS ORDERED: REGL10TA6 PO (01:00)
[2017-07-30 01:30] VITALS: BP 168/109
--- NOTE | 2017-07-30 07:23 | ED PDOC ---
Post-Departure Follow-Up radiology report faxed to Wendy Bailon MD Jul 30, 2017 07:23
== END 2017-07-30 01:50 | disposition home or self-care (01) ==
LOC: EDBD 22:16 → M ED 22:16
DX: R11.2 Nausea with vomiting, unspecified (principal); Z85.01 Personal history of malignant neoplasm of esophagus; Z93.1 Gastrostomy status; Z87.891 Personal history of nicotine dependence; Z79.891 Long term (current) use of opiate analgesic; Z79.84 Long term (current) use of oral hypoglycemic drugs; Z88.0 Allergy status to penicillin; Z88.5 Allergy status to narcotic agent; Z91.041 Radiographic dye allergy status; Z91.018 Allergy to other foods
CPT/HCPCS: 74176; 80048; 80076; 83690; 85025; 93041; 96374; 99285; J2765

== ENCOUNTER → 2017-07-31 | Outpatient (CLI) | payer MEDICARE, MEDICAID ==
[~2017-07-31] MED LIST changes: +NEXI40GR; +PERC10TA26; +REGL10TA6 PO
--- NOTE | 2017-08-28 00:47 | ECWPNPC ---
PATIENT NAME: DELL MCCANN : 1960 GENDER: MALE VISIT DATE: 07/31/2017 DISCHARGE DATE: 07/31/17 0935 VISIT LOCKED DATE TIME: PHYSICIAN: SATYA SLAUGHTER RESOURCE: SATYA SLAUGHTER REASON FOR APPOINTMENT 1. FOLLOWUP HISTORY OF PRESENT ILLNESS HISTORY OF PRESENT ILLNESS: HERE FOR F/U AND MANAGEMENT OF CHRONIC LOW BACK PAIN AND BILAT. LEG PAIN.RATING PAIN VAS 7/10 .RECENT DIAGNOSIS OF ESOPHAGEAL CANCER.SUFFERING FROM ANTERIOR CHEST AND ESOPHAGUS PAIN..DISCUSSED MEDICINE AND TREATMENT OPTIONS.TRAMADOL CAUSES MIGRAINES AND CURRENT TYLENOL 500MG BID INEFFECTIVE.DESCRIBES PAIN ACHING AND SORE.USING PERCOCET 5/325 ONE TABLET PERIODICALLY FOR SEVERE PAIN AND USING THIS TID .STATES IT ISNT EFFECTIVE.BRINGS IN MEDICATION WHICH IS ACCURATE FOR WHAT WAS DISPENSED.DENIES ADVERSE SIDE EFFECTS. PAIN THE PATIENT DESCRIBES THE PAIN... THE PATIENT DESCRIBES THE PAIN... THE PATIENT DESCRIBES THE PAIN... THE PATIENT DESCRIBES THE PAIN... THE PATIENT DESCRIBES THE PAIN... THE PATIENT DESCRIBES THE PAIN... THE PATIENT DESCRIBES THE PAIN... THE PATIENT DESCRIBES THE PAIN... FALL RISK SCREENING: SCREENING :NO FALLS IN THE PAST YEAR CURRENT MEDICATIONS TAKING METOCLOPRAMIDE HCL 10 MG TABLET ORALLY EVERY 6 HOURS NEEDED TAKING NEXIUM 40 MG CAPSULE DELAYED RELEASE 1 CAPSULE ORALLY ONCE A DAY TAKING LANCET DEVICES - MISCELLANEOUS ICD:E11.9 _ FSBS TWICE DAILY TAKING LANCETS - MISCELLANEOUS ICD:E11.9 SUBCUTANEOUSLY FSBS TWICE DAILY TAKING SINGULAIR 10 MG TABLET 1 TABLET IN THE EVENING ORALLY ONCE A DAY TAKING BLOOD GLUCOSE TEST STRIP - STRIP ICD:E11.9 IN VITRO FSBS TWICE DAILY TAKING BLOOD GLUCOSE METER - KIT MONITOR ICD:E11.9 FSBS TWICE DAILY TAKING BLOOD PRESSURE MONITOR - DEVICE 1 MONITOR _DX:I10 DAILY TAKING FLONASE ALLERGY RELIEF 50 MCG/ACT SUSPENSION 1 SPRAY IN EACH NOSTRIL NASALLY ONCE A DAY TAKING SERTRALINE HCL 100 MG TABLET 1 1/2 TABS ORALLY ONCE A DAY TAKING VENTOLIN HFA 108 (90 BASE) MCG/ACT AEROSOL SOLUTION 2 PUFFS NEEDED INHALATION EVERY 4 HRS PRN TAKING METFORMIN HCL 500 MG TABLET 1 TAB ORALLY DAILY TAKING ATORVASTATIN CALCIUM 80 MG TABLET 1 TAB ORALLY DAILY TAKING BLOOD PRESSURE CUFF - MISCELLANEOUS DIRECTED _ DAILY TAKING CYCLOBENZAPRINE HCL 10 MG TABLET 1 TABLET ORALLY BEFORE BEDTIME TAKING POLYETH GLYC-PROPYLENE GLYC 1 PACKET ORALLY NEEDED TAKING PERCOCET 10-325 MG TABLET 1 TABLET NEEDED ORALLY FOUR TIMES DAILY NEEDED TAKING HYDROXYZINE HCL 50 MG TABLET 1 TABLET NEEDED ORALLY AT BED TIME TAKING BENAZEPRIL HCL 10 MG TABLET 1 TABLET ORALLY ONCE A DAY TAKING MAY HAVE - - TREAT AND FIT FOR RIGHT KNEE BRACE DX: M17.10 DAILY TAKING MAY HAVE - - TREAT AND FIT FOR LEFT KNEE BRACE DX: M17.10 DAILY TAKING NEBULIZER - DEVICE 1 DEVICE DX: J45.901 FOUR TIMES DAILY NEEDED TAKING NEBULIZER/TUBING/MOUTHPIECE - KIT 1 DX: J45.901 FOUR TIMES DAILY NEEDED TAKING TENS UNIT ELECTRO PADS - 1 ICD: M54.5 DAILY NEEDED TAKING TENS UNIT - 1 ICD: M47.817 DAILY NEEDED TAKING NEBULIZER - DEVICE 1 DX: J45.998 FOUR TIMES DAILY NEEDED TAKING ALBUTEROL SULFATE (2.5 MG/3ML) 0.083% NEBULIZATION SOLUTION 3 ML INHALATION FOUR TIMES DAILY NEEDED TAKING CLOBETASOL PROPIONATE 0.05 % SHAMPOO 1 APPLICATION TO SCALP EXTERNALLY TWICE DAILY TAKING CLOBETASOL PROPIONATE 0.05 % LOTION 1 APPLICATION TO AFFECTED AREA EXTERNALLY TWICE A DAY TAKING PRILOSEC 20 MG CAPSULE DELAYED RELEASE 1 CAP ORALLY ONCE A DAY TAKING ACETAMINOPHEN 500 MG TABLET 1 ORALLY BID TAKING ZYRTEC 10 MG TABLET 1 TABLET ORALLY ONCE A DAY TAKING TESSALON PERLES 100 MG CAPSULE 1 CAPSULE NEEDED ORALLY THREE TIMES A DAY, NOTES: 12-16-16 0900 NOT-TAKING SUCRALFATE 1 GM/10ML SUSPENSION 10 ML ORALLY BEFORE MEALS NOT-TAKING SILDENAFIL CITRATE 50 MG TABLET 1 TABLET ORALLY 1 HOUR BEFORE DESIRED ACTIVITY NOT-TAKING OXYBUTYNIN CHLORIDE ER 10 MG TABLET EXTENDED RELEASE 24 HOUR 1 TABLET ORALLY ONCE A DAY NOT-TAKING PRILOSEC 40 MG CAPSULE DELAYED RELEASE 1 CAPSULE ONCE A DAY ORALLY 30 DAY(S) ORALLY ONCE A DAY NOT-TAKING BENADRYL ALLERGY 25 MG CAPSULE 1 CAPSULE NEEDED ORALLY 3 TIMES A DAY NEEDED MEDICATION LIST REVIEWED AND RECONCILED WITH THE PATIENT PAST MEDICAL HISTORY HYPERTENSION DIABETES 2 HYPERLIPIDEMIA CHRONIC BACK PAIN CHRONIC BILATERAL KNEE PAIN - "ARTHRITIS" DEPRESSION WITH SUICIDE ATTEMPT IN 2011 - [facility] STAY FOR 1 MONTH DIAGNOSED 06/2017 WITH ESOPHAGEAL CANCER OBSTRUCTIVE SLEEP APNEA ALLERGIES PENICILLIN V POTASSIUM: SWELLING: ALLERGY TRAMADOL HCL: MIGRAINES: SIDE EFFECTS PORK: FACIAL SWELLING: ALLERGY HAIR DYE: FACIAL SWELLING AND HEAD SORES: ALLERGY CATS: SNEEZING, ITCHY EYES: ALLERGY WET GRASS: SNEEZING, COUGHING: ALLERGY SURGICAL HISTORY STERIOD INJECTIONS LOWER BACK 2012 FEEDING TUBE PLACED JUL 28 2017 HOSPITALIZATION/MAJOR DIAGNOSTIC PROCEDURE FRACTURED RIBS 1977 REVIEW OF SYSTEMS REVIEWED BY: PROVIDER: SATYA HERNÁNDEZ . CONSTITUTIONAL: ANY CHANGE IN YOUR MEDICAL CONDITION? NO . CHILLS NO . FEVER NO . INFECTION: DO YOU HAVE NEW INFECTIONS? NO . DO YOU HAVE HISTORY OF MRSA? NO . MUSCULOSKELETAL: ANY NEW PATTERNS OF PAIN OR NUMBNESS? YES, IN THE ABDOMEN . GASTROENTEROLOGY: ANY NEW CHANGE IN BOWEL CONTROL? NO . GENITOURINARY: ANY NEW CHANGE IN BLADDER CONTROL? NO . IS THERE A CHANCE YOU COULD BE ? NO . HEMATOLOGY/LYMPH: DO YOU TAKE ANY BLOOD THINNERS? (FOR EXAMPLE- COUMADIN, PLAVIX, AGGRENOX, PLATEL, PRADAXA, OR XARELTO) NO . WHEN WAS YOUR LAST DOSE? DATE: TIME: . NEUROLOGY: HAVE YOU FALLEN IN THE PAST 6 MONTHS? NO . ANY NEW EXTREMITY NUMBNESS OR WEAKNESS? NO . CARDIOLOGY: DO YOU HAVE A PACEMAKER OR DEFIBRILLATOR? NO . RESPIRATORY: HAVE YOU BEEN SICK IN THE PAST WEEK? NO . FEVER NO . FLU LIKE SYMPTOMS? NO . COUGH NO . INTEGUMENTARY: DO YOU HAVE ANY RASHES OR OPEN SORES? NO . ALLERGIC/IMMUNO: ARE YOU ALLERGIC TO SHELLFISH OR IV DYE? NO . ANY NEW ALLERGIES? NO . PSYCHIATRIC: DO YOU HAVE THOUGHTS OF HURTING YOURSELF OR SOMEONE ELSE? NO . ARE YOU ABUSED, NEGLECTED, OR IN AN UNSAFE ENVIRONMENT? NO . ENDOCRINOLOGY: ARE YOU DIABETIC? YES . OTHER: DO YOU NEED ANY PRESCRIPTIONS? YES . IF YES, PLEASE LIST: ____ . ANY NEW PROBLEMS WITH YOUR MEDICATIONS? NO . WHEN DID YOU LAST EAT? ____ . WHEN DID YOU LAST DRINK? ____ . WHAT DID YOU LAST DRINK? ____ . NAME OF PERSON DRIVING YOU HOME? ____ . DO YOU HAVE ANY OTHER QUESTIONS OR CONCERNS NO . VITAL SIGNS WT 210 LBS, HT 71 IN, BMI 29.29 INDEX, BP 111/68 MM HG, HR 93 /MIN, RR 18 /MIN, TEMP 97.8 F, OXYGEN SAT % 96, SAFE IN ENV? (Y/N) Y, NA INITIALS MP, REVIEWED BY: NL. EXAMINATION GENERAL EXAMINATION: GENERAL APPEARANCE:COMFORTABLE. PSYCHAFFECT NORMAL. LUNGS:LUNG MCCANN ARE CLEAR TO AUSCULTATION BILATERALLY. GOOD MOVEMENT OF AIR. HEART:S1, S2 IN A REGULAR RATE AND RHYTHM. NO SIGNIFICANT MURMURS, RUBS OR GALLOPS NOTED. LUMBAR SPINE/LOWER BACK: PALPATION:PARASPINAL TENDERNESS, VERTEBRAL SPINE TENDERNESS.SPECIFIC POINT TENDERNESS OVER LEFT SIJ.. MOTOR SYSTEM:5/5 BLE. ASSESSMENTS LUMBAR FACET ARTHROPATHY - M12.88 (PRIMARY) CHRONIC PRESCRIPTION OPIATE USE - Z79.891 SACROILIAC JOINT PAIN - M53.3 TREATMENT LUMBAR FACET ARTHROPATHY REFILL PERCOCET TABLET, 10-325 MG, 1 TABLET NEEDED, ORALLY, Q8H PRN MDD3, 30 DAY(S), 90, REFILLS 0 NOTES: ISTOP REGISTRY [id number] RISKS AND BENEFITS OF NARCOTIC/OPIOD MEDICATIONS WERE REVIEWED WITH PATIENT - THIS INCLUDES BUT IS NOT LIMITED TO RISK OF DEPENDANCE/DEVELOPMENT OF ADDICTION, MOOD DISTURBANCE AND DEPRESSION, OSTEOPOROSIS, HORMONAL AND LABIDAL CHANGES, RESPIRATORY DEPRESSION AND . PATIENT IS ADVISED NOT TO DRIVE WHILE ON THESE MEDICATIONS, AND DEMNOSTRATES COMPLLIANCE. BRINGS IN MEDICATIONS WHICH IS APPROPRIATE FOR WHAT WAS DISPENSED. RECENT URINE TOXICOLOGY REVIEWED. NO UNAUTHORIZED MEDICATIONS. NO ILLICIT SUBSTANCES AND PRESCRIBED MEDICATIONS WERE PRESENT. PROCEDURE CODES FA211 ESTABILISHED PATIENT LOCATED WITHIN [facility] CHARGE DISPOSITION & COMMUNICATION FOLLOW UP 4 WEEKS ELECTRONICALLY SIGNED BY EDGAR RAMIREZ ON 08/27/2017 AT 01:38 PM EST DISCLAIMER : THIS IS A VISIT SUMMARY EXTRACTED FROM THE [employer] CHART. IT IS NOT A COPY OF THE [employer] PROGRESS NOTE. SHELBY
== END ==
LOC: M PAIN 08:45
PROVIDERS: ATTEND Nurse Practitioner Family
DX: M12.88 Other specific arthropathies, not elsewhere classified, other specified site (principal); Z79.891 Long term (current) use of opiate analgesic; M53.3 Sacrococcygeal disorders, not elsewhere classified; G89.29 Other chronic pain; I10 Essential (primary) hypertension; E11.9 Type 2 diabetes mellitus without complications; E78.5 Hyperlipidemia, unspecified; C15.9 Malignant neoplasm of esophagus, unspecified; R20.2 Paresthesia of skin; Z79.899 Other long term (current) drug therapy; Z79.84 Long term (current) use of oral hypoglycemic drugs; Z88.0 Allergy status to penicillin; Z88.8 Allergy status to other drugs, medicaments and biological substances; J30.81 Allergic rhinitis due to animal (cat) (dog) hair and dander; J30.1 Allergic rhinitis due to pollen; Z91.048 Other nonmedicinal substance allergy status; Z91.018 Allergy to other foods

== ENCOUNTER 2017-08-06 09:12 | Emergency (ER) | payer MEDICARE, MEDICAID ==
[~2017-08-06] VITALS: Ht 180.3 cm; Wt 89.0 kg
[2017-08-06] MEDS ORDERED: NS 1,000 ML IV ONE ×2 (09:30→13:30)
[2017-08-06 10:16] LABS: BASO % 0.3 % (0.0-1.0); EOS # 0.1 10^3/uL (0.0-0.50); EOS % 1.4 % (0.0-3.0); IMMATURE GRANULOCYTE % 0.4 % (0-0); LYMPH # 1.2 10^3/uL (1.5-4.5); LYMPH % 17.4 % (24.0-44.0); MEAN CORPUSCULAR HEMOGLOBIN 26.6 pg (27.0-33.0); MONO # 0.5 10^3/uL (0.0-0.8); MONO % 6.9 % (0.0-5.0); NEUTROPHILS # 5.2 10^3/uL (1.8-7.7); NEUTROPHILS % 73.6 % (36.0-66.0); PLATELET COUNT, AUTOMATED 254 10^3/uL (150-450); RED CELL DISTRIBUTION WIDTH 14.4 % (11.5-14.5)
[2017-08-06 10:43] LABS: ALBUMIN 3.4 GM/DL (3.2-5.2); ALBUMIN/GLOBULIN RATIO 0.97 (1.00-1.93); ALKALINE PHOSPHATASE 69 U/L (45-117); ALT/SGPT 29 U/L (12-78); AMYLASE 80 U/L (25-115); ANION GAP 7 MEQ/L (8-16); AST/SGOT 20 U/L (7-37); BILIRUBIN,DIRECT 0.2 MG/DL (0.0-0.2); BILIRUBIN,TOTAL 0.9 MG/DL (0.2-1.0); BLOOD UREA NITROGEN 23 MG/DL (7-18); CARBON DIOXIDE LEVEL 29 MEQ/L (21-32); CHLORIDE LEVEL 104 MEQ/L (98-107); GLOMERULAR FILTRATION RATE > 60.0 (>56); GLUCOSE, FASTING 125 MG/DL (70-105); POTASSIUM SERUM 3.7 MEQ/L (3.5-5.1); SODIUM LEVEL 140 MEQ/L (136-145); TOTAL PROTEIN 6.9 GM/DL (6.4-8.2)
[2017-08-06] MEDS ORDERED: ISOVUE-370 76% 100ML VIAL (Q9967) As Ordered ONE (11:16)
[2017-08-06] MEDS ORDERED: PERCOCET 5MG/325MG TAB PO ONE (12:15)
[2017-08-06] MEDS ORDERED: ALBUTEROL SULFATE 2.5 MG/0.5 ML INH NEB SOLN INH ONE (13:45)
[2017-08-06] MEDS ORDERED: IPRATROPIUM 0.5MG/ALBUTEROL 2.5MG INH SOL UD 3ML (DUONEB)(J7620) NEB ONE (13:45)
--- NOTE | 2017-08-06 14:32 | REP ---
CT abdomen and pelvis with IV but without oral contrast: History: Status post jejunostomy tube placement. Comparison CT study July 29, 2017. The patient gives a history of esophageal carcinoma. CT contrast dose: 100 ml of Isovue [address] findings: Digital building trades instructor radiograph demonstrates a dilated loop of jejunum in the upper quadrant on the left and a jejunostomy tube coiled in the left abdomen. Bowel gas pattern is otherwise normal. Axial CT images show that the lung bases are clear. The liver and the spleen are normal in size and homogeneous in texture. There are several celiac axis lymph nodes seen in the upper abdomen adjacent to the celiac artery branches. The largest of these two lymph nodes measure 1.5 x 0.9 and 1.5 x 1.3 cm. These are unchanged from July 03, 2017. On the prior study, the patient's jejunostomy tube appeared to have been doubled back upon itself within the lumen of the jejunum. This is no longer the case. The jejunostomy tube loops coils through an elongate segment of normal caliber jejunum. Proximal to the retention balloon however, the upper jejunum is mildly dilated, as is the duodenal C-loop. This is fluid and air filled up to 3.6 cm in transverse dimension. The distal small intestinal bowel loops are normal in caliber. There is left colonic diverticulosis without CT evidence of diverticulitis. On today's CT study, there is no evidence of free intraperitoneal air or abdominal wall air. No bony destructive lesion. Impression: 1. There are mildly to moderately dilated proximal jejunal loops up to the level of the retention balloon of the jejunostomy feeding tube. Feeding tube is in good position. No evidence of free air. 2. Celiac axis lymph nodes at the upper range of normal in size, unchanged from recent prior studies. 3. Left colonic diverticulosis without CT evidence of diverticulitis. Signed by Akbar Walker MD 08/06/2017 01:42 P
[2017-08-06 16:22] VITALS: BP 149/87
== END 2017-08-06 16:54 | disposition short-term general hospital (02) ==
LOC: M ED 09:12 → EDBD 09:12 → M ED 16:54
DX: R10.12 Left upper quadrant pain (principal); K94.23 Gastrostomy malfunction; E11.9 Type 2 diabetes mellitus without complications; Z79.899 Other long term (current) drug therapy; Z79.84 Long term (current) use of oral hypoglycemic drugs; Z88.0 Allergy status to penicillin; Z88.5 Allergy status to narcotic agent; Z91.018 Allergy to other foods; F17.210 Nicotine dependence, cigarettes, uncomplicated
CPT/HCPCS: 74177; 80048; 80076; 82150; 83690; 85025; 87040; 93041; 94640; 96360; 96361; 99285; Q9967

== ENCOUNTER 2017-08-09 09:00 | Outpatient (RCR) | payer MEDICARE, MEDICAID ==
--- NOTE | 2017-08-15 16:46 | RADONC ---
RADIATION ONCOLOGY PROGRESS NOTE DATE: 08/14/2017 CHART NUMBER: [id number]. PROGRESS NOTE: Mr. Friend is presently at a dose of 540 cGy to his GE junction and is tolerating treatments quite well at this point with no complaints related to his radiation therapy. He is having no difficulty. No increased difficulty swallowing or other problems at this time. The patient was discharged from the hospital and has had a adjustment of his feeding tube. He is having no problems at the present time. REVIEW OF SYSTEMS: The patient's review of systems is positive for some discomfort at the site of his feeding tube, but is otherwise generally noncontributory. Denies nausea, vomiting, fevers, chills, night sweats, diplopia, headaches, anxiety or depression, anorexia, weight loss, visual disturbances, chest pain, urinary or bowel difficulties, bone pain, or neurological problems. PHYSICAL EXAMINATION: The patient's skin is in good condition with no evidence of moist or dry desquamation. The remainder of his physical exam remains unchanged. Mr. Friend is tolerating his treatments quite well and radiation will continue as scheduled.
--- NOTE | 2017-08-21 09:12 | RADONC ---
RADIATION ONCOLOGY PROGRESS NOTE DATE: 08/21/2017 CHART #: [id number] Mr. Cutler is presently at dose of 1440 cGy to his GE junction is tolerating treatments quite well at this point with no complaints related to his radiation therapy. He is having no increased difficulty swallowing or other problems. He is having problems however with his feeding tube once again. He is scheduled to be seen in [place] later today for evaluation of the feeding tube. REVIEW OF SYSTEMS: Other than for continued problems with his feeding tube the patient is doing well with regards to his radiation treatments. Denies nausea, vomiting, fevers, chills, night sweats, diplopia, headaches, anxiety or depression, anorexia, weight loss, visual disturbances, chest pain, urinary or bowel difficulties, bone pain, or neurological problems. PHYSICAL EXAMINATION: The patient's skin is in good condition with no evidence of radiation change present. There is no moist or dry desquamation. The remainder of his physical exam remains unchanged. Mr. Friend is tolerating treatments quite well and radiation will continue as scheduled. His only problems appear to be with the feeding tube.
--- NOTE | 2017-08-28 15:47 | RADONC ---
RADIATION ONCOLOGY PROGRESS NOTE DATE: 08/28/2017 CHART NUMBER: [id number] Mr. Friend is presently at a dose of 2160 cGy to his GE junction and is tolerating treatments quite well at this point with no significant difficulties related to his radiation therapy. His feeding tube is still uncomfortable. REVIEW OF SYSTEMS: The patient's review of systems is positive for uncomfortable feeding tube, but is otherwise noncontributory. He denies nausea, vomiting, fevers, chills, night sweats, diplopia, headaches, anxiety or depression, anorexia, weight loss, visual disturbances, chest pain, urinary or bowel difficulties, bone pain or neurological problems. PHYSICAL EXAMINATION: The patient's skin is in good condition with no evidence of radiation change present. There is no moist or dry desquamation. The remainder of his physical exam remains unchanged. Mr. Friend is tolerating treatments quite well and radiation will continue as scheduled.
--- NOTE | 2017-09-04 09:45 | RADONC ---
RADIATION ONCOLOGY PROGRESS NOTE DATE: 09/04/2017 CHART NUMBER: [id number] Mr. Friend is presently at a dose of 2700 cGy to his esophagus and is tolerating his treatments fairly well with no significant difficulties related to his radiation therapy other than some esophagitis. The patient to review of systems is positive for some esophagitis with discomfort upon swallowing but is otherwise generally noncontributory. He denies nausea, vomiting, fevers, chills, night sweats, diplopia, headaches, anxiety or depression, anorexia, weight loss, visual disturbances, chest pain, urinary or bowel difficulties, bone pain, or neurological problems. PHYSICAL EXAMINATION: The patient has lost one pound over the past week. His skin is in good condition with no evidence of moist or dry desquamation. The remainder of his physical exam remains unchanged. The patient is continuing to eat and has not been using his feeding tube. He is overall tolerating his treatments fairly well and radiation will continue as scheduled.
== END 2017-09-07 ==
LOC: M ONCR 09:00
PROVIDERS: ATTEND Radiology Radiation Oncology
DX: C15.5 Malignant neoplasm of lower third of esophagus (principal)

== ENCOUNTER → 2017-09-04 | Outpatient (CLI) | payer MEDICARE, MEDICAID ==
[~2017-09-04] MED LIST changes: +PRIL20CA9 PO
--- NOTE | 2017-09-21 00:41 | ECWPNPC ---
PATIENT NAME: DELL MCCANN : 1960 GENDER: MALE VISIT DATE: 09/04/2017 DISCHARGE DATE: 09/04/17 1621 VISIT LOCKED DATE TIME: PHYSICIAN: SATYA SLAUGHTER RESOURCE: SATYA SLAUGHTER REASON FOR APPOINTMENT 1. BACK HISTORY OF PRESENT ILLNESS HISTORY OF PRESENT ILLNESS: HERE FOR F/U AND MANAGEMENT OF CHRONIC LOW BACK PAIN AND BILAT. LEG PAIN.RATING PAIN VAS 7/10 .HAS ESOPHAGEAL CANCER. UNDER TREATMENT WITH CHEMO AND RADIATION.SUFFERING FROM ANTERIOR CHEST AND ESOPHAGUS PAIN..DISCUSSED MEDICINE AND TREATMENT OPTIONS.TRAMADOL CAUSES MIGRAINES AND CURRENT TYLENOL 500MG BID INEFFECTIVE.DESCRIBES PAIN ACHING AND SORE.USING PERCOCET 10/325 ONE TABLET PERIODICALLY FOR SEVERE PAIN AND USING THIS Q8H PRN WHICH IS AN INCREASED DOSE FROM LAST VISIT AND THIS IS MORE EFFECTIVE. BRINGS IN MEDICATION WHICH IS ACCURATE FOR WHAT WAS DISPENSED.DENIES ADVERSE SIDE EFFECTS. PAIN THE PATIENT DESCRIBES THE PAIN... THE PATIENT DESCRIBES THE PAIN... THE PATIENT DESCRIBES THE PAIN... THE PATIENT DESCRIBES THE PAIN... THE PATIENT DESCRIBES THE PAIN... THE PATIENT DESCRIBES THE PAIN... THE PATIENT DESCRIBES THE PAIN... THE PATIENT DESCRIBES THE PAIN... THE PATIENT DESCRIBES THE PAIN... FALL RISK SCREENING: SCREENING :NO FALLS IN THE PAST YEAR CURRENT MEDICATIONS TAKING METOCLOPRAMIDE HCL 10 MG TABLET ORALLY EVERY 6 HOURS NEEDED TAKING NEXIUM 40 MG CAPSULE DELAYED RELEASE 1 CAPSULE ORALLY ONCE A DAY TAKING LANCET DEVICES - MISCELLANEOUS ICD:E11.9 _ FSBS TWICE DAILY TAKING LANCETS - MISCELLANEOUS ICD:E11.9 SUBCUTANEOUSLY FSBS TWICE DAILY TAKING BLOOD GLUCOSE TEST STRIP - STRIP ICD:E11.9 IN VITRO FSBS TWICE DAILY TAKING BLOOD GLUCOSE METER - KIT MONITOR ICD:E11.9 FSBS TWICE DAILY TAKING BLOOD PRESSURE MONITOR - DEVICE 1 MONITOR _DX:I10 DAILY TAKING FLONASE ALLERGY RELIEF 50 MCG/ACT SUSPENSION 1 SPRAY IN EACH NOSTRIL NASALLY ONCE A DAY TAKING VENTOLIN HFA 108 (90 BASE) MCG/ACT AEROSOL SOLUTION 2 PUFFS NEEDED INHALATION EVERY 4 HRS PRN TAKING METFORMIN HCL 500 MG TABLET 1 TAB ORALLY DAILY TAKING ATORVASTATIN CALCIUM 80 MG TABLET 1 TAB ORALLY DAILY TAKING BLOOD PRESSURE CUFF - MISCELLANEOUS DIRECTED _ DAILY TAKING POLYETH GLYC-PROPYLENE GLYC 1 PACKET ORALLY NEEDED TAKING HYDROXYZINE HCL 50 MG TABLET 1 TABLET NEEDED ORALLY AT BED TIME TAKING BENAZEPRIL HCL 10 MG TABLET 1 TABLET ORALLY ONCE A DAY TAKING MAY HAVE - - TREAT AND FIT FOR RIGHT KNEE BRACE DX: M17.10 DAILY TAKING MAY HAVE - - TREAT AND FIT FOR LEFT KNEE BRACE DX: M17.10 DAILY TAKING NEBULIZER - DEVICE 1 DEVICE DX: J45.901 FOUR TIMES DAILY NEEDED TAKING NEBULIZER/TUBING/MOUTHPIECE - KIT 1 DX: J45.901 FOUR TIMES DAILY NEEDED TAKING NEBULIZER - DEVICE 1 DX: J45.998 FOUR TIMES DAILY NEEDED TAKING ALBUTEROL SULFATE (2.5 MG/3ML) 0.083% NEBULIZATION SOLUTION 3 ML INHALATION FOUR TIMES DAILY NEEDED TAKING ENSURE ENLIVE - LIQUID 1, STRAW[place]ERRY FLAVOR ORALLY TID MEDICARE#[id number] MEDICAID#[id number], NOTES: [facility] TAKING ACETAMINOPHEN 500 MG TABLET 1 ORALLY BID PRN TAKING ENSURE ENLIVE - LIQUID 1, VANILLA FLAVOR ORALLY TID MEDICARE#[id number] MEDICAID#[id number], NOTES: LINCARE TAKING PERCOCET 10-325 MG TABLET 1 TABLET NEEDED ORALLY Q8H PRN MDD3 TAKING CYCLOBENZAPRINE HCL 10 MG TABLET 1 TABLET ORALLY BEFORE BEDTIME TAKING OXYBUTYNIN CHLORIDE ER 10 MG TABLET EXTENDED RELEASE 24 HOUR 1 TABLET ORALLY ONCE A DAY NOT-TAKING TENS UNIT ELECTRO PADS - 1 ICD: M54.5 DAILY NEEDED, NOTES: HASN'T GOTTEN YET NOT-TAKING TENS UNIT - 1 ICD: M47.817 DAILY NEEDED NOT-TAKING CLOBETASOL PROPIONATE 0.05 % SHAMPOO 1 APPLICATION TO SCALP EXTERNALLY TWICE DAILY NOT-TAKING CLOBETASOL PROPIONATE 0.05 % LOTION 1 APPLICATION TO AFFECTED AREA EXTERNALLY TWICE A DAY DISCONTINUED SINGULAIR 10 MG TABLET 1 TABLET IN THE EVENING ORALLY ONCE A DAY DISCONTINUED SERTRALINE HCL 100 MG TABLET 1 1/2 TABS ORALLY ONCE A DAY DISCONTINUED PRILOSEC 20 MG CAPSULE DELAYED RELEASE 1 CAP ORALLY ONCE A DAY DISCONTINUED ZYRTEC 10 MG TABLET 1 TABLET ORALLY ONCE A DAY DISCONTINUED TESSALON PERLES 100 MG CAPSULE 1 CAPSULE NEEDED ORALLY THREE TIMES A DAY DISCONTINUED SUCRALFATE 1 GM/10ML SUSPENSION 10 ML ORALLY BEFORE MEALS DISCONTINUED SILDENAFIL CITRATE 50 MG TABLET 1 TABLET ORALLY 1 HOUR BEFORE DESIRED ACTIVITY DISCONTINUED PRILOSEC 40 MG CAPSULE DELAYED RELEASE 1 CAPSULE ONCE A DAY ORALLY 30 DAY(S) ORALLY ONCE A DAY DISCONTINUED BENADRYL ALLERGY 25 MG CAPSULE 1 CAPSULE NEEDED ORALLY 3 TIMES A DAY NEEDED MEDICATION LIST REVIEWED AND RECONCILED WITH THE PATIENT PAST MEDICAL HISTORY HYPERTENSION DIABETES 2 HYPERLIPIDEMIA CHRONIC BACK PAIN CHRONIC BILATERAL KNEE PAIN - "ARTHRITIS" DEPRESSION WITH SUICIDE ATTEMPT IN 2011 - [facility] STAY FOR 1 MONTH DIAGNOSED 06/2017 WITH ESOPHAGEAL CANCER OBSTRUCTIVE SLEEP APNEA ALLERGIES PENICILLIN V POTASSIUM: SWELLING: ALLERGY TRAMADOL HCL: MIGRAINES: SIDE EFFECTS PORK: FACIAL SWELLING: ALLERGY HAIR DYE: FACIAL SWELLING AND HEAD SORES: ALLERGY CATS: SNEEZING, ITCHY EYES: ALLERGY WET GRASS: SNEEZING, COUGHING: ALLERGY SOCIAL HISTORY GENERAL: TOBACCO USE ARE YOU A:FORMER SMOKER HOW LONG HAS IT BEEN SINCE YOU LAST SMOKED? 2 1/2 MONTHS AGO BMI CARE GOAL FOLLOW-UP ABOVE NORMAL BMI FOLLOW-UPLIFESTYLE EDUCATION REGARDING DIET ALCOHOL SCREENING DID YOU HAVE A DRINK CONTAINING ALCOHOL IN THE PAST YEAR?NO POINTS0 INTERPRETATIONNEGATIVE RECREATIONAL DRUG USE DRUG USE?NO CAFFEINE CAFFEINE USE?YES HOW OFTEN AND HOW MUCH? 1-2 CUPS/WEEK OCCUPATION: UNEMPLOYED. DIET: REGULAR. EXERCISE: NO REGULAR EXERCISE. MARITAL STATUS: . OTHERS AT HOME: NONE. PETS: NONE. 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 LEARNING BARRIERS / SPECIAL NEEDS CHANGE FROM LAST VISIT?YES BARRIERS TO LEARNING?NO HEARING IMPAIRED?NO VISION IMPAIRED?NO COGNITIVELY IMPAIRED?NO READINESS TO LEARN?YES LEARNING PREFERENCES?NO LEARNING CAPABILITIES PRESENT?YES EMOTIONAL BARRIERS?NO SPECIAL DEVICES?NO REAL TIME OPERATOR NEEDED?NO NEW PATIENT PAIN DIARY TODAY'S VISIT NOTES, FROM 0-10, WHAT LEVEL IS YOUR PAIN TODAY? 0. PAIN CLINIC PFS, CLERGY, PUBLIC HEALTH REFERRALS PFS REFERRAL NEEDED?NO CLERGY REFERRAL NEEDED?NO PUBLIC HEALTH REFERRAL NEEDED?NO HAS THE PATIENT BEEN EDUCATED REGARDING HIS/HER PLAN OF CARE?YES HAS THE PATIENT BEEN EDUCATED REGARDING PAIN, THE RISK FOR PAIN, THE IMPORTANCE OF EFFECTIVE PAIN MANAGEMENT, AND THE PAIN ASSESSMENT PROCESS?YES ADVANCE DIRECTIVES HEALTH CARE PROXY?YES NAME OF HCP DYAN BHATIA--[facility]STER CONTACT # FOR HCP [phone] DO YOU HAVE A COPY WITH YOU?NO DO YOU HAVE A DNR?NO WOULD YOU LIKE MORE INFORMATION?NO LIVING WILL?NO WOULD YOU LIKE MORE INFORMATION?NO POWER OF ICE CREAM SCOOPER?NO WOULD YOU LIKE MORE INFORMATION?NO DOMESTIC VIOLENCE DO YOU FEEL SAFE IN YOUR ENVIRONMENT?YES REVIEW OF SYSTEMS REVIEWED BY: PROVIDER: SATYA HERNÁNDEZ . CONSTITUTIONAL: ANY CHANGE IN YOUR MEDICAL CONDITION? NO . CHILLS NO . FEVER NO . INFECTION: DO YOU HAVE NEW INFECTIONS? NO . DO YOU HAVE HISTORY OF MRSA? NO . MUSCULOSKELETAL: ANY NEW PATTERNS OF PAIN OR NUMBNESS? NEW PAIN IN SHOULDER BLADES AND CHEST--RELATED TO ESOPHAGEAL CANCER . GASTROENTEROLOGY: ANY NEW CHANGE IN BOWEL CONTROL? YES, HURTS TO HAVE A BM--THINKS IT CAN BE RELATED TO FEEDING TUBE PLACEMENT . GENITOURINARY: ANY NEW CHANGE IN BLADDER CONTROL? NO . IS THERE A CHANCE YOU COULD BE ? NO . HEMATOLOGY/LYMPH: DO YOU TAKE ANY BLOOD THINNERS? (FOR EXAMPLE- COUMADIN, PLAVIX, AGGRENOX, PLATEL, PRADAXA, OR XARELTO) NO . WHEN WAS YOUR LAST DOSE? DATE: TIME: . NEUROLOGY: HAVE YOU FALLEN IN THE PAST 6 MONTHS? NO . ANY NEW EXTREMITY NUMBNESS OR WEAKNESS? NO . CARDIOLOGY: DO YOU HAVE A PACEMAKER OR DEFIBRILLATOR? NO . RESPIRATORY: HAVE YOU BEEN SICK IN THE PAST WEEK? NO . FEVER NO . FLU LIKE SYMPTOMS? NO . COUGH NO . INTEGUMENTARY: DO YOU HAVE ANY RASHES OR OPEN SORES? NO . ALLERGIC/IMMUNO: ARE YOU ALLERGIC TO SHELLFISH OR IV DYE? NO . ANY NEW ALLERGIES? NO . PSYCHIATRIC: DO YOU HAVE THOUGHTS OF HURTING YOURSELF OR SOMEONE ELSE? NO . ARE YOU ABUSED, NEGLECTED, OR IN AN UNSAFE ENVIRONMENT? NO . ENDOCRINOLOGY: ARE YOU DIABETIC? NO . OTHER: DO YOU NEED ANY PRESCRIPTIONS? YES . IF YES, PLEASE LIST: OXYCODONE, CYCLOBENZAPRINE . ANY NEW PROBLEMS WITH YOUR MEDICATIONS? NO . WHEN DID YOU LAST EAT? ____ . WHEN DID YOU LAST DRINK? ____ . WHAT DID YOU LAST DRINK? ____ . NAME OF PERSON DRIVING YOU HOME? ____ . DO YOU HAVE ANY OTHER QUESTIONS OR CONCERNS NO . VITAL SIGNS WT 194.4 LBS, HT 71 IN, BMI 27.11 INDEX, BP 123/82 MM HG, HR 88 /MIN, RR 18 /MIN, TEMP 98.7 F, OXYGEN SAT % 99%, SAFE IN ENV? (Y/N) Y, NA INITIALS SC 15:10, REVIEWED BY: AD. EXAMINATION GENERAL EXAMINATION: GENERAL APPEARANCE:COMFORTABLE. PSYCHAFFECT NORMAL. LUNGS:LUNG MCCANN ARE CLEAR TO AUSCULTATION BILATERALLY. GOOD MOVEMENT OF AIR. HEART:S1, S2 IN A REGULAR RATE AND RHYTHM. NO SIGNIFICANT MURMURS, RUBS OR GALLOPS NOTED. LUMBAR SPINE/LOWER BACK: PALPATION:PARASPINAL TENDERNESS, VERTEBRAL SPINE TENDERNESS.SPECIFIC POINT TENDERNESS OVER LEFT SIJ.. MOTOR SYSTEM:5/5 BLE. ASSESSMENTS LUMBAR FACET ARTHROPATHY - M12.88 (PRIMARY) CHRONIC PRESCRIPTION OPIATE USE - Z79.891 SACROILIAC JOINT PAIN - M53.3 TREATMENT LUMBAR FACET ARTHROPATHY REFILL PERCOCET TABLET, 10-325 MG, 1 TABLET NEEDED, ORALLY, Q8H PRN MDD3, 30 DAY(S), 90, REFILLS 0 CONTINUE CYCLOBENZAPRINE HCL TABLET, 10 MG, 1 TABLET, ORALLY, BEFORE BEDTIME NOTES: ISTOP REGISTRY REVIEWED [id number] AND DEMNOSTRATES COMPLLIANCE. BRINGS IN MEDICATIONS WHICH IS APPROPRIATE FOR WHAT WAS DISPENSED. RECENT URINE TOXICOLOGY REVIEWED. NO UNAUTHORIZED MEDICATIONS. NO ILLICIT SUBSTANCES AND PRESCRIBED MEDICATIONS WERE PRESENT. URINE TOX TODAY. PROCEDURE CODES FA211 ESTABILISHED PATIENT [facility] FACILITY CHARGE G8730 PAIN ASSESS POS TOOL F/U PLAN DOC [id number] DOC MEDS VERIFIED W/PT OR RE DISPOSITION & COMMUNICATION FOLLOW UP 2 MONTHS ELECTRONICALLY SIGNED BY EDGAR RAMIREZ ON 09/18/2017 AT 05:11 PM EST DISCLAIMER : THIS IS A VISIT SUMMARY EXTRACTED FROM THE [employer] CHART. IT IS NOT A COPY OF THE [employer] PROGRESS NOTE. SHELBY
== END ==
LOC: M PAIN 14:30
PROVIDERS: ATTEND Nurse Practitioner Family
DX: M12.88 Other specific arthropathies, not elsewhere classified, other specified site (principal); Z79.891 Long term (current) use of opiate analgesic; M53.3 Sacrococcygeal disorders, not elsewhere classified; G89.29 Other chronic pain; C15.9 Malignant neoplasm of esophagus, unspecified; Z79.899 Other long term (current) drug therapy; Z79.84 Long term (current) use of oral hypoglycemic drugs; I10 Essential (primary) hypertension; E11.9 Type 2 diabetes mellitus without complications

== ENCOUNTER 2017-09-08 13:54 | Outpatient (RCR) | payer MEDICARE, MEDICAID | END 2017-10-08 | LOC: M ONCR 13:54 | DX: C15.5 Malignant neoplasm of lower third of esophagus (principal) | CPT/HCPCS: 77300 ==

== ENCOUNTER → 2017-10-30 | Outpatient (REF) | payer MEDICARE, MEDICAID ==
[2017-10-31 08:59] LABS: CARCINOEMBRYONIC ANTIGEN 8.6 NG/ML (<2.5)
== END ==
LOC: M LAB REF 13:12
DX: M54.5 Low back pain (principal); C15.9 Malignant neoplasm of esophagus, unspecified
CPT/HCPCS: 82378

== ENCOUNTER → 2017-11-22 | Outpatient (CLI) | payer MEDICARE | LOC: M ONCR 15:14 | DX: C15.5 Malignant neoplasm of lower third of esophagus (principal) | CPT/HCPCS: G0463 ==

== ENCOUNTER → 2017-11-30 | Outpatient (CLI) | payer MEDICARE, MEDICAID | LOC: M PAIN 08:45 | DX: M12.88 Other specific arthropathies, not elsewhere classified, other specified site (principal); I10 Essential (primary) hypertension; E11.9 Type 2 diabetes mellitus without complications; E78.5 Hyperlipidemia, unspecified; F32.9 Major depressive disorder, single episode, unspecified; G47.33 Obstructive sleep apnea (adult) (pediatric); Z79.891 Long term (current) use of opiate analgesic; J30.2 Other seasonal allergic rhinitis; Z79.84 Long term (current) use of oral hypoglycemic drugs; Z79.899 Other long term (current) drug therapy; Z88.0 Allergy status to penicillin; Z88.5 Allergy status to narcotic agent; Z91.018 Allergy to other foods; Z91.048 Other nonmedicinal substance allergy status; Z85.01 Personal history of malignant neoplasm of esophagus; Z87.891 Personal history of nicotine dependence; C15.9 Malignant neoplasm of esophagus, unspecified; M54.5 Low back pain; J45.998 Other asthma; K21.9 Gastro-esophageal reflux disease without esophagitis | CPT/HCPCS: G0463 ==

== ENCOUNTER → 2017-12-11 | Outpatient (REF) | payer MEDICARE, MEDICAID ==
[2017-12-12 11:19] LABS: CARCINOEMBRYONIC ANTIGEN 10.7 NG/ML (<2.5)
== END ==
LOC: M LAB REF 13:36
DX: C15.9 Malignant neoplasm of esophagus, unspecified (principal)
CPT/HCPCS: 82378

== ENCOUNTER → 2017-12-20 | Outpatient (CLI) | payer MEDICARE, MEDICAID ==
[~2017-12-20] MED LIST changes: -ALBU17IN INH; -AMLO2.5C PO; -AMLOD/BENAZP; -ATOR80TA59; -ATOR80TA59 PO; -CYCL10TA PO; -DICL75TA; -DITR1TAB PO; -FLON1SPR; +GASTROGRAFIN SOLUTION 30ML (Q9963) As Ordered; -IBUP1TAB6 PO; -IBUP80TA PO; +ISOVUE-370 76% 100ML VIAL (Q9967) As Ordered; -MAPA500C PO; -METF500T13; -METF500T13 PO; -NEXI40GR; -OMEP40CA2 PO; -OXYB10TA PO; -OXYC1TAB23 PO; -OXYCOD/APAP; -PERC10TA26; -PRIL20CA9 PO; -REGL10TA6 PO; -SERT-138 PO; -SERT-155 PO; -SERT50TA; -SERT50TA PO; -SUCR1SUS PO; -TESS100C PO; -TYLE500T78 PO
== END ==
LOC: M RAD 08:11
DX: C15.9 Malignant neoplasm of esophagus, unspecified (principal); C78.00 Secondary malignant neoplasm of unspecified lung; R91.8 Other nonspecific abnormal finding of lung field
CPT/HCPCS: Q9963

== ENCOUNTER → 2018-01-05 | Outpatient (REF) | payer MEDICARE, MEDICAID ==
[2018-01-05 16:08] LABS: BASO % 0.2 % (0.0-1.0); EOS # 0.1 10^3/uL (0.0-0.50); EOS % 2.3 % (0.0-3.0); HEMATOCRIT 32.9 % (42.0-52.0); HEMOGLOBIN 10.8 g/dl (13.5-17.5); IMMATURE GRANULOCYTE % 0.5 % (0-3.0); LYMPH # 1.2 10^3/uL (1.5-4.5); LYMPH % 28.1 % (24.0-44.0); MEAN CORPUSCULAR HEMOGLOBIN 28.7 pg (27.0-33.0); MEAN CORPUSCULAR HGB CONC 32.8 g/dl (32.0-36.5); MEAN CORPUSCULAR VOLUME 87.5 fl (80.0-96.0); MONO # 1.3 10^3/uL (0.0-0.8); MONO % 29.5 % (0.0-5.0); NEUTROPHILS # 1.7 10^3/uL (1.8-7.7); NEUTROPHILS % 39.4 % (36.0-66.0); RED BLOOD COUNT 3.76 10^6/uL (4.30-6.10); RED CELL DISTRIBUTION WIDTH 19.5 % (11.5-14.5); WHITE BLOOD COUNT 4.4 10^3/uL (4.0-10.0)
[2018-01-05 16:27] LABS: MALB URINE SIEMENS 34.4 MG/L; MAU/CREAT RATIO 8.9 MCG/MG (0.0-30.0)
[2018-01-05 16:36] LABS: ESTIMATED AVERAGE GLUCOSE 137 MG/DL (60-110); HEMOGLOBIN A1c 6.4 %
[2018-01-05 16:41] LABS: ALBUMIN 3.3 GM/DL (3.2-5.2); ALBUMIN/GLOBULIN RATIO 0.83 (1.00-1.93); ALKALINE PHOSPHATASE 108 U/L (45-117); ALT/SGPT 34 U/L (12-78); ANION GAP 5 MEQ/L (8-16); AST/SGOT 35 U/L (7-37); BILIRUBIN,TOTAL 0.4 MG/DL (0.2-1.0); BLOOD UREA NITROGEN 13 MG/DL (7-18); CALCIUM LEVEL 9.2 MG/DL (8.5-10.1); CARBON DIOXIDE LEVEL 29 MEQ/L (21-32); CHLORIDE LEVEL 107 MEQ/L (98-107); CHOLESTEROL LEVEL 251 MG/DL (<200); CHOLESTEROL RISK RATIO 3.984 (<5); CREATININE FOR GFR 0.93 MG/DL (0.70-1.30); GLOMERULAR FILTRATION RATE > 60.0 (>56); GLUCOSE, FASTING 89 MG/DL (70-100); HDL CHOLESTEROL 63 MG/DL (>40); LDL CHOLESTEROL 133.2 MG/DL (<100); NON-HDL-C 188 MG/DL; POTASSIUM SERUM 3.9 MEQ/L (3.5-5.1); SODIUM LEVEL 141 MEQ/L (136-145); TOTAL PROTEIN 7.3 GM/DL (6.4-8.2); TRIGLYCERIDES LEVEL 274 MG/DL (<150)
[2018-01-05 17:22] LABS: PLATELET COUNT, AUTOMATED 71 10^3/uL (150-450)
[2018-01-05 17:23] LABS: ADD MORPHOLOGY? YES
[2018-01-05 17:24] LABS: ANISOCYTOSIS 4+; HYPOCHROMASIA 1+; MICROCYTOSIS 1+; PLATELET ESTIMATE DECREASED (NORMAL); SCHISTOCYTES 1+
[2018-01-05 17:25] LABS: IMMATURE PLATELET FRACTION % 4.1 % (0.0-10.9)
== END ==
LOC: M SFHCPLAZ 14:38
DX: E11.22 Type 2 diabetes mellitus with diabetic chronic kidney disease (principal); E78.5 Hyperlipidemia, unspecified; I10 Essential (primary) hypertension
CPT/HCPCS: 80053

== ENCOUNTER → 2018-02-01 | Outpatient (CLI) | payer MEDICARE, MEDICAID | LOC: M PAIN 08:30 | DX: G89.29 Other chronic pain (principal); M54.5 Low back pain; I10 Essential (primary) hypertension; E11.42 Type 2 diabetes mellitus with diabetic polyneuropathy; E78.5 Hyperlipidemia, unspecified; M17.0 Bilateral primary osteoarthritis of knee; J30.81 Allergic rhinitis due to animal (cat) (dog) hair and dander; J30.1 Allergic rhinitis due to pollen; F32.9 Major depressive disorder, single episode, unspecified; G47.33 Obstructive sleep apnea (adult) (pediatric); Z87.891 Personal history of nicotine dependence; Z88.0 Allergy status to penicillin; Z88.5 Allergy status to narcotic agent; Z91.018 Allergy to other foods; Z91.048 Other nonmedicinal substance allergy status; Z91.5 Personal history of self-harm; Z79.84 Long term (current) use of oral hypoglycemic drugs; Z79.899 Other long term (current) drug therapy | CPT/HCPCS: G0463 ==

== ENCOUNTER → 2018-02-20 | Outpatient (REF) | payer MEDICARE, MEDICAID ==
[2018-02-20 14:01] LABS: CARCINOEMBRYONIC ANTIGEN 13.2 NG/ML (<2.5)
== END ==
LOC: M LAB REF 13:25
DX: C15.5 Malignant neoplasm of lower third of esophagus (principal)
CPT/HCPCS: 82378

== ENCOUNTER → 2018-03-13 | Outpatient (CLI) | payer MEDICARE, MEDICAID | LOC: M RAD 07:50 | DX: C15.5 Malignant neoplasm of lower third of esophagus (principal); C78.00 Secondary malignant neoplasm of unspecified lung; J98.11 Atelectasis | CPT/HCPCS: Q9963 ==

== ENCOUNTER → 2018-03-15 | Outpatient (CLI) | payer MEDICARE, MEDICAID | LOC: M PAIN 09:00 | DX: G89.29 Other chronic pain (principal); M54.5 Low back pain; G62.9 Polyneuropathy, unspecified; M46.56 Other infective spondylopathies, lumbar region; I10 Essential (primary) hypertension; E11.9 Type 2 diabetes mellitus without complications; E78.5 Hyperlipidemia, unspecified; M17.0 Bilateral primary osteoarthritis of knee; G47.33 Obstructive sleep apnea (adult) (pediatric); J30.1 Allergic rhinitis due to pollen; C15.9 Malignant neoplasm of esophagus, unspecified; J30.81 Allergic rhinitis due to animal (cat) (dog) hair and dander; Z87.891 Personal history of nicotine dependence; Z79.84 Long term (current) use of oral hypoglycemic drugs; Z79.891 Long term (current) use of opiate analgesic; Z88.0 Allergy status to penicillin; Z88.5 Allergy status to narcotic agent; Z91.018 Allergy to other foods | CPT/HCPCS: G0463 ==

== ENCOUNTER → 2018-03-19 | Outpatient (REF) | payer MEDICARE, MEDICAID ==
[2018-03-20 08:28] LABS: CARCINOEMBRYONIC ANTIGEN 15.4 NG/ML (<2.5)
== END ==
LOC: M LAB REF 13:26
DX: C15.5 Malignant neoplasm of lower third of esophagus (principal)
CPT/HCPCS: 82378

== ENCOUNTER → 2018-04-03 | Outpatient (REF) | payer MEDICARE, MEDICAID | LOC: M LAB REF 11:13 | DX: C15.5 Malignant neoplasm of lower third of esophagus (principal) | CPT/HCPCS: 88300 ==

== ENCOUNTER → 2018-04-26 | Outpatient (CLI) | payer MEDICARE, MEDICAID, OTHER | LOC: M PAIN 08:30 | DX: M54.5 Low back pain (principal); G89.29 Other chronic pain; I10 Essential (primary) hypertension; E11.9 Type 2 diabetes mellitus without complications; E78.5 Hyperlipidemia, unspecified; M17.0 Bilateral primary osteoarthritis of knee; F32.9 Major depressive disorder, single episode, unspecified; G47.33 Obstructive sleep apnea (adult) (pediatric); J30.81 Allergic rhinitis due to animal (cat) (dog) hair and dander; J30.2 Other seasonal allergic rhinitis; Z79.84 Long term (current) use of oral hypoglycemic drugs; Z79.899 Other long term (current) drug therapy; Z88.0 Allergy status to penicillin; Z88.5 Allergy status to narcotic agent; Z91.018 Allergy to other foods; Z91.09 Other allergy status, other than to drugs and biological substances; Z85.01 Personal history of malignant neoplasm of esophagus; Z91.5 Personal history of self-harm; Z87.891 Personal history of nicotine dependence; Z91.81 History of falling | CPT/HCPCS: G0463 ==

== ENCOUNTER → 2018-05-01 | Outpatient (REF) | payer MEDICARE, MEDICAID, OTHER ==
[2018-05-01 14:12] LABS: CARCINOEMBRYONIC ANTIGEN 37.5 NG/ML (<2.5)
== END ==
LOC: M LAB REF 13:14
DX: C15.5 Malignant neoplasm of lower third of esophagus (principal)
CPT/HCPCS: 82378

== ENCOUNTER 2018-06-14 18:28 | Emergency (ER) | payer MEDICARE, MEDICAID, OTHER ==
[2018-06-14] MEDS: ONDANSETRON 4MG/2ML VIAL (J2405) IV (20:15)
[2018-06-14] MEDS: KETOROLAC 30 MG/ML VIAL (J1885) IV (20:16)
[2018-06-14] MEDS: HYDROMORPHONE HCL 0.5 MG/ 0.5 ML SYRINGE (J1170 PER 1) IV (20:19)
[2018-06-14] MEDS: METHOCARBAMOL 1,000 MG/10 ML VIAL (J2800) IV (20:38)
[2018-06-14 20:41] LABS: ANION GAP 8 MEQ/L (8-16); BLOOD UREA NITROGEN 15 MG/DL (7-18); CALCIUM LEVEL 8.9 MG/DL (8.5-10.1); CARBON DIOXIDE LEVEL 26 MEQ/L (21-32); CHLORIDE LEVEL 107 MEQ/L (98-107); CREATININE FOR GFR 1.05 MG/DL (0.70-1.30); GLOMERULAR FILTRATION RATE > 60.0 (>56); GLUCOSE, FASTING 104 MG/DL (70-100); POTASSIUM SERUM 4.3 MEQ/L (3.5-5.1); SODIUM LEVEL 141 MEQ/L (136-145)
== END 2018-06-14 23:26 | disposition home or self-care (01) ==
LOC: M ED 18:28
DX: C79.51 Secondary malignant neoplasm of bone (principal); G89.3 Neoplasm related pain (acute) (chronic); C15.9 Malignant neoplasm of esophagus, unspecified; G62.9 Polyneuropathy, unspecified; Z88.0 Allergy status to penicillin; Z88.5 Allergy status to narcotic agent; Z91.018 Allergy to other foods
CPT/HCPCS: J2405

== ENCOUNTER → 2018-06-25 | Outpatient (CLI) | payer MEDICARE, MEDICAID | LOC: M RAD 09:09 | DX: R07.89 Other chest pain (principal); M25.551 Pain in right hip; C15.9 Malignant neoplasm of esophagus, unspecified | CPT/HCPCS: 78306 ==

== ENCOUNTER → 2018-06-27 | Outpatient (CLI) | payer MEDICARE, MEDICAID | LOC: M PAIN 09:00 | DX: M54.5 Low back pain (principal); C41.9 Malignant neoplasm of bone and articular cartilage, unspecified; I10 Essential (primary) hypertension; E11.9 Type 2 diabetes mellitus without complications; E78.5 Hyperlipidemia, unspecified; F32.9 Major depressive disorder, single episode, unspecified; G47.30 Sleep apnea, unspecified; Z79.82 Long term (current) use of aspirin; Z79.84 Long term (current) use of oral hypoglycemic drugs; Z79.891 Long term (current) use of opiate analgesic; Z79.899 Other long term (current) drug therapy; Z87.891 Personal history of nicotine dependence; Z88.0 Allergy status to penicillin; Z88.8 Allergy status to other drugs, medicaments and biological substances; Z91.018 Allergy to other foods; Z91.048 Other nonmedicinal substance allergy status; J30.81 Allergic rhinitis due to animal (cat) (dog) hair and dander; J30.89 Other allergic rhinitis | CPT/HCPCS: G0463 ==

== ENCOUNTER → 2018-06-27 | Outpatient (CLI) | payer MEDICARE, MEDICAID ==
[2018-06-27 11:12] LABS: ANION GAP 7 MEQ/L (8-16); BLOOD UREA NITROGEN 17 MG/DL (7-18); CALCIUM LEVEL 9.5 MG/DL (8.5-10.1); CARBON DIOXIDE LEVEL 29 MEQ/L (21-32); CHLORIDE LEVEL 102 MEQ/L (98-107); CREATININE FOR GFR 1.05 MG/DL (0.70-1.30); GLOMERULAR FILTRATION RATE > 60.0 (>56); GLUCOSE, FASTING 133 MG/DL (70-100); MAGNESIUM LEVEL 2.7 MG/DL (1.8-2.4); SODIUM LEVEL 138 MEQ/L (136-145)
== END ==
LOC: M LAB 10:19
DX: M62.838 Other muscle spasm (principal)
CPT/HCPCS: 83735

== ENCOUNTER 2018-07-19 16:39 | Emergency (ER) | payer MEDICARE, MEDICAID ==
[2018-07-19] MEDS: HYDROMORPHONE HCL 0.5 MG/ 0.5 ML SYRINGE (J1170 PER 1) IV ×2 (17:37→18:49)
[2018-07-19 17:46] LABS: BASO % 0.4 % (0.0-1.0); EOS # 0.1 10^3/uL (0.0-0.50); EOS % 1.1 % (0.0-3.0); HEMATOCRIT 31.1 % (42.0-52.0); HEMOGLOBIN 10.4 g/dl (13.5-17.5); IMMATURE GRANULOCYTE % 0.4 % (0-3.0); MEAN CORPUSCULAR HEMOGLOBIN 28.3 pg (27.0-33.0); MEAN CORPUSCULAR HGB CONC 33.4 g/dl (32.0-36.5); MEAN CORPUSCULAR VOLUME 84.5 fl (80.0-96.0); MONO # 1.1 10^3/uL (0.0-0.8); MONO % 14.6 % (0.0-5.0); NEUTROPHILS # 5.3 10^3/uL (1.8-7.7); NEUTROPHILS % 70.5 % (36.0-66.0); PLATELET COUNT, AUTOMATED 185 10^3/uL (150-450); RED BLOOD COUNT 3.68 10^6/uL (4.30-6.10); RED CELL DISTRIBUTION WIDTH 15.1 % (11.5-14.5); WHITE BLOOD COUNT 7.5 10^3/uL (4.0-10.0)
[2018-07-19 18:47] LABS: ALBUMIN 1.5 GM/DL (3.2-5.2); ALBUMIN/GLOBULIN RATIO 0.24 (1.00-1.93); ALKALINE PHOSPHATASE 171 U/L (45-117); ALT/SGPT 39 U/L (12-78); ANION GAP 10 MEQ/L (8-16); AST/SGOT 36 U/L (7-37); BILIRUBIN,DIRECT 0.2 MG/DL (0.0-0.2); BILIRUBIN,TOTAL 0.6 MG/DL (0.2-1.0); BLOOD UREA NITROGEN 15 MG/DL (7-18); CALCIUM LEVEL 9.4 MG/DL (8.5-10.1); CARBON DIOXIDE LEVEL 28 MEQ/L (21-32); CHLORIDE LEVEL 100 MEQ/L (98-107); GLOMERULAR FILTRATION RATE > 60.0 (>56); GLUCOSE, FASTING 114 MG/DL (70-100); POTASSIUM SERUM 3.8 MEQ/L (3.5-5.1); SODIUM LEVEL 138 MEQ/L (136-145); TOTAL PROTEIN 7.7 GM/DL (6.4-8.2)
[2018-07-19] MEDS: HYDROmorphone 2 MG TAB PO (20:53)
== END 2018-07-19 21:04 | disposition home or self-care (01) ==
LOC: M ED 16:39
DX: C15.9 Malignant neoplasm of esophagus, unspecified (principal); C79.51 Secondary malignant neoplasm of bone; G62.0 Drug-induced polyneuropathy; Z88.0 Allergy status to penicillin; Z88.5 Allergy status to narcotic agent; Z91.018 Allergy to other foods
CPT/HCPCS: J1170

== ENCOUNTER 2018-07-20 11:56 | Observation (INO) | payer MEDICARE, MEDICAID ==
[2018-07-20] MEDS: HYDROmorphone 2 MG TAB PO ×2 (12:26→14:05)
[2018-07-20] MEDS: diazePAM 5 MG TAB PO (12:47)
[2018-07-20] MEDS ORDERED: BISACODYL 10 MG SUPP PR (18:00)
[2018-07-20] MEDS ORDERED: ALBUTEROL 90 MCG/ACT 8GM HFA INHALER INH (18:15)
[2018-07-20] MEDS ORDERED: METHOCARBAMOL 500 MG TAB PO (18:15)
[2018-07-20] MEDS ORDERED: METOCLOPRAMIDE 10 MG TAB PO (18:15)
[2018-07-20] MEDS ORDERED: RAMELTEON 8 MG TAB (ROZEREM) PO (18:15)
[2018-07-20] MEDS: oxyCODONE 5MG TAB PO (18:30)
[2018-07-20] MEDS ORDERED: DEXTROSE 50% 50 ML SYRINGE IV (18:45)
[2018-07-20] MEDS ORDERED: GLUCAGON FOR INJ 1 MG VIAL (J1610) SC (18:45)
[2018-07-20] MEDS ORDERED: MORPHINE 4 MG/ML 1ML VIAL/SYRINGE (J2270) IV (18:45)
[2018-07-20] MEDS ORDERED: GLUCOSE 4 GM CHEW TABLET PO (18:45)
[2018-07-20] MEDS ORDERED: HumaLOG INSULIN (NovoLOG) PER UNIT SC (21:00)
[2018-07-20] MEDS: metFORMIN (GLUCOPHAGE) 500 MG TAB PO (21:21)
[2018-07-20] MEDS: GABAPENTIN 300 MG CAP PO (21:21)
[2018-07-20] MEDS: oxyCODONE 20 MG CR TAB PO (21:33)
[2018-07-21] MEDS: oxyCODONE 5MG TAB PO ×3 (05:06→16:57)
[2018-07-21 06:42] LABS: HEMATOCRIT 30.6 % (42.0-52.0); HEMOGLOBIN 10.3 g/dl (13.5-17.5); MEAN CORPUSCULAR HEMOGLOBIN 28.1 pg (27.0-33.0); MEAN CORPUSCULAR HGB CONC 33.7 g/dl (32.0-36.5); MEAN CORPUSCULAR VOLUME 83.6 fl (80.0-96.0); PLATELET COUNT, AUTOMATED 191 10^3/uL (150-450); RED BLOOD COUNT 3.66 10^6/uL (4.30-6.10); RED CELL DISTRIBUTION WIDTH 14.9 % (11.5-14.5); WHITE BLOOD COUNT 8.6 10^3/uL (4.0-10.0)
[2018-07-21 07:01] LABS: ANION GAP 7 MEQ/L (8-16); BLOOD UREA NITROGEN 16 MG/DL (7-18); CARBON DIOXIDE LEVEL 27 MEQ/L (21-32); CHLORIDE LEVEL 104 MEQ/L (98-107); CREATININE FOR GFR 0.88 MG/DL (0.70-1.30); GLOMERULAR FILTRATION RATE > 60.0 (>56); GLUCOSE, FASTING 131 MG/DL (70-100); POTASSIUM SERUM 4.2 MEQ/L (3.5-5.1); SODIUM LEVEL 138 MEQ/L (136-145)
[2018-07-21] MEDS ORDERED: HumaLOG INSULIN (NovoLOG) PER UNIT SC (07:30)
[2018-07-21] MEDS: ENOXAPARIN 40 MG/0.4 ML SYRINGE (J1650) SC ×3 (09:00→09:12)
[2018-07-21] MEDS: metFORMIN (GLUCOPHAGE) 500 MG TAB PO ×2 (09:10→18:28)
[2018-07-21] MEDS: oxyCODONE 20 MG CR TAB PO ×2 (09:10→20:54)
[2018-07-21] MEDS: OMEPRAZOLE 20 MG CAP PO (09:11)
[2018-07-21] MEDS: GABAPENTIN 300 MG CAP PO ×2 (09:11→20:53)
[2018-07-21] MEDS: CHLORTHALIDONE 25 MG TAB PO (09:11)
[2018-07-21] MEDS: BENAZEPRIL 5 MG TAB PO (12:04)
[2018-07-21 20:17] LABS: BEDSIDE GLUCOSE 122 MG/DL (70-105)
[2018-07-22] MEDS: oxyCODONE 5MG TAB PO ×5 (01:24→20:58)
[2018-07-22 06:49] LABS: HEMATOCRIT 29.9 % (42.0-52.0); HEMOGLOBIN 9.9 g/dl (13.5-17.5); MEAN CORPUSCULAR HGB CONC 33.1 g/dl (32.0-36.5); MEAN CORPUSCULAR VOLUME 84.5 fl (80.0-96.0); PLATELET COUNT, AUTOMATED 204 10^3/uL (150-450); RED BLOOD COUNT 3.54 10^6/uL (4.30-6.10); RED CELL DISTRIBUTION WIDTH 14.7 % (11.5-14.5); WHITE BLOOD COUNT 9.7 10^3/uL (4.0-10.0)
[2018-07-22 07:20] LABS: ANION GAP 7 MEQ/L (8-16); BLOOD UREA NITROGEN 15 MG/DL (7-18); CALCIUM LEVEL 8.8 MG/DL (8.5-10.1); CARBON DIOXIDE LEVEL 27 MEQ/L (21-32); CHLORIDE LEVEL 101 MEQ/L (98-107); GLOMERULAR FILTRATION RATE > 60.0 (>56); GLUCOSE, FASTING 126 MG/DL (70-100); POTASSIUM SERUM 4.2 MEQ/L (3.5-5.1); SODIUM LEVEL 135 MEQ/L (136-145)
[2018-07-22] MEDS: ENOXAPARIN 40 MG/0.4 ML SYRINGE (J1650) SC (09:00)
[2018-07-22] MEDS: GABAPENTIN 300 MG CAP PO ×2 (09:52→20:55)
[2018-07-22] MEDS: metFORMIN (GLUCOPHAGE) 500 MG TAB PO ×2 (09:52→17:32)
[2018-07-22] MEDS: CHLORTHALIDONE 25 MG TAB PO (09:52)
[2018-07-22] MEDS: OMEPRAZOLE 20 MG CAP PO (09:52)
[2018-07-22] MEDS: oxyCODONE 20 MG CR TAB PO ×2 (09:53→20:55)
[2018-07-22] MEDS: BENAZEPRIL 5 MG TAB PO (09:53)
[2018-07-22] MEDS: CYCLOBENZAPRINE 10 MG TAB PO (09:56)
[2018-07-22] MEDS: SENOKOT S TAB PO ×2 (11:37→20:55)
[2018-07-22 12:41] LABS: BEDSIDE GLUCOSE 122 MG/DL (70-105)
[2018-07-22 12:41] LABS: BEDSIDE GLUCOSE 153 MG/DL (70-105)
[2018-07-22 12:42] LABS: BEDSIDE GLUCOSE 185 MG/DL (70-105)
[2018-07-22 12:42] LABS: BEDSIDE GLUCOSE 138 MG/DL (70-105)
[2018-07-22 12:42] LABS: BEDSIDE GLUCOSE 147 MG/DL (70-105)
[2018-07-22 16:44] LABS: BEDSIDE GLUCOSE 158 MG/DL (70-105)
[2018-07-22 20:42] LABS: BEDSIDE GLUCOSE 128 MG/DL (70-105)
[2018-07-22] MEDS: MOM 30ML SUSPENSION UDC PO (20:58)
[2018-07-23] MEDS: oxyCODONE 5MG TAB PO ×2 (01:56→13:13)
[2018-07-23 06:04] LABS: HEMATOCRIT 30.5 % (42.0-52.0); MEAN CORPUSCULAR HEMOGLOBIN 27.9 pg (27.0-33.0); MEAN CORPUSCULAR HGB CONC 32.8 g/dl (32.0-36.5); MEAN CORPUSCULAR VOLUME 85.2 fl (80.0-96.0); PLATELET COUNT, AUTOMATED 192 10^3/uL (150-450); RED BLOOD COUNT 3.58 10^6/uL (4.30-6.10); RED CELL DISTRIBUTION WIDTH 14.7 % (11.5-14.5); WHITE BLOOD COUNT 8.9 10^3/uL (4.0-10.0)
[2018-07-23 06:27] LABS: ANION GAP 7 MEQ/L (8-16); BLOOD UREA NITROGEN 17 MG/DL (7-18); CALCIUM LEVEL 9.2 MG/DL (8.5-10.1); CARBON DIOXIDE LEVEL 30 MEQ/L (21-32); CHLORIDE LEVEL 100 MEQ/L (98-107); CREATININE FOR GFR 0.98 MG/DL (0.70-1.30); GLOMERULAR FILTRATION RATE > 60.0 (>56); GLUCOSE, FASTING 127 MG/DL (70-100); POTASSIUM SERUM 4.2 MEQ/L (3.5-5.1); SODIUM LEVEL 137 MEQ/L (136-145)
[2018-07-23] MEDS: CHLORTHALIDONE 25 MG TAB PO (08:37)
[2018-07-23] MEDS: metFORMIN (GLUCOPHAGE) 500 MG TAB PO (08:37)
[2018-07-23] MEDS: GABAPENTIN 300 MG CAP PO (08:37)
[2018-07-23] MEDS: OMEPRAZOLE 20 MG CAP PO (08:38)
[2018-07-23] MEDS: BENAZEPRIL 5 MG TAB PO (08:38)
[2018-07-23] MEDS: oxyCODONE 20 MG CR TAB PO (08:38)
[2018-07-23] MEDS: ENOXAPARIN 40 MG/0.4 ML SYRINGE (J1650) SC (08:39)
[2018-07-23 11:31] LABS: C REACTIVE PROTEIN QUANTITATIV 1.52 MG/DL (0.00-0.30)
[2018-07-23 12:02] LABS: BEDSIDE GLUCOSE 128 MG/DL (70-105)
[2018-07-23] MEDS: LevoFLOXacin 500 MG TABLET PO (13:10)
== END 2018-07-23 14:15 | disposition home or self-care (01) ==
LOC: M ED 11:56 → M ED INP 16:40 → M MSPAV 18:49
PROVIDERS: Hospitalist
DX: M54.5 Low back pain (principal); R05 Cough; C15.9 Malignant neoplasm of esophagus, unspecified; C79.51 Secondary malignant neoplasm of bone; Z92.3 Personal history of irradiation; E11.9 Type 2 diabetes mellitus without complications; I10 Essential (primary) hypertension; G47.00 Insomnia, unspecified; K59.03 Drug induced constipation; Z79.899 Other long term (current) drug therapy; Z88.0 Allergy status to penicillin
CPT/HCPCS: 71045

== ENCOUNTER 2018-08-12 11:36 | Inpatient (IN) | payer MEDICARE, MEDICAID ==
[2018-08-12 12:21] LABS: BASO % 0.4 % (0.0-1.0); EOS # 0.1 10^3/uL (0.0-0.50); EOS % 0.7 % (0.0-3.0); HEMATOCRIT 33.2 % (42.0-52.0); HEMOGLOBIN 10.9 g/dl (13.5-17.5); IMMATURE GRANULOCYTE % 1.2 % (0-3.0); LYMPH # 1.7 10^3/uL (1.5-4.5); LYMPH % 15.7 % (24.0-44.0); MEAN CORPUSCULAR HEMOGLOBIN 27.5 pg (27.0-33.0); MEAN CORPUSCULAR HGB CONC 32.8 g/dl (32.0-36.5); MEAN CORPUSCULAR VOLUME 83.8 fl (80.0-96.0); MONO # 1.4 10^3/uL (0.0-0.8); MONO % 12.2 % (0.0-5.0); NEUTROPHILS # 7.8 10^3/uL (1.8-7.7); NEUTROPHILS % 69.8 % (36.0-66.0); PLATELET COUNT, AUTOMATED 152 10^3/uL (150-450); RED BLOOD COUNT 3.96 10^6/uL (4.30-6.10); RED CELL DISTRIBUTION WIDTH 15.9 % (11.5-14.5); WHITE BLOOD COUNT 11.1 10^3/uL (4.0-10.0)
[2018-08-12] MEDS: METOCLOPRAMIDE INJ 10MG/2ML VIAL (J2765) IV (12:26)
[2018-08-12] MEDS: NS 1,000 ML IV (12:27)
[2018-08-12] MEDS: KETOROLAC 30 MG/ML VIAL (J1885) IV (12:27)
[2018-08-12 12:35] LABS: INR 1.25; PROTHROMBIN TIME 15.9 SECONDS (12.1-14.4)
[2018-08-12 13:08] LABS: ALBUMIN 3.1 GM/DL (3.2-5.2); ALKALINE PHOSPHATASE 254 U/L (45-117); ALT/SGPT 29 U/L (12-78); ANION GAP 10 MEQ/L (8-16); AST/SGOT 31 U/L (7-37); BILIRUBIN,DIRECT 0.2 MG/DL (0.0-0.2); BILIRUBIN,TOTAL 0.8 MG/DL (0.2-1.0); BLOOD UREA NITROGEN 18 MG/DL (7-18); CALCIUM LEVEL 9.5 MG/DL (8.5-10.1); CARBON DIOXIDE LEVEL 30 MEQ/L (21-32); CHLORIDE LEVEL 97 MEQ/L (98-107); CK-MB VALUE MASS < 1.0 NG/ML (<3.6); CPK CREATINE PHOSPHOKINASE 52 U/L (39-308); GLOMERULAR FILTRATION RATE > 60.0 (>56); GLUCOSE, FASTING 133 MG/DL (70-100); LIPASE 27 U/L (73-393); MB/CK RELATIVE INDEX 1.92 (< OR =4); SODIUM LEVEL 137 MEQ/L (136-145); TOTAL PROTEIN 7.5 GM/DL (6.4-8.2); TROPONIN I 0.16 NG/ML (< 0.10)
[2018-08-12 13:37] LABS: NT-PRO BNP 325 PG/ML (<125)
[2018-08-12] MEDS: ASPIRIN 325 MG TAB PO (13:43)
[2018-08-12] MEDS: NITROGLYCERIN 0.4 MG SUBL TABLET SL ×3 (13:49→23:46)
[2018-08-12] MEDS: MORPHINE 4 MG/ML 1ML VIAL/SYRINGE (J2270) IV (14:36)
[2018-08-12] MEDS ORDERED: DOCUSATE SODIUM 100 MG CAP PO (15:00)
[2018-08-12] MEDS ORDERED: SENNA 8.6 MG TAB (SENOKOT) PO (15:00)
[2018-08-12] MEDS: oxyCODONE 5MG TAB PO ×2 (18:37→23:44)
[2018-08-12] MEDS: GABAPENTIN 300 MG CAP PO (20:22)
[2018-08-13] MEDS ORDERED: NALOXONE INJ 0.4 MG/1 ML VIAL (J2310) IV (00:15)
[2018-08-13 01:50] LABS: TROPONIN I 0.13 NG/ML (< 0.10)
[2018-08-13] MEDS: MORPHINE 4 MG/ML 1ML VIAL/SYRINGE (J2270) IV (06:29)
[2018-08-13] MEDS: PANTOPRAZOLE 40MG TAB (PROTONIX) PO (08:19)
[2018-08-13] MEDS: GABAPENTIN 300 MG CAP PO ×2 (08:19→20:42)
[2018-08-13] MEDS: oxyCODONE 5MG TAB PO ×4 (08:21→21:33)
[2018-08-13] MEDS: MIRALAX *UNIT DOSE* 17GM PACKET PO ×2 (09:00→20:42)
[2018-08-13 09:12] LABS: BASO % 0.3 % (0.0-1.0); HEMATOCRIT 32.2 % (42.0-52.0); HEMOGLOBIN 10.6 g/dl (13.5-17.5); IMMATURE GRANULOCYTE % 0.9 % (0-3.0); LYMPH # 1.5 10^3/uL (1.5-4.5); MEAN CORPUSCULAR HEMOGLOBIN 27.4 pg (27.0-33.0); MEAN CORPUSCULAR HGB CONC 32.9 g/dl (32.0-36.5); MEAN CORPUSCULAR VOLUME 83.2 fl (80.0-96.0); MONO # 1.7 10^3/uL (0.0-0.8); MONO % 11.4 % (0.0-5.0); NEUTROPHILS # 11.6 10^3/uL (1.8-7.7); NEUTROPHILS % 77.4 % (36.0-66.0); PLATELET COUNT, AUTOMATED 177 10^3/uL (150-450); RED BLOOD COUNT 3.87 10^6/uL (4.30-6.10); RED CELL DISTRIBUTION WIDTH 15.8 % (11.5-14.5)
[2018-08-13 09:23] LABS: CK-MB VALUE MASS < 1.0 NG/ML (<3.6); CPK CREATINE PHOSPHOKINASE 44 U/L (39-308); MB/CK RELATIVE INDEX 2.27 (< OR =4); TROPONIN I 0.09 NG/ML (< 0.10)
[2018-08-13] MEDS ORDERED: ISOVUE-370 76% 100ML VIAL (Q9967) As Ordered (09:33)
[2018-08-13 09:45] LABS: ANION GAP 9 MEQ/L (8-16); BLOOD UREA NITROGEN 24 MG/DL (7-18); CALCIUM LEVEL 9.2 MG/DL (8.5-10.1); CARBON DIOXIDE LEVEL 26 MEQ/L (21-32); CHLORIDE LEVEL 100 MEQ/L (98-107); CREATININE FOR GFR 0.86 MG/DL (0.70-1.30); GLOMERULAR FILTRATION RATE > 60.0 (>56); GLUCOSE, FASTING 131 MG/DL (70-100); POTASSIUM SERUM 4.2 MEQ/L (3.5-5.1); SODIUM LEVEL 135 MEQ/L (136-145)
[2018-08-13] MEDS: LevoFLOXacin IV 750 MG in APPROPRIATE DILUENT 1 EA IV (12:09)
[2018-08-13] MEDS: ENOXAPARIN 100MG/1ML SYRINGE (J1650) SC ×2 (12:35→20:42)
[2018-08-13 15:03] LABS: CK-MB VALUE MASS < 1.0 NG/ML (<3.6); CPK CREATINE PHOSPHOKINASE 126 U/L (39-308); MB/CK RELATIVE INDEX 0.79 (< OR =4); TROPONIN I 0.07 NG/ML (< 0.10)
[2018-08-13] MEDS: MOM 30ML SUSPENSION UDC PO (16:42)
[2018-08-14] MEDS: oxyCODONE 5MG TAB PO ×4 (06:25→20:11)
[2018-08-14 07:56] LABS: BASO % 0.1 % (0.0-1.0); HEMATOCRIT 28.2 % (42.0-52.0); HEMOGLOBIN 9.3 g/dl (13.5-17.5); IMMATURE GRANULOCYTE % 1.2 % (0-3.0); LYMPH # 0.9 10^3/uL (1.5-4.5); LYMPH % 6.6 % (24.0-44.0); MEAN CORPUSCULAR HEMOGLOBIN 27.2 pg (27.0-33.0); MEAN CORPUSCULAR VOLUME 82.5 fl (80.0-96.0); MONO # 1.4 10^3/uL (0.0-0.8); MONO % 10.2 % (0.0-5.0); NEUTROPHILS # 11.4 10^3/uL (1.8-7.7); NEUTROPHILS % 81.9 % (36.0-66.0); PLATELET COUNT, AUTOMATED 183 10^3/uL (150-450); RED BLOOD COUNT 3.42 10^6/uL (4.30-6.10); RED CELL DISTRIBUTION WIDTH 15.6 % (11.5-14.5); WHITE BLOOD COUNT 13.9 10^3/uL (4.0-10.0)
[2018-08-14 08:09] LABS: ALBUMIN 2.5 GM/DL (3.2-5.2); ALBUMIN/GLOBULIN RATIO 0.57 (1.00-1.93); ALKALINE PHOSPHATASE 194 U/L (45-117); ALT/SGPT 24 U/L (12-78); ANION GAP 7 MEQ/L (8-16); AST/SGOT 27 U/L (7-37); BILIRUBIN,TOTAL 0.8 MG/DL (0.2-1.0); BLOOD UREA NITROGEN 27 MG/DL (7-18); CARBON DIOXIDE LEVEL 27 MEQ/L (21-32); CHLORIDE LEVEL 102 MEQ/L (98-107); CREATININE FOR GFR 0.75 MG/DL (0.70-1.30); GLOMERULAR FILTRATION RATE > 60.0 (>56); GLUCOSE, FASTING 149 MG/DL (70-100); MAGNESIUM LEVEL 2.2 MG/DL (1.8-2.4); POTASSIUM SERUM 4.2 MEQ/L (3.5-5.1); SODIUM LEVEL 136 MEQ/L (136-145); TOTAL PROTEIN 6.9 GM/DL (6.4-8.2)
[2018-08-14] MEDS: MIRALAX *UNIT DOSE* 17GM PACKET PO ×2 (09:00→20:12)
[2018-08-14] MEDS: LevoFLOXacin IV 750 MG in APPROPRIATE DILUENT 1 EA IV (09:20)
[2018-08-14] MEDS: GABAPENTIN 300 MG CAP PO ×2 (09:21→20:11)
[2018-08-14] MEDS: ENOXAPARIN 100MG/1ML SYRINGE (J1650) SC ×2 (09:21→20:11)
[2018-08-14] MEDS: PANTOPRAZOLE 40MG TAB (PROTONIX) PO (09:21)
[2018-08-14] MEDS ORDERED: GLUCAGON FOR INJ 1 MG VIAL (J1610) SC (13:30)
[2018-08-14] MEDS ORDERED: DEXTROSE 50% 50 ML SYRINGE IV (13:30)
[2018-08-14] MEDS ORDERED: GLUCOSE 4 GM CHEW TABLET PO (13:30)
[2018-08-14 17:05] LABS: BEDSIDE GLUCOSE 185 MG/DL (70-105)
[2018-08-14] MEDS: HumaLOG INSULIN (NovoLOG) PER UNIT SC ×3 (17:30→20:45)
[2018-08-14 20:02] LABS: BEDSIDE GLUCOSE 164 MG/DL (70-105)
[2018-08-15] MEDS: oxyCODONE 5MG TAB PO ×5 (00:14→23:05)
[2018-08-15 06:35] LABS: BASO % 0.1 % (0.0-1.0); HEMATOCRIT 26.1 % (42.0-52.0); HEMOGLOBIN 8.6 g/dl (13.5-17.5); IMMATURE GRANULOCYTE % 1.4 % (0-3.0); LYMPH # 0.8 10^3/uL (1.5-4.5); LYMPH % 6.9 % (24.0-44.0); MEAN CORPUSCULAR HEMOGLOBIN 27.3 pg (27.0-33.0); MEAN CORPUSCULAR VOLUME 82.9 fl (80.0-96.0); MONO # 1.3 10^3/uL (0.0-0.8); MONO % 10.3 % (0.0-5.0); NEUTROPHILS # 9.9 10^3/uL (1.8-7.7); NEUTROPHILS % 81.3 % (36.0-66.0); PLATELET COUNT, AUTOMATED 197 10^3/uL (150-450); RED BLOOD COUNT 3.15 10^6/uL (4.30-6.10); RED CELL DISTRIBUTION WIDTH 15.9 % (11.5-14.5); WHITE BLOOD COUNT 12.1 10^3/uL (4.0-10.0)
[2018-08-15 06:59] LABS: ALBUMIN 2.2 GM/DL (3.2-5.2); ALBUMIN/GLOBULIN RATIO 0.48 (1.00-1.93); ALKALINE PHOSPHATASE 205 U/L (45-117); ALT/SGPT 39 U/L (12-78); ANION GAP 5 MEQ/L (8-16); AST/SGOT 49 U/L (7-37); BILIRUBIN,TOTAL 0.5 MG/DL (0.2-1.0); BLOOD UREA NITROGEN 30 MG/DL (7-18); CALCIUM LEVEL 8.9 MG/DL (8.5-10.1); CARBON DIOXIDE LEVEL 28 MEQ/L (21-32); CHLORIDE LEVEL 103 MEQ/L (98-107); GLOMERULAR FILTRATION RATE > 60.0 (>56); GLUCOSE, FASTING 159 MG/DL (70-100); MAGNESIUM LEVEL 2.1 MG/DL (1.8-2.4); POTASSIUM SERUM 4.2 MEQ/L (3.5-5.1); SODIUM LEVEL 136 MEQ/L (136-145); TOTAL PROTEIN 6.8 GM/DL (6.4-8.2)
[2018-08-15] MEDS: HumaLOG INSULIN (NovoLOG) PER UNIT SC ×2 (07:30→12:00)
[2018-08-15] MEDS: MIRALAX *UNIT DOSE* 17GM PACKET PO ×2 (10:23→20:16)
[2018-08-15] MEDS: PANTOPRAZOLE 40MG TAB (PROTONIX) PO (10:23)
[2018-08-15] MEDS: LevoFLOXacin IV 750 MG in APPROPRIATE DILUENT 1 EA IV (10:23)
[2018-08-15] MEDS: ENOXAPARIN 100MG/1ML SYRINGE (J1650) SC ×2 (10:24→20:11)
[2018-08-15] MEDS: GABAPENTIN 300 MG CAP PO ×2 (10:24→20:10)
[2018-08-15] MEDS: oxyCODONE 15 MG CR TAB PO ×2 (10:24→20:10)
[2018-08-15] MEDS: MOM 30ML SUSPENSION UDC PO (11:13)
[2018-08-15 12:00] LABS: BEDSIDE GLUCOSE 205 MG/DL (70-105)
[2018-08-15 16:53] LABS: BEDSIDE GLUCOSE 199 MG/DL (70-105)
[2018-08-15] MEDS: metFORMIN XR 500MG TAB *GLUCOPHAGE XR PO (19:01)
[2018-08-15 20:45] LABS: BEDSIDE GLUCOSE 172 MG/DL (70-105)
[2018-08-16 04:50] LABS: BEDSIDE GLUCOSE 164 MG/DL (70-105)
[2018-08-16] MEDS: oxyCODONE 5MG TAB PO ×5 (05:18→18:47)
[2018-08-16] MEDS: metFORMIN XR 500MG TAB *GLUCOPHAGE XR PO ×2 (05:18→16:57)
[2018-08-16 06:35] LABS: BASO % 0.1 % (0.0-1.0); HEMATOCRIT 25.8 % (42.0-52.0); HEMOGLOBIN 8.8 g/dl (13.5-17.5); IMMATURE GRANULOCYTE % 1.3 % (0-3.0); LYMPH % 8.5 % (24.0-44.0); MEAN CORPUSCULAR HEMOGLOBIN 27.7 pg (27.0-33.0); MEAN CORPUSCULAR HGB CONC 34.1 g/dl (32.0-36.5); MEAN CORPUSCULAR VOLUME 81.1 fl (80.0-96.0); MONO # 1.3 10^3/uL (0.0-0.8); MONO % 11.7 % (0.0-5.0); NEUTROPHILS # 8.8 10^3/uL (1.8-7.7); NEUTROPHILS % 78.4 % (36.0-66.0); PLATELET COUNT, AUTOMATED 232 10^3/uL (150-450); RED BLOOD COUNT 3.18 10^6/uL (4.30-6.10); RED CELL DISTRIBUTION WIDTH 15.8 % (11.5-14.5); WHITE BLOOD COUNT 11.3 10^3/uL (4.0-10.0)
[2018-08-16 06:57] LABS: ALBUMIN 2.3 GM/DL (3.2-5.2); ALBUMIN/GLOBULIN RATIO 0.49 (1.00-1.93); ALKALINE PHOSPHATASE 242 U/L (45-117); ALT/SGPT 85 U/L (12-78); ANION GAP 6 MEQ/L (8-16); AST/SGOT 97 U/L (7-37); BILIRUBIN,TOTAL 0.5 MG/DL (0.2-1.0); BLOOD UREA NITROGEN 29 MG/DL (7-18); C REACTIVE PROTEIN QUANTITATIV 9.19 MG/DL (0.00-0.30); CALCIUM LEVEL 8.8 MG/DL (8.5-10.1); CARBON DIOXIDE LEVEL 28 MEQ/L (21-32); CHLORIDE LEVEL 103 MEQ/L (98-107); CREATININE FOR GFR 0.78 MG/DL (0.70-1.30); GLOMERULAR FILTRATION RATE > 60.0 (>56); GLUCOSE, FASTING 149 MG/DL (70-100); MAGNESIUM LEVEL 2.1 MG/DL (1.8-2.4); POTASSIUM SERUM 4.2 MEQ/L (3.5-5.1); SODIUM LEVEL 137 MEQ/L (136-145)
[2018-08-16] MEDS: ENOXAPARIN 100MG/1ML SYRINGE (J1650) SC ×2 (08:14→20:37)
[2018-08-16] MEDS: LevoFLOXacin IV 750 MG in APPROPRIATE DILUENT 1 EA IV (08:14)
[2018-08-16] MEDS: GABAPENTIN 300 MG CAP PO ×3 (08:15→20:37)
[2018-08-16] MEDS: MIRALAX *UNIT DOSE* 17GM PACKET PO ×2 (08:15→20:38)
[2018-08-16] MEDS: PANTOPRAZOLE 40MG TAB (PROTONIX) PO ×2 (08:15→10:53)
[2018-08-16] MEDS: oxyCODONE 15 MG CR TAB PO (08:15)
[2018-08-16 12:16] LABS: BEDSIDE GLUCOSE 109 MG/DL (70-105)
[2018-08-16 17:23] LABS: BEDSIDE GLUCOSE 153 MG/DL (70-105)
[2018-08-16 19:57] LABS: BEDSIDE GLUCOSE 138 MG/DL (70-105)
[2018-08-16] MEDS: oxyCODONE 20 MG CR TAB PO (20:38)
[2018-08-16] MEDS: ALBUTEROL 90 MCG/ACT 8GM HFA INHALER INH (23:20)
[2018-08-17] MEDS: oxyCODONE 5MG TAB PO ×6 (01:18→23:01)
[2018-08-17 06:28] LABS: BASO % 0.1 % (0.0-1.0); EOS % 0.1 % (0.0-3.0); HEMATOCRIT 27.8 % (42.0-52.0); HEMOGLOBIN 9.2 g/dl (13.5-17.5); IMMATURE GRANULOCYTE % 1.3 % (0-3.0); LYMPH # 1.3 10^3/uL (1.5-4.5); MEAN CORPUSCULAR HEMOGLOBIN 26.9 pg (27.0-33.0); MEAN CORPUSCULAR HGB CONC 33.1 g/dl (32.0-36.5); MEAN CORPUSCULAR VOLUME 81.3 fl (80.0-96.0); MONO # 1.3 10^3/uL (0.0-0.8); MONO % 11.3 % (0.0-5.0); NEUTROPHILS # 8.7 10^3/uL (1.8-7.7); NEUTROPHILS % 76.2 % (36.0-66.0); PLATELET COUNT, AUTOMATED 233 10^3/uL (150-450); RED BLOOD COUNT 3.42 10^6/uL (4.30-6.10); RED CELL DISTRIBUTION WIDTH 15.9 % (11.5-14.5); WHITE BLOOD COUNT 11.4 10^3/uL (4.0-10.0)
[2018-08-17 06:47] LABS: ALBUMIN 2.4 GM/DL (3.2-5.2); ALBUMIN/GLOBULIN RATIO 0.52 (1.00-1.93); ALKALINE PHOSPHATASE 243 U/L (45-117); ALT/SGPT 59 U/L (12-78); ANION GAP 6 MEQ/L (8-16); AST/SGOT 52 U/L (7-37); BILIRUBIN,TOTAL 0.4 MG/DL (0.2-1.0); BLOOD UREA NITROGEN 26 MG/DL (7-18); C REACTIVE PROTEIN QUANTITATIV 8.28 MG/DL (0.00-0.30); CALCIUM LEVEL 9.5 MG/DL (8.5-10.1); CARBON DIOXIDE LEVEL 28 MEQ/L (21-32); CHLORIDE LEVEL 104 MEQ/L (98-107); CREATININE FOR GFR 0.73 MG/DL (0.70-1.30); GLOMERULAR FILTRATION RATE > 60.0 (>56); GLUCOSE, FASTING 133 MG/DL (70-100); MAGNESIUM LEVEL 2.1 MG/DL (1.8-2.4); POTASSIUM SERUM 4.1 MEQ/L (3.5-5.1); SODIUM LEVEL 138 MEQ/L (136-145)
[2018-08-17] MEDS: MIRALAX *UNIT DOSE* 17GM PACKET PO ×2 (09:00→20:18)
[2018-08-17] MEDS: PANTOPRAZOLE 40MG TAB (PROTONIX) PO (09:06)
[2018-08-17] MEDS: LevoFLOXacin IV 750 MG in APPROPRIATE DILUENT 1 EA IV (09:06)
[2018-08-17] MEDS: metFORMIN XR 500MG TAB *GLUCOPHAGE XR PO ×2 (09:07→18:58)
[2018-08-17] MEDS: ENOXAPARIN 100MG/1ML SYRINGE (J1650) SC ×2 (09:07→20:20)
[2018-08-17] MEDS: GABAPENTIN 300 MG CAP PO ×2 (09:07→20:18)
[2018-08-17 11:59] LABS: BEDSIDE GLUCOSE 138 MG/DL (70-105)
[2018-08-17 16:45] LABS: BEDSIDE GLUCOSE 128 MG/DL (70-105)
[2018-08-17 20:02] LABS: BEDSIDE GLUCOSE 126 MG/DL (70-105)
[2018-08-17] MEDS: XTAMPZA 36 MG PO (20:18)
[2018-08-18] MEDS: oxyCODONE 5MG TAB PO ×5 (03:07→22:50)
[2018-08-18] MEDS: metFORMIN XR 500MG TAB *GLUCOPHAGE XR PO ×2 (06:09→17:53)
[2018-08-18 06:20] LABS: BASO % 0.2 % (0.0-1.0); EOS % 0.2 % (0.0-3.0); HEMATOCRIT 28.1 % (42.0-52.0); HEMOGLOBIN 9.3 g/dl (13.5-17.5); IMMATURE GRANULOCYTE % 1.7 % (0-3.0); LYMPH # 1.1 10^3/uL (1.5-4.5); LYMPH % 10.2 % (24.0-44.0); MEAN CORPUSCULAR HEMOGLOBIN 27.3 pg (27.0-33.0); MEAN CORPUSCULAR HGB CONC 33.1 g/dl (32.0-36.5); MEAN CORPUSCULAR VOLUME 82.4 fl (80.0-96.0); MONO # 1.2 10^3/uL (0.0-0.8); MONO % 10.9 % (0.0-5.0); NEUTROPHILS # 8.6 10^3/uL (1.8-7.7); NEUTROPHILS % 76.8 % (36.0-66.0); PLATELET COUNT, AUTOMATED 250 10^3/uL (150-450); RED BLOOD COUNT 3.41 10^6/uL (4.30-6.10); RED CELL DISTRIBUTION WIDTH 15.9 % (11.5-14.5); WHITE BLOOD COUNT 11.2 10^3/uL (4.0-10.0)
[2018-08-18 06:44] LABS: ALBUMIN 2.3 GM/DL (3.2-5.2); ALBUMIN/GLOBULIN RATIO 0.49 (1.00-1.93); ALKALINE PHOSPHATASE 252 U/L (45-117); ALT/SGPT 49 U/L (12-78); ANION GAP 7 MEQ/L (8-16); AST/SGOT 36 U/L (7-37); BILIRUBIN,TOTAL 0.5 MG/DL (0.2-1.0); BLOOD UREA NITROGEN 25 MG/DL (7-18); C REACTIVE PROTEIN QUANTITATIV 7.78 MG/DL (0.00-0.30); CARBON DIOXIDE LEVEL 28 MEQ/L (21-32); CHLORIDE LEVEL 103 MEQ/L (98-107); CREATININE FOR GFR 0.77 MG/DL (0.70-1.30); GLOMERULAR FILTRATION RATE > 60.0 (>56); GLUCOSE, FASTING 124 MG/DL (70-100); POTASSIUM SERUM 4.1 MEQ/L (3.5-5.1); SODIUM LEVEL 138 MEQ/L (136-145)
[2018-08-18] MEDS: MIRALAX *UNIT DOSE* 17GM PACKET PO (09:00)
[2018-08-18] MEDS: XTAMPZA 36 MG PO ×2 (09:27→17:53)
[2018-08-18] MEDS: GABAPENTIN 300 MG CAP PO ×3 (09:27→20:35)
[2018-08-18] MEDS: PANTOPRAZOLE 40MG TAB (PROTONIX) PO (09:27)
[2018-08-18] MEDS: LevoFLOXacin IV 750 MG in APPROPRIATE DILUENT 1 EA IV (09:28)
[2018-08-18] MEDS: ENOXAPARIN 100MG/1ML SYRINGE (J1650) SC ×2 (09:28→20:34)
[2018-08-18] MEDS ORDERED: MIRALAX *UNIT DOSE* 17GM PACKET PO (09:30)
[2018-08-18 12:09] LABS: BEDSIDE GLUCOSE 138 MG/DL (70-105)
[2018-08-18 17:00] LABS: BEDSIDE GLUCOSE 146 MG/DL (70-105)
[2018-08-18 19:57] LABS: BEDSIDE GLUCOSE 160 MG/DL (70-105)
[2018-08-18] MEDS: LIDOCAINE 5% (LIDODERM) PATCH TD (20:35)
[2018-08-19] MEDS: oxyCODONE 5MG TAB PO ×6 (03:08→23:18)
[2018-08-19 06:19] LABS: BASO % 0.1 % (0.0-1.0); EOS % 0.1 % (0.0-3.0); HEMATOCRIT 26.8 % (42.0-52.0); HEMOGLOBIN 8.8 g/dl (13.5-17.5); IMMATURE GRANULOCYTE % 2.9 % (0-3.0); LYMPH # 1.3 10^3/uL (1.5-4.5); LYMPH % 11.7 % (24.0-44.0); MEAN CORPUSCULAR HEMOGLOBIN 26.7 pg (27.0-33.0); MEAN CORPUSCULAR HGB CONC 32.8 g/dl (32.0-36.5); MEAN CORPUSCULAR VOLUME 81.5 fl (80.0-96.0); MONO # 1.1 10^3/uL (0.0-0.8); NEUTROPHILS # 8.4 10^3/uL (1.8-7.7); NEUTROPHILS % 75.2 % (36.0-66.0); PLATELET COUNT, AUTOMATED 252 10^3/uL (150-450); RED BLOOD COUNT 3.29 10^6/uL (4.30-6.10); RED CELL DISTRIBUTION WIDTH 15.9 % (11.5-14.5); WHITE BLOOD COUNT 11.2 10^3/uL (4.0-10.0)
[2018-08-19 06:51] LABS: ALBUMIN 2.2 GM/DL (3.2-5.2); ALBUMIN/GLOBULIN RATIO 0.47 (1.00-1.93); ALKALINE PHOSPHATASE 247 U/L (45-117); ALT/SGPT 42 U/L (12-78); ANION GAP 7 MEQ/L (8-16); AST/SGOT 35 U/L (7-37); BILIRUBIN,TOTAL 0.5 MG/DL (0.2-1.0); BLOOD UREA NITROGEN 25 MG/DL (7-18); C REACTIVE PROTEIN QUANTITATIV 7.68 MG/DL (0.00-0.30); CALCIUM LEVEL 8.8 MG/DL (8.5-10.1); CARBON DIOXIDE LEVEL 28 MEQ/L (21-32); CHLORIDE LEVEL 102 MEQ/L (98-107); CREATININE FOR GFR 0.77 MG/DL (0.70-1.30); GLOMERULAR FILTRATION RATE > 60.0 (>56); GLUCOSE, FASTING 121 MG/DL (70-100); MAGNESIUM LEVEL 1.9 MG/DL (1.8-2.4); POTASSIUM SERUM 4.1 MEQ/L (3.5-5.1); SODIUM LEVEL 137 MEQ/L (136-145); TOTAL PROTEIN 6.9 GM/DL (6.4-8.2)
[2018-08-19] MEDS: metFORMIN XR 500MG TAB *GLUCOPHAGE XR PO ×2 (06:55→18:27)
[2018-08-19] MEDS: XTAMPZA 36 MG PO ×2 (06:56→18:27)
[2018-08-19] MEDS: PANTOPRAZOLE 40MG TAB (PROTONIX) PO (08:27)
[2018-08-19] MEDS: GABAPENTIN 300 MG CAP PO ×3 (08:27→20:08)
[2018-08-19] MEDS: ENOXAPARIN 100MG/1ML SYRINGE (J1650) SC ×2 (08:28→20:08)
[2018-08-19] MEDS: LevoFLOXacin IV 750 MG in APPROPRIATE DILUENT 1 EA IV (08:29)
[2018-08-19] MEDS: **NOTE PATIENT COMMENT** MISC XX (09:00)
[2018-08-19] MEDS: MOM 30ML SUSPENSION UDC PO (10:56)
[2018-08-19 11:37] LABS: BEDSIDE GLUCOSE 133 MG/DL (70-105)
[2018-08-19] MEDS: ALBUTEROL 90 MCG/ACT 8GM HFA INHALER INH (16:08)
[2018-08-19 17:01] LABS: BEDSIDE GLUCOSE 165 MG/DL (70-105)
[2018-08-19] MEDS: LIDOCAINE 5% (LIDODERM) PATCH TD (20:08)
[2018-08-19] MEDS: ALBUTEROL SULFATE 2.5 MG/0.5 ML INH NEB SOLN NEB (20:21)
[2018-08-19 21:31] LABS: BEDSIDE GLUCOSE 132 MG/DL (70-105)
[2018-08-20] MEDS: oxyCODONE 5MG TAB PO ×6 (03:23→22:05)
[2018-08-20] MEDS: metFORMIN XR 500MG TAB *GLUCOPHAGE XR PO ×2 (06:20→17:05)
[2018-08-20] MEDS: XTAMPZA 36 MG PO ×2 (06:20→17:04)
[2018-08-20] MEDS: CYCLOBENZAPRINE 10 MG TAB PO ×2 (06:28→20:49)
[2018-08-20 06:37] LABS: BASO % 0.1 % (0.0-1.0); EOS % 0.1 % (0.0-3.0); HEMATOCRIT 27.8 % (42.0-52.0); HEMOGLOBIN 9.3 g/dl (13.5-17.5); IMMATURE GRANULOCYTE % 2.6 % (0-3.0); LYMPH # 1.1 10^3/uL (1.5-4.5); LYMPH % 12.1 % (24.0-44.0); MEAN CORPUSCULAR HEMOGLOBIN 27.1 pg (27.0-33.0); MEAN CORPUSCULAR HGB CONC 33.5 g/dl (32.0-36.5); MONO % 11.4 % (0.0-5.0); NEUTROPHILS # 6.4 10^3/uL (1.8-7.7); NEUTROPHILS % 73.7 % (36.0-66.0); PLATELET COUNT, AUTOMATED 247 10^3/uL (150-450); RED BLOOD COUNT 3.43 10^6/uL (4.30-6.10); WHITE BLOOD COUNT 8.8 10^3/uL (4.0-10.0)
[2018-08-20 07:06] LABS: ALBUMIN 2.3 GM/DL (3.2-5.2); ALBUMIN/GLOBULIN RATIO 0.49 (1.00-1.93); ALKALINE PHOSPHATASE 252 U/L (45-117); ALT/SGPT 35 U/L (12-78); ANION GAP 6 MEQ/L (8-16); AST/SGOT 32 U/L (7-37); BILIRUBIN,TOTAL 0.6 MG/DL (0.2-1.0); BLOOD UREA NITROGEN 21 MG/DL (7-18); CALCIUM LEVEL 8.8 MG/DL (8.5-10.1); CARBON DIOXIDE LEVEL 28 MEQ/L (21-32); CHLORIDE LEVEL 102 MEQ/L (98-107); CREATININE FOR GFR 0.82 MG/DL (0.70-1.30); GLOMERULAR FILTRATION RATE > 60.0 (>56); GLUCOSE, FASTING 113 MG/DL (70-100); POTASSIUM SERUM 4.2 MEQ/L (3.5-5.1); SODIUM LEVEL 136 MEQ/L (136-145)
[2018-08-20 08:05] LABS: C REACTIVE PROTEIN QUANTITATIV 6.03 MG/DL (0.00-0.30)
[2018-08-20] MEDS ORDERED: E-Z-HD 98% w/w 340GM SUSP BTL As Ordered (08:24)
[2018-08-20] MEDS ORDERED: BARIUM SULFATE 700 MG TABLET (E-Z-DISK) As Ordered (08:24)
[2018-08-20] MEDS ORDERED: E-Z-PAQUE 96% w/w SUSP 176GM BTL As Ordered (08:24)
[2018-08-20] MEDS ORDERED: E-Z-GAS II EFFERVESCENT PACKET (SODIUM BICARB./CITRIC ACID/SIMETHICONE) As Ordered (08:25)
[2018-08-20] MEDS: **NOTE PATIENT COMMENT** MISC XX (09:00)
[2018-08-20] MEDS: LevoFLOXacin IV 750 MG in APPROPRIATE DILUENT 1 EA IV (09:26)
[2018-08-20] MEDS: PANTOPRAZOLE 40MG TAB (PROTONIX) PO (09:26)
[2018-08-20] MEDS: GABAPENTIN 300 MG CAP PO ×3 (09:26→20:26)
[2018-08-20] MEDS: ENOXAPARIN 100MG/1ML SYRINGE (J1650) SC ×2 (09:27→20:24)
[2018-08-20 11:51] LABS: BEDSIDE GLUCOSE 108 MG/DL (70-105)
[2018-08-20] MEDS: ALBUTEROL 90 MCG/ACT 8GM HFA INHALER INH (15:42)
[2018-08-20 16:46] LABS: TROPONIN I 0.39 NG/ML (< 0.10)
[2018-08-20 17:04] LABS: BEDSIDE GLUCOSE 132 MG/DL (70-105)
[2018-08-20] MEDS: ASPIRIN 325 MG TAB PO (17:04)
[2018-08-20] MEDS: ATORVASTATIN 20 MG TAB PO (17:05)
[2018-08-20] MEDS: ALBUTEROL SULFATE 2.5 MG/0.5 ML INH NEB SOLN NEB (19:36)
[2018-08-20] MEDS: LIDOCAINE 5% (LIDODERM) PATCH TD (20:26)
[2018-08-20] MEDS: D5W/0.45% SODIUM CHLORIDE 1,000 ML IV (20:26)
[2018-08-20 21:02] LABS: BEDSIDE GLUCOSE 152 MG/DL (70-105)
[2018-08-20] MEDS: METOPROLOL TART 12.5 MG PER 1/2 TAB PO (22:00)
[2018-08-20 22:26] LABS: CPK CREATINE PHOSPHOKINASE 74 U/L (39-308); MB/CK RELATIVE INDEX 1.76 (< OR =4); TROPONIN I 0.52 NG/ML (< 0.10)
[2018-08-21] MEDS: oxyCODONE 5MG TAB PO ×6 (02:57→23:16)
[2018-08-21] MEDS: metFORMIN XR 500MG TAB *GLUCOPHAGE XR PO ×2 (05:49→17:27)
[2018-08-21] MEDS: METOPROLOL TART 12.5 MG PER 1/2 TAB PO ×3 (05:49→21:19)
[2018-08-21] MEDS: XTAMPZA 36 MG PO ×2 (07:00→17:27)
[2018-08-21] MEDS: **NOTE PATIENT COMMENT** MISC XX (09:00)
[2018-08-21] MEDS: PANTOPRAZOLE 40MG TAB (PROTONIX) PO (09:15)
[2018-08-21] MEDS: GABAPENTIN 300 MG CAP PO ×3 (09:15→20:00)
[2018-08-21] MEDS: ATORVASTATIN 20 MG TAB PO (09:15)
[2018-08-21] MEDS: ASPIRIN 81 MG ENTERIC TAB PO (09:16)
[2018-08-21] MEDS: ENOXAPARIN 100MG/1ML SYRINGE (J1650) SC (09:16)
[2018-08-21 09:20] LABS: BASO % 0.3 % (0.0-1.0); EOS % 0.2 % (0.0-3.0); HEMATOCRIT 28.8 % (42.0-52.0); HEMOGLOBIN 9.3 g/dl (13.5-17.5); IMMATURE GRANULOCYTE % 2.1 % (0-3.0); LYMPH % 10.1 % (24.0-44.0); MEAN CORPUSCULAR HEMOGLOBIN 27.2 pg (27.0-33.0); MEAN CORPUSCULAR HGB CONC 32.3 g/dl (32.0-36.5); MEAN CORPUSCULAR VOLUME 84.2 fl (80.0-96.0); MONO % 10.8 % (0.0-5.0); NEUTROPHILS # 7.2 10^3/uL (1.8-7.7); NEUTROPHILS % 76.5 % (36.0-66.0); PLATELET COUNT, AUTOMATED 243 10^3/uL (150-450); RED BLOOD COUNT 3.42 10^6/uL (4.30-6.10); RED CELL DISTRIBUTION WIDTH 16.3 % (11.5-14.5); WHITE BLOOD COUNT 9.4 10^3/uL (4.0-10.0)
[2018-08-21 09:57] LABS: ALBUMIN 2.4 GM/DL (3.2-5.2); ALBUMIN/GLOBULIN RATIO 0.56 (1.00-1.93); ALKALINE PHOSPHATASE 233 U/L (45-117); ALT/SGPT 28 U/L (12-78); ANION GAP 6 MEQ/L (8-16); AST/SGOT 31 U/L (7-37); BILIRUBIN,TOTAL 0.5 MG/DL (0.2-1.0); BLOOD UREA NITROGEN 20 MG/DL (7-18); C REACTIVE PROTEIN QUANTITATIV 5.94 MG/DL (0.00-0.30); CARBON DIOXIDE LEVEL 28 MEQ/L (21-32); CHLORIDE LEVEL 101 MEQ/L (98-107); CK-MB VALUE MASS < 1.0 NG/ML (<3.6); CPK CREATINE PHOSPHOKINASE 55 U/L (39-308); GLOMERULAR FILTRATION RATE > 60.0 (>56); GLUCOSE, FASTING 136 MG/DL (70-100); MAGNESIUM LEVEL 2.1 MG/DL (1.8-2.4); MB/CK RELATIVE INDEX 1.82 (< OR =4); POTASSIUM SERUM 3.9 MEQ/L (3.5-5.1); SODIUM LEVEL 135 MEQ/L (136-145); TOTAL PROTEIN 6.7 GM/DL (6.4-8.2); TROPONIN I 0.51 NG/ML (< 0.10)
[2018-08-21] MEDS: LevoFLOXacin IV 750 MG in APPROPRIATE DILUENT 1 EA IV (11:17)
[2018-08-21 12:36] LABS: BEDSIDE GLUCOSE 128 MG/DL (70-105)
[2018-08-21 15:40] LABS: CK-MB VALUE MASS < 1.0 NG/ML (<3.6); CPK CREATINE PHOSPHOKINASE 50 U/L (39-308); TROPONIN I 0.47 NG/ML (< 0.10)
[2018-08-21] MEDS: ALBUTEROL SULFATE 2.5 MG/0.5 ML INH NEB SOLN NEB (19:31)
[2018-08-21] MEDS: LIDOCAINE 5% (LIDODERM) PATCH TD (20:00)
[2018-08-21] MEDS: CYCLOBENZAPRINE 10 MG TAB PO (23:16)
[2018-08-22] MEDS: XTAMPZA 36 MG PO ×2 (05:56→17:16)
[2018-08-22] MEDS: METOPROLOL TART 12.5 MG PER 1/2 TAB PO ×3 (06:00→22:00)
[2018-08-22] MEDS: metFORMIN XR 500MG TAB *GLUCOPHAGE XR PO ×2 (06:00→17:26)
[2018-08-22 07:44] LABS: BEDSIDE GLUCOSE 93 MG/DL (70-105)
[2018-08-22] MEDS: **NOTE PATIENT COMMENT** MISC XX (08:04)
[2018-08-22] MEDS: oxyCODONE 5MG TAB PO ×5 (08:04→21:13)
[2018-08-22 08:08] LABS: BASO % 0.1 % (0.0-1.0); EOS # 0.1 10^3/uL (0.0-0.50); EOS % 0.5 % (0.0-3.0); HEMATOCRIT 27.4 % (42.0-52.0); LYMPH # 1.2 10^3/uL (1.5-4.5); LYMPH % 12.6 % (24.0-44.0); MEAN CORPUSCULAR HEMOGLOBIN 26.8 pg (27.0-33.0); MEAN CORPUSCULAR HGB CONC 32.8 g/dl (32.0-36.5); MEAN CORPUSCULAR VOLUME 81.5 fl (80.0-96.0); MONO % 10.5 % (0.0-5.0); NEUTROPHILS # 6.9 10^3/uL (1.8-7.7); NEUTROPHILS % 74.3 % (36.0-66.0); PLATELET COUNT, AUTOMATED 215 10^3/uL (150-450); RED BLOOD COUNT 3.36 10^6/uL (4.30-6.10); RED CELL DISTRIBUTION WIDTH 16.2 % (11.5-14.5); WHITE BLOOD COUNT 9.3 10^3/uL (4.0-10.0)
[2018-08-22 08:27] LABS: ALBUMIN 2.4 GM/DL (3.2-5.2); ALBUMIN/GLOBULIN RATIO 0.56 (1.00-1.93); ALKALINE PHOSPHATASE 220 U/L (45-117); ALT/SGPT 27 U/L (12-78); ANION GAP 4 MEQ/L (8-16); AST/SGOT 33 U/L (7-37); BILIRUBIN,TOTAL 0.5 MG/DL (0.2-1.0); BLOOD UREA NITROGEN 16 MG/DL (7-18); CALCIUM LEVEL 9.1 MG/DL (8.5-10.1); CARBON DIOXIDE LEVEL 30 MEQ/L (21-32); CHLORIDE LEVEL 101 MEQ/L (98-107); CREATININE FOR GFR 0.75 MG/DL (0.70-1.30); GLOMERULAR FILTRATION RATE > 60.0 (>56); GLUCOSE, FASTING 98 MG/DL (70-100); POTASSIUM SERUM 3.8 MEQ/L (3.5-5.1); SODIUM LEVEL 135 MEQ/L (136-145); TOTAL PROTEIN 6.7 GM/DL (6.4-8.2)
[2018-08-22] MEDS: GABAPENTIN 300 MG CAP PO ×3 (10:00→21:00)
[2018-08-22] MEDS: LevoFLOXacin IV 750 MG in APPROPRIATE DILUENT 1 EA IV (11:06)
[2018-08-22 11:30] LABS: C REACTIVE PROTEIN QUANTITATIV 6.29 MG/DL (0.00-0.30)
[2018-08-22] MEDS ORDERED: PROPOFOL 200 MG/20 ML VIAL As Ordered (13:29)
[2018-08-22] MEDS ORDERED: fentaNYL 100 MCG/2 ML INJECTION (J3010) As Ordered (13:34)
[2018-08-22] MEDS ORDERED: LIDOCAINE 2% INJ 100 MG/5 ML SDV (FOR ANES.) As Ordered (13:34)
[2018-08-22] MEDS ORDERED: CETACAINE SPRAY 5GM As Ordered (14:13)
[2018-08-22] MEDS: ATORVASTATIN 20 MG TAB PO (15:00)
[2018-08-22] MEDS: ASPIRIN 81 MG ENTERIC TAB PO (15:00)
[2018-08-22] MEDS: PANTOPRAZOLE 40MG TAB (PROTONIX) PO (15:00)
[2018-08-22] MEDS ORDERED: LIDOCAINE 5% (LIDODERM) PATCH As Ordered (15:51)
[2018-08-22] MEDS: LIDOCAINE 5% (LIDODERM) PATCH TD (15:59)
[2018-08-22 17:15] LABS: BEDSIDE GLUCOSE 91 MG/DL (70-105)
[2018-08-22] MEDS: ENOXAPARIN 120 MG/0.8 ML SYR (J1650) SC (17:16)
[2018-08-22] MEDS: ALBUTEROL SULFATE 2.5 MG/0.5 ML INH NEB SOLN NEB (19:55)
[2018-08-23] MEDS: oxyCODONE 5MG TAB PO ×2 (01:25→12:55)
[2018-08-23] MEDS: **NOTE PATIENT COMMENT** MISC XX (04:50)
[2018-08-23 05:12] LABS: BASO % 0.2 % (0.0-1.0); EOS % 0.2 % (0.0-3.0); HEMATOCRIT 25.7 % (42.0-52.0); HEMOGLOBIN 8.5 g/dl (13.5-17.5); IMMATURE GRANULOCYTE % 1.4 % (0-3.0); LYMPH # 0.9 10^3/uL (1.5-4.5); LYMPH % 7.6 % (24.0-44.0); MEAN CORPUSCULAR HEMOGLOBIN 26.5 pg (27.0-33.0); MEAN CORPUSCULAR HGB CONC 33.1 g/dl (32.0-36.5); MEAN CORPUSCULAR VOLUME 80.1 fl (80.0-96.0); MONO # 1.1 10^3/uL (0.0-0.8); MONO % 9.8 % (0.0-5.0); NEUTROPHILS # 9.1 10^3/uL (1.8-7.7); NEUTROPHILS % 80.8 % (36.0-66.0); PLATELET COUNT, AUTOMATED 211 10^3/uL (150-450); RED BLOOD COUNT 3.21 10^6/uL (4.30-6.10); RED CELL DISTRIBUTION WIDTH 16.1 % (11.5-14.5); WHITE BLOOD COUNT 11.2 10^3/uL (4.0-10.0)
[2018-08-23 05:37] LABS: ALBUMIN 2.1 GM/DL (3.2-5.2); ALKALINE PHOSPHATASE 242 U/L (45-117); ALT/SGPT 33 U/L (12-78); ANION GAP 8 MEQ/L (8-16); AST/SGOT 49 U/L (7-37); BILIRUBIN,TOTAL 0.6 MG/DL (0.2-1.0); BLOOD UREA NITROGEN 17 MG/DL (7-18); CALCIUM LEVEL 8.4 MG/DL (8.5-10.1); CARBON DIOXIDE LEVEL 28 MEQ/L (21-32); CHLORIDE LEVEL 99 MEQ/L (98-107); CREATININE FOR GFR 0.94 MG/DL (0.70-1.30); GLOMERULAR FILTRATION RATE > 60.0 (>56); GLUCOSE, FASTING 133 MG/DL (70-100); MAGNESIUM LEVEL 1.7 MG/DL (1.8-2.4); SODIUM LEVEL 135 MEQ/L (136-145); TOTAL PROTEIN 6.3 GM/DL (6.4-8.2)
[2018-08-23] MEDS: METOPROLOL TART 12.5 MG PER 1/2 TAB PO (06:00)
[2018-08-23] MEDS: metFORMIN XR 500MG TAB *GLUCOPHAGE XR PO (06:39)
[2018-08-23] MEDS: XTAMPZA 36 MG PO (06:39)
[2018-08-23] MEDS: LevoFLOXacin IV 750 MG in APPROPRIATE DILUENT 1 EA IV (08:34)
[2018-08-23] MEDS: ATORVASTATIN 20 MG TAB PO (08:34)
[2018-08-23] MEDS: PANTOPRAZOLE 40MG TAB (PROTONIX) PO (08:34)
[2018-08-23] MEDS: GABAPENTIN 300 MG CAP PO ×3 (08:34→13:00)
[2018-08-23] MEDS: ASPIRIN 81 MG ENTERIC TAB PO (08:34)
== END 2018-08-23 13:30 | disposition home or self-care (01) | DRG 948 ==
LOC: M ICU 08-20 18:02 → M ED 11:36 → M ED INP 14:49 → M MSPAV 17:12
PROC: 0DJ08ZZ Inspection of Upper Intestinal Tract, Via Natural or Artificial Opening Endoscopic (ICD-10-PCS; principal; 2018-08-22 14:07)
DX: G89.3 Neoplasm related pain (acute) (chronic) (principal); C79.51 Secondary malignant neoplasm of bone; I82.A11 Acute embolism and thrombosis of right axillary vein; I82.B11 Acute embolism and thrombosis of right subclavian vein; I82.621 Acute embolism and thrombosis of deep veins of right upper extremity; C15.5 Malignant neoplasm of lower third of esophagus; E11.40 Type 2 diabetes mellitus with diabetic neuropathy, unspecified; I10 Essential (primary) hypertension; K59.09 Other constipation; Z87.891 Personal history of nicotine dependence; Z79.891 Long term (current) use of opiate analgesic; Z79.899 Other long term (current) drug therapy; Z79.84 Long term (current) use of oral hypoglycemic drugs; R13.10 Dysphagia, unspecified

== ENCOUNTER 2018-09-09 09:29 | Inpatient (IN) | payer MEDICARE, MEDICAID ==
[2018-09-09] MEDS ORDERED: ONDANSETRON 4MG/2ML VIAL (J2405) As Ordered (10:44)
[2018-09-09] MEDS: ONDANSETRON 4MG/2ML VIAL (J2405) IV ×3 (10:45→20:55)
[2018-09-09] MEDS: NS 1,000 ML IV ×2 (11:08→15:00)
[2018-09-09] MEDS: PROTAMINE SULF INJ 50 MG/5 ML VIAL (J2720) IV (11:14)
[2018-09-09] MEDS: PANTOPRAZOLE SODIUM 40 MG in D5W 50 ML IV (11:38)
[2018-09-09] MEDS: PANTOPRAZOLE 40MG INJ (PROTONIX) (C9113) IV ×2 (11:38→20:55)
[2018-09-09 11:45] LABS: TYPE AND SCREEN 1
[2018-09-09 11:45] LABS: HEMATOCRIT 26.2 % (42.0-52.0); HEMOGLOBIN 8.5 g/dl (13.5-17.5); MEAN CORPUSCULAR HGB CONC 32.4 g/dl (32.0-36.5); MEAN CORPUSCULAR VOLUME 83.2 fl (80.0-96.0); PLATELET COUNT, AUTOMATED 109 10^3/uL (150-450); RED BLOOD COUNT 3.15 10^6/uL (4.30-6.10); RED CELL DISTRIBUTION WIDTH 20.3 % (11.5-14.5); WHITE BLOOD COUNT 14.6 10^3/uL (4.0-10.0)
[2018-09-09 11:46] LABS: ANION GAP 10 MEQ/L (8-16); BLOOD UREA NITROGEN 17 MG/DL (7-18); CALCIUM LEVEL 7.2 MG/DL (8.5-10.1); CARBON DIOXIDE LEVEL 21 MEQ/L (21-32); CHLORIDE LEVEL 102 MEQ/L (98-107); CREATININE FOR GFR 0.64 MG/DL (0.70-1.30); GLOMERULAR FILTRATION RATE > 60.0 (>56); GLUCOSE, FASTING 115 MG/DL (70-100); POTASSIUM SERUM 4.6 MEQ/L (3.5-5.1); SODIUM LEVEL 133 MEQ/L (136-145)
[2018-09-09 11:47] LABS: ADD MANUAL DIFFER YES; DIFF SLIDE NUMBER 124; POSITIVE MORPH POS FLAG
[2018-09-09 11:55] LABS: INR 1.24; PROTHROMBIN TIME 15.8 SECONDS (12.1-14.4)
[2018-09-09 11:56] LABS: PARTIAL THROMBOPLASTIN TIME 33.1 SECONDS (25.4-37.6)
[2018-09-09] MEDS: fentaNYL 100 MCG/2 ML INJECTION (J3010) IV ×2 (12:09→13:28)
[2018-09-09 12:30] LABS: BANDS 4 % (< 11); EOSINOPHILS 1 % (0-5); LYMPHOCYTES 8 % (16-52); MONOCYTES 2 % (0-8); MYELOCYTES 1 % (0-0); NEUTROPHILS 84 % (35-75); PLATELET ESTIMATE DECREASED (NORMAL); POLYCHROMASIA 1+
[2018-09-09 12:31] LABS: HYPOCHROMASIA 1+; POIKILOCYTOSIS 1+
[2018-09-09 12:33] LABS: SCHISTOCYTES 1+
[2018-09-09 12:34] LABS: ANISOCYTOSIS 1+
[2018-09-09 12:53] LABS: IMMEDIATE SPIN CROSSMATCH 1 1
[2018-09-09] MEDS: LevoFLOXacin IV 750 MG in APPROPRIATE DILUENT 1 EA IV (13:22)
[2018-09-09] MEDS: ACETAMINOPHEN TAB 650MG DOSE (2X325MG) PO (13:24)
[2018-09-09] MEDS ORDERED: GLUCAGON FOR INJ 1 MG VIAL (J1610) SC (14:00)
[2018-09-09] MEDS ORDERED: GLUCOSE 4 GM CHEW TABLET PO (14:00)
[2018-09-09] MEDS ORDERED: DEXTROSE 50% 50 ML SYRINGE IV (14:00)
[2018-09-09] MEDS ORDERED: PANTOPRAZOLE SODIUM 40 MG in D5W 50 ML IV (16:00)
[2018-09-09 16:55] LABS: BEDSIDE GLUCOSE 125 MG/DL (70-105)
[2018-09-09] MEDS: HumaLOG INSULIN (NovoLOG) PER UNIT SC (17:13)
[2018-09-09] MEDS: HYDROMORPHONE HCL 0.5 MG/ 0.5 ML SYRINGE (J1170 PER 1) IV ×2 (17:22→20:57)
[2018-09-09] MEDS ORDERED: HumaLOG INSULIN (NovoLOG) PER UNIT SC (17:30)
[2018-09-09] MEDS: GLYCERIN ADULT SUPP PR (20:55)
[2018-09-10] MEDS: HumaLOG INSULIN (NovoLOG) PER UNIT SC ×4 (00:03→17:49)
[2018-09-10] MEDS: NS 1,000 ML IV ×2 (00:04→10:39)
[2018-09-10 00:05] LABS: BEDSIDE GLUCOSE 126 MG/DL (70-105)
[2018-09-10] MEDS: ONDANSETRON 4MG/2ML VIAL (J2405) IV ×6 (00:05→20:56)
[2018-09-10] MEDS: HYDROMORPHONE HCL 0.5 MG/ 0.5 ML SYRINGE (J1170 PER 1) IV ×4 (01:05→18:03)
[2018-09-10] MEDS ORDERED: fentaNYL 12 MCG/HR PATCH TOP (02:00)
[2018-09-10] MEDS: fentaNYL 12 MCG/HR PATCH TOP (02:29)
[2018-09-10 05:25] LABS: BASO % 0.1 % (0.0-1.0); EOS % 0.3 % (0.0-3.0); HEMATOCRIT 26.3 % (42.0-52.0); HEMOGLOBIN 8.6 g/dl (13.5-17.5); IMMATURE GRANULOCYTE % 2.4 % (0-3.0); LYMPH # 0.9 10^3/uL (1.5-4.5); LYMPH % 5.9 % (24.0-44.0); MEAN CORPUSCULAR HGB CONC 32.7 g/dl (32.0-36.5); MEAN CORPUSCULAR VOLUME 82.4 fl (80.0-96.0); MONO # 1.2 10^3/uL (0.0-0.8); MONO % 7.7 % (0.0-5.0); NEUTROPHILS % 83.6 % (36.0-66.0); RED BLOOD COUNT 3.19 10^6/uL (4.30-6.10); WHITE BLOOD COUNT 15.6 10^3/uL (4.0-10.0)
[2018-09-10 05:28] LABS: ADD MANUAL DIFFER NO; DIFF SLIDE NUMBER 115; PLATELET COUNT, AUTOMATED 72 10^3/uL (150-450); POSITIVE MORPH POS FLAG; SUSPECT SAMPLE POS FLAG
[2018-09-10 05:29] LABS: IMMATURE PLATELET FRACTION % 5.5 % (0.0-10.9); PLATELET F 3.6
[2018-09-10 05:38] LABS: ANION GAP 11 MEQ/L (8-16); BLOOD UREA NITROGEN 17 MG/DL (7-18); CALCIUM LEVEL 6.7 MG/DL (8.5-10.1); CARBON DIOXIDE LEVEL 20 MEQ/L (21-32); CHLORIDE LEVEL 105 MEQ/L (98-107); CREATININE FOR GFR 0.55 MG/DL (0.70-1.30); GLOMERULAR FILTRATION RATE > 60.0 (>56); GLUCOSE, FASTING 114 MG/DL (70-100); POTASSIUM SERUM 4.1 MEQ/L (3.5-5.1); SODIUM LEVEL 136 MEQ/L (136-145)
[2018-09-10] MEDS: PANTOPRAZOLE 40MG INJ (PROTONIX) (C9113) IV ×2 (09:38→20:56)
[2018-09-10] MEDS: PROMETHAZINE INJ 25 MG/ML VIAL (J2550) IV (10:57)
[2018-09-10] MEDS: FLEET ENEMA PR (10:57)
[2018-09-10 11:24] LABS: BEDSIDE GLUCOSE 153 MG/DL (70-105)
[2018-09-10] MEDS: EUCERIN 120GM CREAM TOP ×2 (11:25→20:56)
[2018-09-10 12:19] LABS: HEMATOCRIT 25.6 % (42.0-52.0); HEMOGLOBIN 8.3 g/dl (13.5-17.5)
[2018-09-10] MEDS: VANCOMYCIN HCL 1,000 MG, VIAL MATE ADAPTER 1 EACH in D5W 250 ML IV (12:38)
[2018-09-10 12:49] LABS: LACTIC ACID SEPSIS PROTOCOL 1.6 MMOL/L (0.4-2.0)
[2018-09-10] MEDS: LevoFLOXacin IV 500 MG in APPROPRIATE DILUENT 1 EA IV (14:29)
[2018-09-10] MEDS: VANCOMYCIN HCL 500 MG in D5W MINI-BAG PLUS 100 ML IV (15:25)
[2018-09-10 16:51] LABS: ALBUMIN 2.2 GM/DL (3.2-5.2); ALBUMIN/GLOBULIN RATIO 0.67 (1.00-1.93); ALKALINE PHOSPHATASE 309 U/L (45-117); ALT/SGPT 29 U/L (12-78); AST/SGOT 49 U/L (7-37); BILIRUBIN,DIRECT 0.3 MG/DL (0.0-0.2); BILIRUBIN,TOTAL 0.9 MG/DL (0.2-1.0); LDH LACTATE DEHYDROGENASE 647 U/L (87-241); SLIDE REVIEW Report; SOURCE PERIPHERAL SMEAR; TOTAL PROTEIN 5.5 GM/DL (6.4-8.2)
[2018-09-10 16:53] LABS: RETIC HEMOGLOBIN EQUIVALENT 30.3 pg (24-36); RETICULOCYTE % 5.2 % (0.5-1.5)
[2018-09-10] MEDS: CEFEPIME HCL 2 GM in D5W MINI-BAG PLUS 50 ML IV (17:26)
[2018-09-10 17:47] LABS: BEDSIDE GLUCOSE 169 MG/DL (70-105)
[2018-09-10] MEDS: CALCIUM GLUCONATE 1,000 MG in D5W MINI-BAG PLUS 100 ML IV (18:55)
[2018-09-10 19:54] LABS: REASON FOR REVIEW PLATELET MORPHOLOGY
[2018-09-11] MEDS: ONDANSETRON 4MG/2ML VIAL (J2405) IV ×6 (00:25→21:10)
[2018-09-11] MEDS: VANCOMYCIN HCL 1,000 MG, VIAL MATE ADAPTER 1 EACH in D5W 250 ML IV (00:26)
[2018-09-11] MEDS: NS 1,000 ML IV (00:26)
[2018-09-11 00:36] LABS: HEMOGLOBIN 7.7 g/dl (13.5-17.5)
[2018-09-11 01:16] LABS: IMMEDIATE SPIN CROSSMATCH 1 1
[2018-09-11] MEDS: CEFEPIME HCL 2 GM in D5W MINI-BAG PLUS 50 ML IV (02:01)
[2018-09-11 02:06] LABS: BEDSIDE GLUCOSE 203 MG/DL (70-105)
[2018-09-11] MEDS: MIDAZOLAM INJ 2 MG/2 ML VIAL (J2250) IV (04:13)
[2018-09-11] MEDS: diphenhydrAMINE INJ 50MG/ML VIAL (J1200) IV (04:17)
[2018-09-11 05:38] LABS: HEMATOCRIT 27.7 % (42.0-52.0); HEMOGLOBIN 9.3 g/dl (13.5-17.5); MEAN CORPUSCULAR HEMOGLOBIN 28.2 pg (27.0-33.0); MEAN CORPUSCULAR HGB CONC 33.6 g/dl (32.0-36.5); MEAN CORPUSCULAR VOLUME 83.9 fl (80.0-96.0); WHITE BLOOD COUNT 17.1 10^3/uL (4.0-10.0)
[2018-09-11] MEDS: HYDROMORPHONE HCL 0.5 MG/ 0.5 ML SYRINGE (J1170 PER 1) IV ×3 (05:51→23:10)
[2018-09-11 05:56] LABS: ANION GAP 11 MEQ/L (8-16); BLOOD UREA NITROGEN 20 MG/DL (7-18); CALCIUM LEVEL 6.9 MG/DL (8.5-10.1); CARBON DIOXIDE LEVEL 19 MEQ/L (21-32); CHLORIDE LEVEL 106 MEQ/L (98-107); CREATININE FOR GFR 0.65 MG/DL (0.70-1.30); GLOMERULAR FILTRATION RATE > 60.0 (>56); GLUCOSE, FASTING 191 MG/DL (70-100); POTASSIUM SERUM 3.7 MEQ/L (3.5-5.1); SODIUM LEVEL 136 MEQ/L (136-145)
[2018-09-11 06:01] LABS: PLATELET COUNT, AUTOMATED 37 10^3/uL (150-450); POSITIVE MORPH POS FLAG
[2018-09-11 06:02] LABS: ADD MANUAL DIFFER YES; DIFF SLIDE NUMBER 56
[2018-09-11 06:05] LABS: LYMPHOCYTES 4 % (16-52); MONOCYTES 7 % (0-8); NEUTROPHILS 89 % (35-75); PLATELET ESTIMATE MARKED DECREASE (NORMAL)
[2018-09-11 06:06] LABS: ANISOCYTOSIS 2+; SCHISTOCYTES 1+
[2018-09-11 06:10] LABS: HELMET CELLS 1+; POIKILOCYTOSIS 1+
[2018-09-11 06:48] LABS: IMMATURE PLATELET FRACTION % 10.2 % (0.0-10.9)
[2018-09-11] MEDS: HumaLOG INSULIN (NovoLOG) PER UNIT SC ×2 (06:52)
[2018-09-11] MEDS: EUCERIN 120GM CREAM TOP ×2 (08:35→21:00)
[2018-09-11] MEDS ORDERED: LORazepam 2 MG/ML VIAL (J2060) As Ordered (09:17)
[2018-09-11] MEDS: LORazepam 2 MG/ML VIAL (J2060) IV ×3 (09:20→16:08)
[2018-09-11] MEDS ORDERED: ONDANSETRON 4MG/2ML VIAL (J2405) IV (09:30)
[2018-09-11] MEDS ORDERED: BISACODYL 10 MG SUPP PR (09:30)
[2018-09-11] MEDS ORDERED: ACETAMINOPHEN 650 MG SUPP PR (09:30)
[2018-09-11] MEDS: SCOPOLAMINE 1MG TRANSDERMAL PATCH TOP (10:14)
[2018-09-11] MEDS ORDERED: FENTANYL REMOVAL DOCUMENTATION MISC XX (10:15)
[2018-09-11] MEDS: MORPHINE 10MG/0.5ML ORAL CONCENTRATE SOLUTION U/D SL ×4 (10:15→21:10)
[2018-09-11] MEDS: fentaNYL 12 MCG/HR PATCH TOP (10:27)
[2018-09-12] MEDS: MORPHINE 10MG/0.5ML ORAL CONCENTRATE SOLUTION U/D SL ×2 (00:07→06:24)
[2018-09-12] MEDS: LORazepam 2 MG/ML VIAL (J2060) IV ×3 (00:07→11:15)
[2018-09-12] MEDS: ONDANSETRON 4MG/2ML VIAL (J2405) IV ×3 (01:00→11:08)
[2018-09-12] MEDS: HYDROMORPHONE HCL 0.5 MG/ 0.5 ML SYRINGE (J1170 PER 1) IV (02:55)
[2018-09-12 08:06] LABS: HAPTOGLOBIN 99 mg/dL (34-200)
[2018-09-12] MEDS ORDERED: ASPIRIN 81 MG ENTERIC TAB PO (09:00)
[2018-09-12] MEDS ORDERED: ATORVASTATIN 20 MG TAB PO (09:00)
[2018-09-12] MEDS: GABAPENTIN 300 MG CAP PO (09:00)
[2018-09-12] MEDS: SODIUM CHLORIDE 0.9% INJ 10 ML SYR IV ×2 (11:13→16:08)
[2018-09-12] MEDS: EUCERIN 120GM CREAM TOP (11:15)
[2018-09-12] MEDS: HumaLOG INSULIN (NovoLOG) PER UNIT SC (12:00)
[2018-09-12] MEDS ORDERED: METOCLOPRAMIDE 5 MG TAB PO (12:45)
[2018-09-12] MEDS ORDERED: DEXTROSE 50% 50 ML SYRINGE IV (12:45)
[2018-09-12] MEDS ORDERED: GLUCAGON FOR INJ 1 MG VIAL (J1610) SC (12:45)
[2018-09-12] MEDS ORDERED: GLUCOSE 4 GM CHEW TABLET PO (12:45)
[2018-09-12] MEDS ORDERED: CYCLOBENZAPRINE 10 MG TAB PO (12:45)
[2018-09-12] MEDS ORDERED: ALBUTEROL 90 MCG/ACT 8GM HFA INHALER INH (12:45)
[2018-09-12] MEDS: NS 1,000 ML IV (13:17)
[2018-09-12 13:41] LABS: BEDSIDE GLUCOSE 161 MG/DL (70-105)
[2018-09-12] MEDS ORDERED: SCOPOLAMINE 1MG TRANSDERMAL PATCH TOP (15:15)
[2018-09-12 15:24] LABS: ALBUMIN 1.8 GM/DL (3.2-5.2); ALBUMIN/GLOBULIN RATIO 0.56 (1.00-1.93); ALKALINE PHOSPHATASE 269 U/L (45-117); ALT/SGPT 41 U/L (12-78); ANION GAP 10 MEQ/L (8-16); AST/SGOT 97 U/L (7-37); BILIRUBIN,TOTAL 0.9 MG/DL (0.2-1.0); BLOOD UREA NITROGEN 34 MG/DL (7-18); CALCIUM LEVEL 6.7 MG/DL (8.5-10.1); CARBON DIOXIDE LEVEL 21 MEQ/L (21-32); CHLORIDE LEVEL 115 MEQ/L (98-107); CREATININE FOR GFR 0.91 MG/DL (0.70-1.30); GLOMERULAR FILTRATION RATE > 60.0 (>56); GLUCOSE, FASTING 165 MG/DL (70-100); POTASSIUM SERUM 3.5 MEQ/L (3.5-5.1); SODIUM LEVEL 146 MEQ/L (136-145)
[2018-09-12] MEDS: MORPHINE 4 MG/ML 1ML VIAL/SYRINGE (J2270) IV ×2 (16:07→18:25)
[2018-09-12] MEDS ORDERED: GABAPENTIN 300 MG CAP PO (21:00)
[2018-09-12] MEDS ORDERED: PANTOPRAZOLE 40MG INJ (PROTONIX) (C9113) IV (21:00)
[2018-09-12] MEDS ORDERED: MIRTAZAPINE 7.5MG PER 1/2 TABLET PO (21:00)
[2018-09-13] MEDS ORDERED: FENTANYL REMOVAL DOCUMENTATION MISC XX (03:00)
== END 2018-09-12 21:38 | disposition expired | DRG 374 ==
LOC: M PCU 09-10 01:39 → M ED 09:29 → M ED INP 13:57 → M ICU 16:04
PROC: 30233N1 Transfusion of Nonautologous Red Blood Cells into Peripheral Vein, Percutaneous Approach (ICD-10-PCS; principal; 2018-09-09)
PROC: 30233K1 Transfusion of Nonautologous Frozen Plasma into Peripheral Vein, Percutaneous Approach (ICD-10-PCS; 2018-09-09)
DX: C15.9 Malignant neoplasm of esophagus, unspecified (principal); J18.9 Pneumonia, unspecified organism; I63.512 Cerebral infarction due to unspecified occlusion or stenosis of left middle cerebral artery; G93.5 Compression of brain; C79.51 Secondary malignant neoplasm of bone; K92.2 Gastrointestinal hemorrhage, unspecified; J90 Pleural effusion, not elsewhere classified; R64 Cachexia; G81.91 Hemiplegia, unspecified affecting right dominant side; K59.00 Constipation, unspecified; Z51.5 Encounter for palliative care; Z66 Do not resuscitate; E11.40 Type 2 diabetes mellitus with diabetic neuropathy, unspecified; D69.6 Thrombocytopenia, unspecified; I10 Essential (primary) hypertension; Z88.0 Allergy status to penicillin; Z88.5 Allergy status to narcotic agent; Z79.82 Long term (current) use of aspirin; Z79.84 Long term (current) use of oral hypoglycemic drugs; Z79.899 Other long term (current) drug therapy